=== PATIENT | male | born 1980 | race Two or more races ===

== ENCOUNTER 2021-12-18 12:51 | Outpatient (REF) | payer OTHER, SELFPAY ==
--- NOTE | ~2021-12-18 | US_ITS ---
EXAMINATION: US SCROTUM CLINICAL INFORMATION: Left testicular pain. COMPARISON: None TECHNIQUE: A sonogram of the scrotum was performed assessing baldwin-scale appearance and color Doppler flow. Spectral Doppler analysis of the arterial and venous flow were performed in the testes bilaterally. FINDINGS: RIGHT: Right testicle measures 4.3 x 2.0 x 2.9 cm, volume 13.1 mL. No focal testicular parenchymal lesions are visualized. Spectral Doppler analysis of the arterial and venous flow is normal in the right testis. Right epididymal head is normal in size. No right hydrocele or varicocele is seen. Right epididymal Doppler flow is normal. LEFT: Left testicle measures 4.3 x 2.1 x 2.7 cm, volume 12.8 mL. No focal testicular parenchymal lesions are visualized. Spectral Doppler analysis of the arterial and venous flow is normal in the left testis. Left epididymal head is normal in size. There is a small simple cyst in the tail of the epididymis measuring 4 mm. No left hydrocele or varicocele is seen. Left epididymal Doppler flow is normal. US/US scrotum IMPRESSION: Small 4 mm cyst in the tail of the left epididymis. Otherwise unremarkable exam.
== END 2021-12-18 12:52 | disposition home or self-care (01) ==
LOC: HO.HMGCX 12:51
PROVIDERS: Visit Provider Internal Medicine
DX: N50.812 Left testicular pain (principal)
CPT/HCPCS: 76870

== ENCOUNTER 2021-12-20 15:46 | Emergency (ER) | payer OTHER, SELFPAY ==
--- NOTE | ~2021-12-20 | US_ITS ---
EXAMINATION: RIGHT CALF ULTRASOUND CLINICAL INFORMATION: Pain status post running. COMPARISON: None TECHNIQUE: Targeted ultrasound. FINDINGS: The study demonstrates haziness appearance of the gastrocnemius muscle near the myotendinous junction with edematous changes. There is trace fluid posterior to the Achilles tendon as well as the level the ankle mortise. US/US extremity nonvascular IMPRESSION: There is evidence for soft tissue injury with sonographic changes near the myotendinous junction of the gastrocnemius muscle and the Achilles tendon. Recommend MRI to assess the extent of injury. There is no full-thickness tear of the Achilles tendon demonstrated.
[2021-12-20 16:27] VITALS: BP 127/91; PULSE 100; RESP 16; TEMP 36.9; O2SAT 97; BMI 34.4
[2021-12-20] MEDS: NaPROXEN 500 MG TABLET PO (16:52)
--- NOTE | 2021-12-20 17:06 | ED_ITS ---
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 Denies direct injury/trauma or fall. Admits to associated tingling. Onset (ago): hour(s) Related Data Previous Rx's Medication Instructions Recorded cyclobenzaprine 5 mg tablet 5 mg PO Q8H PRN 5 Days #14 tab 12/20/21 hydrocodone 5 mg-acetaminophen 325 1 tab PO Q8H PRN 3 Days #7 tab 12/20/21 mg tablet naproxen 500 mg tablet 500 mg PO BID PRN 10 Days #20 tab 12/20/21 Allergies Allergy/AdvReac Type Severity Reaction Status Date / Time Seasonal Allergies Allergy Runny Nose Verified 12/20/21 16:27 Review of Systems Review of Systems: Constitutional: No Fever, No Chills ENT/Mouth: No Ear Pain, No Nasal Congestion, No sore throat, No Rhinorrhea, No Swallowing Difficulty Cardiovascular: No Chest Pain, No SOB Respiratory: No Cough, No Sputum Gastrointestinal: No Nausea, No Vomiting, No Diarrhea, No Constipation, No Abdominal pain Genitourinary:, No Dysuria, No Urinary Frequency, No Urgency, No Flank Pain Musculoskeletal: +calf pain, No Myalgias, +calf Swelling Skin: No Skin Lesions, No rash Neuro: No Weakness, No Numbness, No Paresthesias Yes all other systems are reviewed and are negative [facility] Past Medical History Attestation statement: The following information was validated with the patient. Surgical History H/O vasectomy Social History Social History Advance Directives: No Advance Directives Information Provided: No Physical Exam Vital Signs: Vital Signs: Last Vital Signs Temp 98.4 F 12/20/21 16:27 Pulse 100 12/20/21 16:27 Resp 16 12/20/21 16:27 BP 127/91 H 12/20/21 16:27 Pulse Ox 97 12/20/21 16:27 BMI result Body Mass Index 34.4 Const: General: cooperative, healthy appearing and no acute distress Orientation/consciousness: patient oriented x3 Limitations: no limitations HEENT: Head: Yes normal to inspection and Yes atraumatic Ears: hearing grossly normal bilaterally General nose exam: Normal external nose present Face and sinus: Yes normal facial exam Eyes: General: appearance normal, both eyes and all related structures EOM: EOMs intact bilaterally Neck: Neck: Yes normal visual inspection and Yes no meningeal signs Resp: Effort & Inspection: normal respiratory effort and no respiratory distress Cardio: Rate: regular rate Peripheral pulses: dorsalis pedis present Skin: Rashes: no rashes Wounds: no wounds Neuro: General: patient oriented x3, tone normal and no meningeal signs Gait exam (Neuro): Normal gait present Extrem: Other: + swelling to right calf with tenderness greatest at medial aspect. No appreciable erythema/ecchymosis. Dunham test negative. Neurovascular intact distally Course Course Course Narrative: US extremity nonvascular IMPRESSION: There is evidence for soft tissue injury with sonographic changes near the myotendinous junction of the gastrocnemius muscle and the Achilles tendon. Recommend MRI to assess the extent of injury. There is no full-thickness tear of the Achilles tendon demonstrated. > patient placed in a posterior short-leg in plantar flexion & supplied with crutches to be nonweightbearing and follow up with Orthopedics Case discussed with Dr. 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 On exam vital signs stable, NAD/well-appearing, physical exam as above. Concern for gastronemius tear/strain vs Achilles tendon rupture/partial tear Plan: Ultrasound Medical Records Attestation: I reviewed the patient's medical records. Lab Data Attestation: I reviewed the patient's lab results. Discharge Plan Discharge Clinical Impression: Gastrocnemius tear Qualifiers: Encounter type: initial encounter Laterality: right Qualified Code(s): S86.111A - Strain of other muscle(s) and tendon(s) of posterior muscle group at lower leg level, right leg, initial encounter Patient Disposition: Home, Self-Care Instructions: R.I.C.E. Treatment (ED), Crutch Instructions (ED) Additional Instructions: Your ultrasound shows significant soft tissue injury near your gastrocnemius muscle and Achilles tendon, suspicious for tear Keep splint on, dry, and clean DO NOT PUT ANY WEIGHT ON YOUR RIGHT LEG. USE CRUTCHES. Ice and elevate Flexeril is a muscle relaxer, take at night as it makes you drowsy, do not drive, drink alcohol, or operate machinery while taking it Naproxen as an anti-inflammatory / pain medication, take with food [place] as an opiate pain medication, take only when pain is severe for the next 3 days. Your [place] has Tylenol mixed in do not exceed 4 g of Tylenol in 1 day. In addition take Tylenol at home If symptoms persist or worsen, pain becomes unbearable, you developed urinary retention or incontinence, or weakness return to the ED Prescriptions: New hydrocodone-acetaminophen 5-325 mg tablet 1 tab PO Q8H PRN (Reason: pain, severe) 3 Days Qty: 7 0RF naproxen 500 mg tablet 500 mg PO BID PRN (Reason: pain) 10 Days Qty: 20 0RF cyclobenzaprine 5 mg tablet 5 mg PO Q8H PRN (Reason: pain (scale score 7-10)) 5 Days Qty: 14 0RF Referrals: Yao Castellanos MD [Physician] - 3 days
== END 2021-12-20 19:19 | disposition home or self-care (01) ==
PROVIDERS: Emergency Provider Emergency Medicine Emergency Medical Services; PCP Internal Medicine
DX: S86.111A Strain of other muscle(s) and tendon(s) of posterior muscle group at lower leg level, right leg, initial encounter (principal); M79.661 Pain in right lower leg; Y29.XXXA Contact with blunt object, undetermined intent, initial encounter; Y93.9 Activity, unspecified; Y92.9 Unspecified place or not applicable; Y99.9 Unspecified external cause status; Z79.899 Other long term (current) drug therapy
CPT/HCPCS: 76882; 99283; 99284

== ENCOUNTER → 2021-12-24 11:15 | Outpatient (BNVA) | payer OTHER, SELFPAY | PROVIDERS: PCP Internal Medicine; Visit Provider Physician Assistant | DX: S86.011A Strain of right Achilles tendon, initial encounter (principal) | CPT/HCPCS: 99202 ==

== ENCOUNTER 2022-01-02 09:07 | Outpatient (REF) | payer OTHER, SELFPAY ==
[2022-01-02 11:10] LABS: MANUAL DIFF FLAG NO
[2022-01-02 11:26] LABS: Basophils Absolute Auto 0.1 X10*3/uL (0.0-0.2); Eosinophils Absolute Auto 0.2 X10*3/uL (0.0-0.4); Eosinophils Percent Auto 4.4 % (0-4); Hematocrit 45.2 % (42.0-52.0); Hemoglobin 15.1 g/dl (14.0-18.0); Imm Gran Abs Auto 0.01 X10*3/uL (0.00-0.03); Imm Gran Pct Auto 0.2 % (0.0-0.4); Lymphocytes Absolute Auto 1.2 X10*3/uL (1.2-4.9); Lymphocytes Percent Auto 25.2 % (20-40); Mean Corpuscular HGB Conc 33.4 g/dl (31.0-36.0); Mean Corpuscular Hemoglobin 29.8 pg (27.0-33.0); Mean Corpuscular Volume 89.3 fL (80.0-98.0); Mean Platelet Volume 11.4 fL (9.4-12.4); Monocytes Absolute Auto 0.4 X10*3/uL (0.1-1.2); Neutrophils Absolute Auto 2.9 x10*3/uL (2.0-8.3); Neutrophils Percent Auto 60.2 % (45-73); Platelet Count 232 X10*3/uL (160-400); Red Blood Count 5.06 X10*6/uL (4.60-5.80); Red Cell Distribution Width 12.1 % (11.0-16.0); White Blood Count 4.8 X10*3/uL (4.8-10.8)
[2022-01-02 12:00] LABS: Alanine Aminotransferase 29 U/L (0-40); Anion Gap 11 (12-20); Aspartate Amino Transferase 22 U/L (5-37); Bilirubin Total 0.4 mg/dL (0.0-1.0); Blood Urea Nitrogen 18 mg/dL (9-16); Calcium 9.4 mg/dL (8.4-10.2); Carbon Dioxide 26 mmol/L (22-29); Chloride 110 mmol/L (96-108); Estimated Glomerular Filt Rate > 60; Glucose Random 96 mg/dL (60-115); Potassium 4.8 mmol/L (3.3-5.1); Sodium 142 mmol/L (135-145); Thyroid Stimulating Hormone 2.22 uIU/mL (0.32-4.0); Total Protein 7.3 g/dL (6.5-8.0); Vitamin D 25-OH Total 24.3 ng/mL (>30)
[2022-01-02 12:01] LABS: Alkaline Phosphatase 75 U/L (39-117); Cholesterol 160 mg/dL; HDL Cholesterol 36 mg/dL; LDL Cholesterol Calculated 94 mg/dl; Triglycerides 151 mg/dL
[2022-01-08 01:13] LABS: Testosterone, Total 162 ng/dL (250-1100)
== END 2022-01-02 09:08 | disposition home or self-care (01) ==
LOC: HO.HMGCLDS 09:07
PROVIDERS: PCP Internal Medicine; Visit Provider Internal Medicine
DX: Z00.01 Encounter for general adult medical examination with abnormal findings (principal)
CPT/HCPCS: 36415; 80053; 80061; 82306; 84403; 84443; 85025

== ENCOUNTER → 2022-01-28 09:37 | Outpatient (BNVA) | payer OTHER, SELFPAY | PROVIDERS: PCP Internal Medicine; Visit Provider Physician Assistant | DX: S86.111A Strain of other muscle(s) and tendon(s) of posterior muscle group at lower leg level, right leg, initial encounter (principal) | CPT/HCPCS: 99212 ==

== ENCOUNTER → 2022-01-29 13:46 | Outpatient (REF) | payer OTHER, SELFPAY | LOC: HO.SL 13:46 | PROVIDERS: PCP Internal Medicine; Visit Provider Internal Medicine | DX: R53.83 Other fatigue (principal) | CPT/HCPCS: 95806 ==

== ENCOUNTER 2022-03-19 09:24 | Outpatient (REF) | payer OTHER, SELFPAY ==
[2022-03-26 11:56] LABS: Testosterone, Total 182 ng/dL (250-1100)
== END 2022-03-19 09:25 | disposition home or self-care (01) ==
LOC: HO.HMGCLDS 09:24
PROVIDERS: PCP Internal Medicine; Visit Provider Internal Medicine
DX: R79.89 Other specified abnormal findings of blood chemistry (principal)
CPT/HCPCS: 36415; 84403

== ENCOUNTER 2022-12-23 11:22 | Outpatient (REF) | payer OTHER, SELFPAY ==
[2022-12-23 12:50] LABS: MANUAL DIFF FLAG NO
[2022-12-23 12:56] LABS: Basophils Percent Auto 0.8 % (0-2); Eosinophils Absolute Auto 0.1 X10*3/uL (0.0-0.4); Hematocrit 47.1 % (42.0-52.0); Hemoglobin 15.8 g/dl (14.0-18.0); Imm Gran Abs Auto 0.02 X10*3/uL (0.00-0.03); Imm Gran Pct Auto 0.4 % (0.0-0.4); Lymphocytes Absolute Auto 1.6 X10*3/uL (1.2-4.9); Lymphocytes Percent Auto 30.4 % (20-40); Mean Corpuscular HGB Conc 33.5 g/dl (31.0-36.0); Mean Corpuscular Hemoglobin 29.2 pg (27.0-33.0); Mean Corpuscular Volume 87.1 fL (80.0-98.0); Mean Platelet Volume 10.9 fL (9.4-12.4); Monocytes Absolute Auto 0.3 X10*3/uL (0.1-1.2); Monocytes Percent Auto 5.7 % (2-11); Neutrophils Absolute Auto 3.1 x10*3/uL (2.0-8.3); Neutrophils Percent Auto 60.7 % (45-73); Platelet Count 264 X10*3/uL (160-400); Red Blood Count 5.41 X10*6/uL (4.60-5.80); Red Cell Distribution Width 11.8 % (11.0-16.0); White Blood Count 5.1 X10*3/uL (4.8-10.8)
[2022-12-23 13:39] LABS: Alanine Aminotransferase 29 U/L (0-40); Albumin Level 4.4 g/dL (3.5-5.0); Alkaline Phosphatase 68 U/L (39-117); Anion Gap 11 (12-20); Aspartate Amino Transferase 21 U/L (5-37); Bilirubin Total 0.6 mg/dL (0.0-1.0); Blood Urea Nitrogen 14 mg/dL (9-16); Calcium 9.3 mg/dL (8.4-10.2); Carbon Dioxide 28 mmol/L (22-29); Chloride 106 mmol/L (96-108); Cholesterol 196 mg/dL; Estimated Glomerular Filt Rate > 60; Glucose Random 87 mg/dL (60-115); HDL Cholesterol 41 mg/dL; LDL Cholesterol Calculated 133 mg/dl; Potassium 4.7 mmol/L (3.3-5.1); Sodium 140 mmol/L (135-145); Total Protein 7.2 g/dL (6.5-8.0); Triglycerides 112 mg/dL
[2022-12-23 13:55] LABS: Vitamin D 25-OH Total 22.4 ng/mL (>30)
[2022-12-30 12:34] LABS: Testosterone, Total 228 ng/dL (250-1100)
== END 2022-12-23 11:23 | disposition home or self-care (01) ==
LOC: HO.MANLDS 11:22
PROVIDERS: Visit Provider Internal Medicine
DX: Z00.00 Encounter for general adult medical examination without abnormal findings (principal); E55.9 Vitamin D deficiency, unspecified; R79.89 Other specified abnormal findings of blood chemistry
CPT/HCPCS: 36415; 80053; 80061; 82306; 84403; 85025

== ENCOUNTER 2023-11-02 07:50 | Outpatient (REF) | payer OTHER, SELFPAY ==
--- NOTE | ~2023-11-02 | FL_ITS ---
EXAMINATION: XR FLUOROSCOPY UPPER GI WITH AIR CLINICAL INFORMATION: Postprandial reflux COMPARISON: None TECHNIQUE: Fluoroscopic air contrast upper GI examination was performed utilizing standard techniques with thin and thick barium and effervescent granules. Numerous spot images were obtained. FINDINGS: Normal swallow mechanism present with no evidence of laryngeal penetration or subglottic aspiration. No cricopharyngeal achalasia. Dual and single contrast images of the esophagus demonstrate normal caliber, contour, and mucosal pattern. No evidence of stricture, mass, or ulcerations identified. Esophageal dysmotility results in episodic to and fro motion of the barium column with nonpropulsive tertiary contractions noted in the mid and distal esophagus. A small type I hiatal hernia is present. Gastroesophageal reflux is seen up to the midesophagus. Dual contrast and single contrast images of the stomach demonstrated normal contour and mucosal pattern without evidence of mass, ulceration, or other abnormality. Contrast freely passed into the gastric antrum and duodenal bulb without delay. Single and air-contrast images of the duodenal bulb demonstrate no abnormality. The duodenal sweep has a normal appearance, course, and mucosal fold appearance. No malrotation. The imaged proximal jejunum has a normal fold pattern and caliber. FLUOROSCOPY TIME: 5 minutes 13 seconds Number of Spot Images: 10 Number of Cine: 12 DOSE AREA PRODUCT: 3563 uGy-m2 (microgray-meter squared) FL/FL upper GI w air IMPRESSION: 1. To and fro motion of the barium column with nonpropulsive tertiary contractions in the mid and distal esophagus consistent with esophageal dysmotility. 2. Small type I hiatal hernia. 3. Moderate gastroesophageal reflux. This procedure was performed by Morro Alejandre PA-C, and supervised by Dr. Roper
== END 2023-11-02 07:51 | disposition home or self-care (01) ==
LOC: HO.XRAY 07:50
PROVIDERS: PCP Internal Medicine; Visit Provider Internal Medicine
DX: R13.19 Other dysphagia (principal)
CPT/HCPCS: 74246

== ENCOUNTER → 2023-11-02 07:52 | Outpatient (BNV) | payer OTHER, SELFPAY | PROVIDERS: PCP Internal Medicine; Visit Provider Physician Assistant Surgical | DX: K21.9 Gastro-esophageal reflux disease without esophagitis (principal) | CPT/HCPCS: 74246 ==

== ENCOUNTER 2024-05-05 15:37 | Outpatient (REF) | payer OTHER, SELFPAY ==
--- NOTE | ~2024-05-05 | XR_ITS ---
EXAMINATION: XR SHOULDER, RIGHT CLINICAL INFORMATION: Shoulder pain. COMPARISON: None available. TECHNIQUE: AP external rotation, Grashey, scapular Y, and axillary views of the right shoulder. FINDINGS: The bones and soft tissues are normal. No fracture. Glenohumeral and acromioclavicular alignment is anatomic with normal joint space. No abnormal soft tissue calcifications. XR/XR shoulder RT min 2V IMPRESSION: Normal right shoulder. Electronically signed by: Ramírez Angeles MD 05/12/2024 06:58 AM EDT RP
== END 2024-05-05 15:38 | disposition home or self-care (01) ==
LOC: HO.XRAY 15:37
PROVIDERS: PCP Internal Medicine; Visit Provider Internal Medicine
DX: M25.511 Pain in right shoulder (principal)
CPT/HCPCS: 73030

== ENCOUNTER 2024-06-30 08:21 | Day surgery (SDC) | payer OTHER, SELFPAY ==
[2024-06-28 14:04] VITALS: BMI 35.3
[2024-06-30 08:56] VITALS: BMI 36.0
[2024-06-30 09:21] VITALS: BP 123/87; PULSE 82; RESP 12; TEMP 36.6; O2SAT 98
[2024-06-30] MEDS: Lactated Ringers 1,000 ML 50 ML IVCONT ×2 (09:24→10:13)
--- NOTE | 2024-06-30 10:00 | P.CONAN_ITS ---
HPI - Anesthesia Eval Consult details Narrative: 44 yo M presenting for EGD PMFSH Active Problems Active Problems: All Active Problems Strain of calf muscle (Acute) Past Medical History Medical History (Updated 06/28/24 @ 14:05 by Johanne Cesar RN) GERD (gastroesophageal reflux disease) Family History Family history of problems with anesthesia: No Surgical History Surgical History H/O vasectomy History of Problems with Anesthesia: No Social History Social History (Updated 06/28/24 @ 14:06 by Johanne Cesar RN) Household Members: Spouse Are you a primary career development coordinator/teacher to a significant other at home: No Do you presently have visiting nurse or other home services: No Patient Tobacco Use Status: Never used Tobacco Use of substances other than those prescribed or required for medical reasons: No Have you been hit, kicked, punched, or otherwise hurt by someone within the past year? 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 Meds Allergies Allergy/AdvReac Type Severity Reaction Status Date / Time Seasonal Allergies Allergy Runny Nose Verified 06/30/24 08:55 Active Medications: Current Medications Lactated Ringer's (Lr) 1,000 mls @ 50 mls/hr IVCONT .Q20H FRANCINE Last Admin: 06/30/24 10:13 Dose: 50 mls/hr Naloxone HCl (Naloxone Hcl 0.4 Mg/Ml Vial) 0.04 mg IVPUSH Q5M PRN PRN Reason: Excessive sedation or RR < 8 Home Medications ?Medication ?Instructions ?Recorded ?Confirmed ?Last Taken ?Type No Known Home Meds 06/28/24 06/28/24 Unknown History Exam Exam Date and Time: 06/30/24 1000 Height,Weight and Vital Signs: Height 5 ft 7 in Weight 104.326 kg Last Vital Signs Temp 97.8 F 06/30/24 09:21 Pulse 82 06/30/24 09:21 Resp 12 06/30/24 09:21 BP 123/87 06/30/24 09:21 Pulse Ox 98 06/30/24 09:21 O2 Del Method Room Air 06/30/24 09:21 Airway Mallampati Class: I TM Dist: >3cm Neck ROM: Full Loose/Missing/Broken Teeth: No (patient denies loose or broken teeth) Heart: S1S2 Lungs: CTAB Assessment and Plan Assessment Anesthesia Assessment: Anesthesia Plan Discussed and Chart Reviewed Final Anesthetic Review Family History of Problems with Anesthesia: No History of Problems with Anesthesia: No NPO: Yes ASA Class: I Final Preanesthetic Review: No Changes in Pt Med Stat, Meds/Allgs Chart Reviewed, Consent Obtained/Reviewed and Anes Risks/Benef Reviewed Patient Risk: Low Procedure Risk: Low Anesthetic Plan Anesthetic Plan: MAC: and Agree w/ Assess. and Plan Disposition: Standard PACU
[2024-06-30 10:26] VITALS: BP 115/71; PULSE 80; RESP 12; TEMP 36.6; O2SAT 95
--- NOTE | 2024-06-30 10:32 | P.BOP_ITS ---
Brief Operative Note Date of Service: 06/30/24 Pre-op diagnosis: GERD Post-op diagnosis: other (Hiatal hernia) Procedure: EGD with biopsies Surgeon: Ziggy Lopez MD Anesthesia: MAC Was an Insole Tape Stitcher Uco used for this Procedure?: No Estimated blood loss (mL): 2.0 Pathology: other (A. EG Junction at 38cm) Condition: stable Disposition: PACU
[2024-06-30 10:41] VITALS: BP 128/85; PULSE 78; RESP 16; TEMP 36.6; O2SAT 98
--- NOTE | 2024-06-30 10:51 | OP_ITS ---
DATE OF SERVICE: 06/30/2024 SURGEON: Ziggy Lopez MD INDICATIONS: The patient presents for evaluation of gastroesophageal reflux. Full consent was obtained from him for this, including risks of bleeding and perforation. PREOPERATIVE DIAGNOSIS: POSTOPERATIVE DIAGNOSIS: PROCEDURE PERFORMED: Esophagogastroduodenoscopy with biopsies. ESTIMATED BLOOD LOSS: COMPLICATIONS: ANESTHESIA: Monitored anesthesia care. ASSISTANTS: SPECIMENS: PREOPERATIVE DIAGNOSES: Gastroesophageal reflux and heartburn. POSTOPERATIVE DIAGNOSES: Gastroesophageal reflux and heartburn, small hiatal hernia. DESCRIPTION OF PROCEDURE: The patient was placed in the left lateral decubitus position. The Olympus video gastroscope was passed in the posterior oropharynx and upper esophagus under direct vision. The scope was passed slowly to the distal esophagus. The gastroesophageal junction appeared at 38 cm. There was some slight irregularity, consistent with reflux but no evidence of any esophagitis nor any definitive evidence of Summers mucosa. The scope entered the stomach. There was a small hiatal hernia. The scope was advanced to the pylorus and the duodenum was cannulated to the descending portion. The duodenum including the bulb appeared normal without mass or ulceration. The scope was withdrawn back into the stomach. The gastric antrum and body appeared normal with good peristalsis. The scope was retroflexed, visualizing the proximal stomach carefully which appeared normal, without any sign of mass or ulceration. The scope was straightened and withdrawn back to the esophagus. Biopsies were obtained at the EG junction at 38 cm. Proximal to this, the esophageal mucosa appeared normal. The scope was withdrawn from the patient. He tolerated the procedure well and was returned to recovery area in stable condition. IMPRESSION: Small hiatal hernia, gastroesophageal reflux. PLAN: The results of biopsies will be checked. At this point, he reports that he is doing well with only sporadic episodes of heartburn and reflux. He is not having any other significant upper GI complaints. As such, given today's findings and his history, I would recommend that he continue to treat himself with p.r.n. medications such as [id number] H2 blockers or antacids. I did advise him that if the reflux becomes more frequent and problematic, he can let me know, and we can always start him on a PPI instead, but at this point, I do not think he requires that. This has been discussed with his . He will see me on a p.r.n. basis. MD SAMY Rico/SEBASTIAN / [phone]
== END 2024-06-30 13:20 | disposition home or self-care (01) ==
PROVIDERS: PCP Internal Medicine; Visit Provider Internal Medicine
PROC: 0DJ08ZZ Inspection of Upper Intestinal Tract, Via Natural or Artificial Opening Endoscopic (ICD-10-PCS; CPT 43235; principal; 2024-06-30 09:30)
DX: K44.9 Diaphragmatic hernia without obstruction or gangrene (principal); K21.9 Gastro-esophageal reflux disease without esophagitis
CPT/HCPCS: 43239; 88305; 88313; J2003; J2704

== ENCOUNTER 2025-05-23 15:06 | Outpatient (REF) | payer OTHER, SELFPAY ==
--- OUTSIDE RECORDS SUMMARY | 2024-06-30 05:40 | XMS_ITS ---
Author Organization [facility] Address [address] [place] [address] Care Team Providers Care Software Engineer Kernel Name Role Phone Chao Sutherland Primary Care Provider Ziggy Groves [phone] REASON FOR VISIT gerd,heartburn Problems Problem Type SNOMED Code ICD Code Onset Dates Problem Status W/U Status Risk Notes Problem Gastro-esophagea l reflux disease without esophagitis (456799416) Gastro-esophage al reflux disease without esophagitis (K21.9) Active confirmed Encounters Encounter Location Date Provider Diagnosis [facility] [place] [address] [place] [phone] 06/30/2024 Ziggy Lopez Gastro-esophageal reflux disease without [...] * ANTHONY ROBERSONOB: 0 (45 yo M)Acc No.[id number]:06/30/2024 EGD/MAC Patient: JOSE ALFREDO DIAZ Provider: Yeimy Lopez MD :1980 A ge:44 Y S ex:Male Date:06/30/2024 Address:[address] [place] [address] Pcp:Chao Sutherland Subjective: * Chief Complaints: * 1 . Gerd,heartburn. * Medical History: Objective: * Vitals: Assessment: * Assessment: 1. G hakeem-esophageal reflux disease without esophagitis - K21.9 (Primary) 2 .?Hiatal hernia - K44.9 3 . H eartburn - R12 Plan: * Treatment: * Procedure Codes: 4 3239 UPPER GI ENDOSCOPY, BIOPSY * * The named appointment provid er may or may not be the originator of this progress note, and it is not deemed complete until electronically signed by the appointment provider. Sign off status: Pending * Provider: Yeimy Lopez MD Date: 08/30/2023 Generated for Zacarias malave/Lavelle/Rachaelitting on: 0 05/23/2025 05:35 PM EDT
[2025-05-23 16:04] LABS: MANUAL DIFF FLAG NO
[2025-05-23 16:21] LABS: Hematocrit 43.9 % (42.0-52.0); Hemoglobin 15.0 g/dl (14.0-18.0); Imm Gran Abs Auto 0.01 X10*3/uL (0.00-0.03); Imm Gran Pct Auto 0.1 % (0.0-0.4); Lymphocytes Absolute Auto 1.9 X10*3/uL (1.2-4.9); Mean Corpuscular HGB Conc 34.2 g/dl (31.0-36.0); Mean Corpuscular Hemoglobin 29.6 pg (27.0-33.0); Mean Corpuscular Volume 86.6 fL (80.0-98.0); NRBC Abs Auto 0.000 X10*3/uL (0.0-0.012); NRBC Pct Auto 0.0 /100WBC (0.0-0.2); Platelet Count 278 X10*3/uL (160-400); Red Blood Count 5.07 X10*6/uL (4.60-5.80); White Blood Count 6.7 X10*3/uL (4.8-10.8)
[2025-05-23 16:23] LABS: Hemoglobin A1C 138.0573 umol/L; Total Hemoglobin (HGBA1C) 3998.2669 umol/L
[2025-05-23 17:03] LABS: Alanine Aminotransferase 40 U/L (0-40); Albumin Level 4.4 g/dL (3.5-5.0); Alkaline Phosphatase 78 U/L (39-117); Anion Gap 11 (12-20); Aspartate Amino Transferase 36 U/L (5-37); Blood Urea Nitrogen 19 mg/dL (9-16); Calcium 9.0 mg/dL (8.4-10.2); Carbon Dioxide 29 mmol/L (22-29); Chloride 105 mmol/L (96-108); Estimated Glomerular Filt Rate > 60; Potassium 4.2 mmol/L (3.3-5.1); Sodium 141 mmol/L (135-145); Total Protein 7.2 g/dL (6.5-8.0)
--- OUTSIDE RECORDS SUMMARY | 2025-05-23 17:36 | XMS_ITS | Encounter Summary ---
Author Organization [facility] Address 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 Name Role Phone Pcp, Unknown Primary Care Provider Chao Vicente DO Primary Care Provider [phone] Reason for Referral * MRI/CAT Scan - Closed Specialty Diagnoses / Procedures Referred By Florina mera Referred To Contact Radiology Diagnoses Tear of right rotator cuff, unspecified tear extent, unspecified whether traumatic Procedures MRI Shoulder (Right) Chao Sutherland DO Phone: tel: fax: [email or web address] Referral ID Status Reason Start Date Expiration Date Visits Re quested Visits Authorized [id number] Closed 10/23/2019 10/22/2020 1 1 Encounter Details Date Type Department Care Team (Late st Contact Info) Description 10/23/2019 Transcribe Orders Virtual Department [address] [place] [address] Chao Sutherland DO [address] [place] [address] [place] [address] [email or web address] Tear of right rotator cuff, unspecified tear extent, unspecified whether traumatic (Primary Dx) Social History Tobacco Use Types Packs/Day Years Used Date Smoking Tobacco: Never Assessed Sex and Gender Information Value Date Recorded Sex Assigned at Not on file Legal Sex Male 2:21 PM EST Gender Identity Not on file Sexual Orientation Not on file documented as of this encounter Plan of Treatment Not on file documented as of this encounter Results * MRI SHOULDER WITHOUT CONTRAST (RIGHT) (10/26/2019 8:17 AM EST) Anatomical Region Laterality Modality Shoulder Right Magnetic Resonan ce 10/26/2019 12:1 2 PM EST Impressions 10/26/2019 12:20 PM EST Impression: 1. Mild supraspinatus tendinopathy with no evidence of rotator cuff tear. 2. Mild acromioclavicular and glenohumeral degenerative change. POS: [id number] Narrative 10/26/2019 12:20 PM EST Clinical history: Tear of right rotator cuff. The patient reports injuring the right shoulder early in the 2005 with eventual resolution of initial symptoms. Began to feel pain and numbness in the right shoulder extending down to the right elbow a few months ago. Technique: MRI of the right shoulder was performed without intravenous contrast. Comparison: None. Findings: Rotator cuff: There is mild supraspinatus tendinopathy. The infraspinatus, teres minor and subscapularis tendons are intact. There is normal muscle bulk. Glenoid labrum and biceps tendon: There is intermediate signal in the superior labrum, suggesting degeneration. No displaced labral tear seen. The biceps tendon is in the groove. AC joint: There is mild bony proliferation and subchondral marrow edema at the acromioclavicular joint. Articular cartilage and bone: Mild chondral surface irregularities are seen in the posterior superior glenoid. Subchondral cysts are noted in the posterior superior glenoid. No focal chondral defects are seen over the humeral head. No evidence of glenohumeral joint effusion. Procedure Note Mariela Perez MD - 10/26/2019 Clinical history: Tear of right rotator cuff. The patient reportsinjuring the right shoulder early in the 2005 with eventual resolution ofinitial symptoms. Began to feel pain and numbness in the right shoulderextending down to the right elbow a few months ago. Technique: MRI of the right shoulder was performed without intravenouscontrast. Comparison: None. Findings: Rotator cuff: There is mild supraspinatus tendinopathy. Theinfraspinatus, teres minor and subscapularis tendons are intact. There isnormal muscle bulk. Glenoid labrum and biceps tendon: There is intermediate signal in thesuperior labrum, suggesting degeneration. No displaced labral tear seen.The biceps tendon is in the groove. AC joint: There is mild bony proliferation and subchondral marrow edema atthe acromioclavicular joint. Articular cartilage and bone: Mild chondral surface irregularities areseen in the posterior superior glenoid. Subchondral cysts are noted inthe posterior superior glenoid. No focal chondral defects are seen overthe humeral head. No evidence of glenohumeral joint effusion. IMPRESSION: Impression: 1. Mild supraspinatus tendinopathy with no evidence of rotator cufftear. 2. Mild acromioclavicular and glenohumeral degenerative change. POS: [id number] Chao Sutherland DO IM MR EXTREMITY Final Result documented in this encounter Visit Diagnoses Diagnosis Tear of right rotator cuff, unspecified tear extent, unspecified whether traumatic- Primary Tear of right rotator cuff, unspecified tear extent, unspecified whether traumatic documented in this encounter Care Teams Cement And Concrete Plant Worker Relationship Specialty Start Date End Date Pcp, Unknown PCP - General 10/23/19 10/23/19 Chao Sutherland DO [email or web address] PCP - General Internal Medicine 10/24/19 documented as of this encounter Additional Source Comments The information contained in this document represents components of the legal health record. It is not the complete legal health record.[facility]
--- OUTSIDE RECORDS SUMMARY | 2025-05-23 17:36 | XMS_ITS | Patient Health Record ---
Author Organization [facility] Address [address] [place] [address] Care Team Providers Care Manager Stylist Name Role Phone Chao Sutherland Primary Care Provider Ziggy Groves Unavailable [phone] Allergies Allergen (clinical drug ingredient) Drug/Non Drug Allergy documented on EMR Reaction Allergy Type Onset Date Status seasonal (uncoded) Unknown Allergy A ctive Results Component Value Reference Range Notes Pathology (Not yet reviewed by provider) Interpretation: Performing Lab:[facility], [address] [place] [id number] Notes/Report: Reason For Referral Referred Organization [facility] Referred Provider Ziggy Lopez Referred Address [address],[place], [place],[address], Referred Provider Specialty Gastroentero logy General Notes Jayleen Kumar 024 09:38:59 AM EDT > requested authorization for egd from [facility] for new referral for the outof network egd Referral Priority Routine Immunizations Vaccine Route Administration Date Status Comme nts Influenza Unknown 06/22/2023 Administered Social History Tobacco Use: Social History Observation Description Date Details (start date - stop date) Never Smoker NA - NA Tobacco Use/Smoking Question Answer Notes Patient is a nonsmoker Alcohol Screen Question Answer Notes Did you have a drink contain ing alcohol in the past year? Yes How often did you have a dri nk containing alcohol in the past year? Monthly or less (1 point) How many drinks did you have on a typical day when you were drinking in the past year? 1 or 2 drinks (0 point) How often did you have 6 or more drinks on one occasion in the past year? Never (0 point) Points 1 Interpretation Negative Section Notes: Nonsmoker; no sig alcohol Problems Problem Type SNOMED Code ICD Code Onset Dates Problem Status W/U Status Risk Notes Problem Gastro-esophageal reflux disease without esophagitis (265617436) Gastro-esophag eal reflux disease without esophagitis (K21.9) Active confirmed Problem Heartburn (37844847) Heartburn (R12) Active confirmed Problem Gastroesophageal reflux disease (144535680) Chronic GERD (K21.9) Active confirmed Encounters Encounter Location Date Provider Diagnosis [facility] [address] [place] [phone] 06/30/2024 Ziggy Lopez Gastro-esophageal reflux disease without esophagitis K21.9 ; Hiatal hernia K44.9 and Heartburn R12 Assessments Encounter Date Diagnosis (ICD Code) Assessment Notes Treatment Notes Treatment Clinical Notes Section Notes 06/30/2024 Gastro-esophagea l reflux disease without esophagitis (ICD-10 - K21.9) 06/30/2024 Hiatal hernia (ICD-10 - K44.9) 06/30/2024 Heartburn (ICD-10 - R12) Plan Of Treatment Pending Test Test Name Order Date Pathology 06/30/2024 Future Test Test Name Order Date UPPER GI ENDOSCOPY 03/10/2024 Insurance Providers Payer Name Payer Address Payer Phone Subscriber Number Group Number Insured Name Patient Relationship to Insured Coverage Start Date Coverage End Date [facility] Attn Claims [address] [place] [address] [phone] [id number] JOSE ALFREDO ROBERSON Self - patient is the insured Medical (General) History Medical History History ICD Code Denies PA,DM,CVA,Lung disease,renal dise ase GERD Surgical History Surgery Date(Month/Year)
--- OUTSIDE RECORDS SUMMARY | 2025-05-23 17:36 | XMS_ITS | Clinical Summary ---
Author Organization [facility] Address [address] [place] [phone] Phone Care Team Providers Care Streetcar Motorman Name Role Phone Unavailable Primary Care Provider Unavailabl e Allergies No known active allergies Medications No known medications Surgical History Surgery Date Site/Laterality Comments APPENDECTOMY VASECTOMY Social History Tobacco Use Types Packs/Day Years Used Date Smoking Tobacco: Never Smokeless Tobacco: Never Tobacco Cessation:Counseling Given: Not Answered Alcohol Use Standard Drinks/Week Comments Yes 0 (1 standard drink = 0.6 oz pur e alcohol) Socially Sex and Gender Information Value Date Recorded Sex Assigned at Male 05/17/2025 3:09 PM EDT Legal Sex Male 3:33 PM EDT Gender Identity Not on file Sexual Orientation Not on file Travel History Travel Start Travel End [place] 04/22/2025 05/23/2025 Obstetrics History Last Filed Vital Signs Vital Sign Reading Time Taken Comments Blood Pressure - - Pulse - - Temperature - - Respiratory Rate - - Oxygen Saturation - - Inhaled Oxygen Concentration - - Weight 99.8 kg (220 lb) 05/23/2025 2:00 PM EDT Height 170.2 cm (5' 7 ) 05/23/2025 2:00 PM EDT Body Mass Index 34.46 05/23/2025 2:00 PM EDT Plan of Treatment Upcoming Encounters Date Type Department Care Team (Late st Contact Info) Description 05/28/2025 9:30 AM EDT Hospital Encounter [facility] OR [address] [place] [phone] Charlie Ricci MD [address] [place] [address] 05/28/2025 9:30 AM EDT - 05/28/2025 1:00 PM EDT Surgery [facility] OR [address] [place] [phone] Charlie Ricci MD [address] [place] [address] RIGHT SHOULDER DIAGNOSTIC ARTHROSCOPY [36079 (CPT )] Scheduled Procedures Name Priority Associated Diagnoses Date/Ti me ARTHROSCOPY SHOULDER Superior glenoid labrum lesion of right shoulder, initial encounter 05/28/2025 9:30 AM EDT ACROMIOPLASTY REPAIR ROTATOR CUFF Superior glenoid labrum lesion of right shoulder, initial encounter 05/28/2025 9:30 AM EDT ARTHROSCOPY SHOULDER REPAIR ROTATOR CUFF Superior glenoid labrum lesion of right shoulder, initial encounter 05/28/2025 9:30 AM EDT REPAIR SHOULDER Superior glenoid labrum lesion of right shoulder, initial encounter 05/28/2025 9:30 AM EDT Health Maintenance Due Date Last Done Comments DTaP,Tdap,and Td Vaccines (1 - Tdap) 02/26/1999 Hepatitis B Vaccines (1 of 3 - 19+ 3-dose series) 02/26/1999 Depression Screening 08/30/2024 COVID-19 Vaccine (1 - 2023-2 5 season) 2025 Influenza Vaccine (#1) 2025 Cholesterol Screening (Lipid Panel) 05/03/2025 Colorectal Cancer Screening: Colonoscopy 05/03/2025 HIV Screening 05/03/2025 Hepatitis C Screening 05/03/2025 Social Influencers of Health Screening 05/03/2025 RSV Immunization Adult Patie nts (1 - 1-dose 75+ series) 02/26/2055 HIB Vaccines Aged Out No longer eligi ble based on patient's age to complete this topic HPV Vaccines Aged Out No longer eligi ble based on patient's age to complete this topic Hepatitis A Vaccines Aged Out No long er eligible based on patient's age to complete this topic IPV Vaccines Aged Out No longer eligi ble based on patient's age to complete this topic MMR Vaccines Aged Out No longer eligi ble based on patient's age to complete this topic Meningococcal ACWY Vaccine Aged Out N o longer eligible based on patient's age to complete this topic Meningococcal B Vaccine Aged Out No l onger eligible based on patient's age to complete this topic Pneumococcal Vaccine: Pediat rics (0 to 5 Years) and At-Risk Patients (6 to 49 Years) Aged Out No longer eligible b ased on patient's age to complete this topic RSV Immunization Patients Un radha 20 months Aged Out No longer eligible b ased on patient's age to complete this topic Varicella Vaccines Aged Out No longer eligible based on patient's age to complete this topic Insurance [facility]
--- OUTSIDE RECORDS SUMMARY | 2025-05-23 17:36 | XMS_ITS | Encounter Summary ---
Author Organization [facility] Address [address] [place] [address] Phone Care Team Providers Care Rib Cutter Name Role Phone Pcp, Unknown Primary Care Provider Chao Vicente DO Primary Care Provider [phone] Encounter Details Date Type Department Care Team (Late st Contact Info) Description 10/23/2019 Procedure Pass [address] [place] [address] Social History Tobacco Use Types Packs/Day Years Used Date Smoking Tobacco: Never Assessed Sex and Gender Information Value Date Recorded Sex Assigned at Not on file Legal Sex Male 2:21 PM EST Gender Identity Not on file Sexual Orientation Not on file documented as of this encounter Last Filed Vital Signs Vital Sign Reading Time Taken Comments Blood Pressure - - Pulse - - Temperature - - Respiratory Rate - - Oxygen Saturation - - Inhaled Oxygen Concentration - - Weight 99.8 kg (220 lb) 10/23/2019 6:19 PM EST Height 170.2 cm (5' 7 ) 10/23/2019 6:19 PM EST Body Mass Index 34.46 10/23/2019 6:19 PM EST documented in this encounter Plan of Treatment Not on file documented as of this encounter Visit Diagnoses Not on filedocumented in this encounter Care Teams Rib Cutter Relationship Specialty Start Date End Date Pcp, Unknown PCP - General 10/23/19 10/23/19 Chao Sutherland DO PCP - General Internal Medicine 10/24/19 documented as of this encounter Additional Source Comments The information contained in this document represents components of the legal health record. It is not the complete legal health record.[facility]
--- OUTSIDE RECORDS SUMMARY | 2025-05-23 17:36 | XMS_ITS ---
Author Name [facility] Organization Unknown History of Medication Use Medication Directions Dispensed Refills Start Date End Date Stat us lidocaine (PF) 10 mg/mL (1 %) injection solution Take 4 mL by injection route. 11/28/2024 active Marcaine (PF) 0.5 % (5 mg/mL) injection solution Take 4 mL by injection route. 11/28/2024 active meloxicam 15 mg tablet Take 1 tablet every day by oral route. 11/28/2024 active triamcinolone acetonide 40 mg/mL suspension for injection Take 80 mg by injection route. 11/28/2024 active meloxicam 15 mg tablet active Marcaine (PF) 0.5 % (5 mg/mL) injection solution active triamcinolone acetonide 40 mg/mL suspension for injection active lidocaine (PF) 10 mg/mL (1 %) injection solution active amoxicillin 875 mg-potassium clavulanate 125 mg tablet TAKE 1 TABLET BY MOUTH EVERY 12 HOURS WITH MEALS FOR 10 DAYS active diclofenac sodium 75 mg tablet,delayed release TAKE 1 TABLET BY MOUTH TWICE DAILY WITH MEALS FOR 14 DAYS active tramadol 50 mg tablet TAKE 2 TABLETS BY MOUTH AT BEDTIME FOR 10 DAYS active Problems Problem Status Onset Date Problem Type Date of Resoluti on Source Injury of superior glenoid labrum of shoulder joint active 2025-02-13 ProblemAct [facility] Disorder of shoulder active 2024-11-28 ProblemAct [facility] Encounters Encounter Type Encounter Reason Primary Diagnosis Location Date Ambulatory [facility] 02/14/2025 [facility] 02/12/2025 [facility] 01/30/2025 [facility] 11/29/2024 [facility] 11[facility]28/2024 [facility] 11/28/2024 [facility] 11/28/2024 [facility] 11[facility]21/2024 [facility] 11/21/2024 [facility] 11/21/2024 [facility] 11/13/2024 [facility] 11/13/2024 [facility] 11/13/2024
--- OUTSIDE RECORDS SUMMARY | 2025-05-23 17:36 | XMS_ITS | Clinical Summary ---
Author Organization [facility] Address [address] [place] [address] Phone Care Team Providers Care Hair Worker Name Role Phone Abysupriya Chao Tova BRAGG Primary Care Provider [phone] Social History Tobacco Use Types Packs/Day Years Used Date Smoking Tobacco: Never Assessed Education Answer Date Recorded Are you interested in more education? Not on alice e 12/25/2022 Are you concerned about learning? Not on file 12/25/2022 No 12/25/2022 No 12/25/2022 Digital Access Answer Date Recorded No 01/26/2023 No 01/26/2023 Reliable internet access at home? Not on file 01/26/2023 Device with a working camera? Not on file Sex and Gender Information Value Date Recorded Sex Assigned at Not on file Legal Sex Male 2:21 PM EST Gender Identity Not on file Sexual Orientation Not on file Last Filed Vital Signs Vital Sign Reading Time Taken Comments Blood Pressure - - Pulse - - Temperature - - Respiratory Rate - - Oxygen Saturation - - Inhaled Oxygen Concentration - - Weight 99.8 kg (220 lb) 10/23/2019 6:19 PM EST Height 170.2 cm (5' 7 ) 10/23/2019 6:19 PM EST Body Mass Index 34.46 10/23/2019 6:19 PM EST Plan of Treatment Not on file Medical Devices Not on file Insurance [facility] [address] [place] [address] [place] [address] [place] [address] [place] [address] [place] [address] [place] [address] [place] [address] [place] [address] [employer] Care Teams Hair Worker Relationship Specialty Start Date End Date Chao Sutherland DO [email or web address] PCP - General Internal Medicine 10/24/19 Additional Source Comments The information contained in this document represents components of the legal health record. It is not the complete legal health record.[facility]
== END 2025-05-23 15:07 | disposition home or self-care (01) ==
LOC: HO.HMGCLDS 15:06
PROVIDERS: PCP Internal Medicine; Visit Provider Internal Medicine
DX: Z01.818 Encounter for other preprocedural examination (principal); Z13.1 Encounter for screening for diabetes mellitus
CPT/HCPCS: 36415; 80053; 83036; 85025

== ENCOUNTER 2025-07-24 15:08 | Outpatient (REF) | payer OTHER, SELFPAY ==
--- OUTSIDE RECORDS SUMMARY | 2024-06-30 04:40 | XMS_ITS ---
Author Organization [facility] Address [address] [place] [id number] Care Team Providers Care Electrolysist Name Role Phone Chao Sutherland Primary Care Provider Ziggy Groves [phone] REASON FOR VISIT gerd,heartburn Problems Problem Type SNOMED Code ICD Code Onset Dates Problem Status W/U Status Risk Notes Problem Gastro-esophagea l reflux disease without esophagitis (608993467) Gastro-esophage al reflux disease without esophagitis (K21.9) Active confirmed Encounters Encounter Location Date Provider Diagnosis [facility] [place] [address] [place] [phone] 06/30/2024 Ziggy Lopez Gastro-esophageal reflux disease without [...] * ANTHONY ROBERSONOB: 0 (45 yo M)Acc No.[id number]:06/30/2024 EGD/MAC Patient: JOSE ALFREDO DIAZ Provider: Yeimy Lopez MD :1980 A ge:44 Y S ex:Male Date:06/30/2024 Address:[address] [place] [address] Pcp:Chao Sutherland Subjective: * Chief Complaints: * G erd,heartburn Assessment: * Assessment: 1. G hakeem-esophageal reflux disease without esophagitis - K21.9 (Primary) 2 .?Hiatal hernia - K44.9 3 . H eartburn - R12 Plan: * Procedure Codes: 4 3239 UPPER GI ENDOSCOPY, BIOPSY Billing Information: * Procedure Codes: 17152 UPPER GI ENDOSCOPY, BIOPSY. * The named appointment provid er may or may not be the originator of this progress note, and it is not deemed complete until electronically signed by the appointment provider. Sign off status: Pending * Provider: Yeimy Lopez MD Date: 08/30/2023 Generated for Zacarias malave/Lavelle/Rachaelitting on: 09/23/2024 06:49 PM EST
--- OUTSIDE RECORDS SUMMARY | 2025-07-24 18:49 | XMS_ITS | Clinical Summary ---
Author Organization [facility] Address [address] [place] [address] Phone Care Team Providers Care Cellophane Wrapping Examiner Name Role Phone Abysupriya Chao Tova BRAGG Primary Care Provider [phone] Social History Tobacco Use Types Packs/Day Years [...] file Medical Devices Not on file Insurance [facility] [place] [address] [place] [address] [place] [address] [place] [address] [place] [address] [place] [address] [place] [address] [place] [address] [facility] Address[facility] [id number] [place] [phone] Care Teams Cellophane Wrapping Examiner Relationship Specialty Start Date End Date Chao Sutherland DO [email or web address] PCP - General Internal Medicine 10/24/19 Additional Source Comments The information contained in this document represents components of the legal health record. It is not the complete legal health record.[facility]
--- OUTSIDE RECORDS SUMMARY | 2025-07-24 18:49 | XMS_ITS | Data Portability ---
Author Organization DEXTER Danyel Whiting [facility], [facility] Address [address] [place] [address] Care Team Providers Care Diving Judge Name Role Phone BARBY VAUGHN Primary Care Provider Assessment Encounter Date Assessment Date Assessment LastModified by Organization Details LastModified Time 06/15/2024 06/15/2024 Chief Complaint: Right shoulder pain, partial articular sided tear supraspinatus, SLAP tear HPI: The patient, Martin, a 44-year-old male, presents with right shoulder pain. He reports that the pain began after playing softball during the summer and worsened when he resumed playing football. He describes an inability to throw a ball and difficulty sleeping on the affected side. The pain is primarily located on the backside of the shoulder. He has been using a prescription medication provided by a previous doctor but is unsure of its effectiveness. The patient is in the and has physical training requirements, including push-ups, which he finds challenging due to the shoulder pain. No prior shoulder surgery. Rest makes his pain better while repetitive activity to make his pain worse. I independently reviewed the MRI of the right shoulder dated 05/22/2024. There is a partial articular sided tear of the supraspinatus with superimposed tendinopathy. Infraspinous, teres minor and subscapularis intact. There is undermining of the superior labrum extending posterior superior consistent with a SLAP tear. Biceps tendon intact. Cartilage of the glenohumeral joint intact. Anterior and posterior labrum otherwise intact. No significant acromioclavicular joint arthrosis. He has no significant past medical history and takes anti-inflammatories as needed. He has no allergies to medications. 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 Denies tobacco use. No personal or family history of blood clots. Past medical, surgical, family and social history; Medications, Allergies and 12-point review of systems have been reviewed, updated and charted. Physical Examination: Height and weight as noted in chart. Constitutional: Patient pleasant, well appearing and in NAD. Mental status: Patient is alert and oriented to person, place and time. No short-term memory deficits. Psychiatric: Mood and affect are appropriate. Head: Normocephalic and atraumatic. Exterior inspection of the ears and nose was unremarkable. Hearing grossly intact. Eyes: Sclera are not blue. 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 Full extraocular motion. Neck: Supple with age-appropriate ROM. No tracheal deviation. No obvious JVD. Respiratory: Non-labored breathing. Symmetric excursion. No audible wheezing or crackles. Peripheral Vascular: No peripheral edema. Distal pulses intact. Neurological: Peripheral motor and sensory exam normal and equal bilaterally. Skin: No rashes, lesions, wounds to the upper extremities. Normal turgor and coloration. Musculoskeletal: On examination of the right shoulder, there is no effusion, erythema or ecchymosis. Active shoulder elevation to 170 on the right compared 175 on the left. External rotation to 50 bilaterally. Internal rotation to the thoracolumbar junction. Positive impingement signs on the right. Positive Steele's test. Mild biceps tenderness. No significant acromioclavicular joint tenderness. Positive impingement signs. Procedure: Injection of Steroid and Anesthetic, Subacromial Space All reasonable risks and benefits of injection were discussed. Risks include bleeding, infection, non-relief of symptoms, recurrence of symptoms, allergic type reaction, scarring, fat atrophy, and hyperglycemia. After obtaining consent, the right posterior shoulder was prepped in sterile fashion using an alcohol swab. The skin was anesthetized with ethyl chloride spray, wiped again with alcohol, and an injection of 1cc of Kenalog 40 and 4cc s of Lidocaine 1% was performed using a 22-gauge needle into the subacromial space. The medication flowed freely and the patient tolerated this procedure well. The patient was instructed to avoid strenuous activity following the injection for approximately 24 to 48 hours, and then a gradual return to normal activities is allowed. Impression and Plan: 44-year-old pbxwi-emis-epusrczq male with a two-month history of right shoulder pain that began while playing softball in March 2024 complaining of difficulty throwing and overall history, examination and MRI consistent with a right shoulder partial articular sided tear of the supraspinatus, type II SLAP tear and some acromial impingement/bursiti s. I discussed options and recommended a conservative course. This included a subacromial injection of steroid to the symptomatic shoulder today that the patient tolerated very well. I stressed the importance of activity modification with avoidance of exacerbating activities including heavy lifting overhead or lifting heavy away from the body. I discussed good lifting mechanics. I also recommended a low-dose oral anti-inflammatory such as ibuprofen [id number]-[id number] and/or Tylenol as needed. I referred the patient to physical therapy with impingement and periscapular strengthening protocol. I will plan to see him back in 2 months for reevaluation. If he continues to be symptomatic despite these conservative measures, we will discuss surgical options. All questions and concerns were addressed. Today's visit involved examining the patient, reviewing the history, reviewing the radiographic studies, counseling the patient regarding treatment options, and the administrative tasks including placing orders, preparing patient information and home handouts and preparing the visit note. This note was generated with [facility] speech recognition scooper dictation software. Please excuse any errors that may have been overlooked during review of this note. Sometimes, these errors may affect the content or meaning of a given sentence. Please call for corrections. [email or web address] Not available 06/15/2024 13:04:20 09/14/2024 09/14/2024 Chief Complaint: Right shoulder pain, partial articular sided tear supraspinatus, SLAP tear HPI: The patient is a 44-year-old male who presents with right shoulder pain. He reports that the pain began after playing softball during the summer and worsened when he resumed playing football. He describes an inability to throw a ball and difficulty sleeping on the affected side. The pain is primarily located on the backside of the shoulder. He has been using a prescription medication provided by a previous doctor but is unsure of its effectiveness. The patient is in the and has physical training requirements, including push-ups, which he finds challenging due to the shoulder pain. No prior shoulder surgery. Rest makes his pain better while repetitive activity to make his pain worse. He has tried rest, activity modification, oral anti-inflammatories , physical therapy and cortisone injection treatment with continued symptoms. I independently reviewed the MRI of the right shoulder dated 05/22/2024. There is a partial articular sided tear of the supraspinatus with superimposed tendinopathy. Infraspinous, teres minor and subscapularis intact. There is undermining of the superior labrum extending posterior superior consistent with a SLAP tear. Biceps tendon intact. Cartilage of the glenohumeral joint intact. Anterior and posterior labrum otherwise intact. No significant acromioclavicular joint arthrosis. He has no significant past medical history and takes anti-inflammatories as needed. He has no allergies to medications. 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 Denies tobacco use. No personal or family history of blood clots. Past medical, surgical, family and social history; Medications, Allergies and 12-point review of systems have been reviewed, updated and charted. Physical Examination: Height and weight as noted in chart. Constitutional: Patient pleasant, well appearing and in NAD. Mental status: Patient is alert and oriented to person, place and time. No short-term memory deficits. Psychiatric: Mood and affect are appropriate. Head: Normocephalic and atraumatic. Exterior inspection of the ears and nose was unremarkable. Hearing grossly intact. Eyes: Sclera are not blue. 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 Full extraocular motion. Neck: Supple with age-appropriate ROM. No tracheal deviation. No obvious JVD. Respiratory: Non-labored breathing. Symmetric excursion. No audible wheezing or crackles. Skin: No rashes, lesions, wounds to the upper extremities. Normal turgor and coloration. Musculoskeletal: On examination of the right shoulder, there is no effusion, erythema or ecchymosis. Active shoulder elevation to 170 on the right compared 175 on the left. External rotation to 50 bilaterally. Internal rotation to the thoracolumbar junction. Positive impingement signs on the right. Positive Steele's test. Mild biceps tenderness. No significant acromioclavicular joint tenderness. Positive impingement signs. Impression and Plan: 44-year-old ukaii-oykq-ckfrzyjk male with a two-month history of right shoulder pain that began while playing softball in March 2024 complaining of difficulty throwing and overall history, examination and MRI consistent with a right shoulder partial articular sided tear of the supraspinatus, type II SLAP tear and subacromial impingement/bursiti s. I discussed options and recommended a conservative course. I stressed the importance of activity modification with avoidance of exacerbating activities including heavy lifting overhead or lifting heavy away from the body. I discussed good lifting mechanics. I also recommended a low-dose oral anti-inflammatory such as ibuprofen [id number]-iiz-[id number] and/or Tylenol as needed. Should symptoms persist, surgical intervention may be necessary. All questions and concerns were addressed. Today's visit involved examining the patient, reviewing the history, reviewing the radiographic studies, counseling the patient regarding treatment options, and the administrative tasks including placing orders, preparing patient information and home handouts and preparing the visit note. This note was generated with [facility] speech recognition scooper dictation software. Please excuse any errors that may have been overlooked during review of this note. Sometimes, these errors may affect the content or meaning of a given sentence. Please call for corrections. [email or web address] Not available 09/14/2024 16:32:54 Plan of Treatment Reminders Order Date Submit Date Provider Last Modified By Organization Details Last Modified Time Details Appointments None recorded. Lab None recorded. Referral physical therapist referral - PHYSICAL THERAPY REFERRAL ICD-10: M75.41(righ t) 1. Rotator cuff strengtheni ng program. 2. Scapular stabilizati on program including strengtheni ng, mobilizatio n, and propriocept ion. 3. Soft tissue modalities as indicated. 4. Home exercise program. 5. Therapeutic exercises: all exercises prn per therapist. 6. Manual therapy: all manual therapy prn per therapist. Allow 2-3 visits a week for 6-8 weeks. Completed by: 2023 024 [email or web address] Not available 12:26:30 Procedures None recorded. Surgeries None recorded. Imaging None recorded. Medication Orders None recorded. Patient TargetsNo targets recorded. Patient InstructionsNo instructions recorded. Reason for Referral Physical Therapist Referral for Anterior to posterior tear of superior glenoid labrum of right shoulder PHYSICAL THERAPY REFERRAL ICD-10: M75.41(right) 1. Rotator cuff strengthening program.2. Scapular stabilization program including strengthening, mobilization, and proprioception.3. Soft tissue modalities as indicated.4. Home exercise program.5. Therapeutic exercises: all exercises prn per therapist.6. Manual therapy: all manual therapy prn per therapist.Allow 2-3 visits a week for 6-8 weeks.Completed by: Referring Physician: Tj Villarreal, Orthopedic Surgery, [id number] Encounter Date: 06/15/2024 Results Created Date Observation Date Name Description Value Unit Range Abnormal Flag Note LastModifiedBy Organization Detail LastModifiedTime 06/16/20 24 05/22/2024 MRI, shoul radha, w/o contr ast No observ ation record ed. BARCODE Not Available 2023 15:18:25 Result Notes None recorded. Procedures Surgical History Date Name Laterality Status Provider Name and Address Organization Details Recorded Time Sports Shoulder completed Tj Villarreal MD [address] [facility], [place], [address], [facility] 06/15/2024 13:04:58 Imaging Results None recorded. Procedure Notes None recorded. Medical Equipment None Reported. Allergies No known drug allergies Medications Name Sig Start Date Stop Date Status Note LastModified by Organization Details LastModified Time tramadol 50 mg tablet TAKE 2 TABLETS BY MOUTH AT BEDTIME FOR 10 DAYS active Not Available Not Available No t Available diclofenac sodium 75 mg tablet,delaye d release TAKE 1 TABLET BY MOUTH TWICE DAILY WITH MEALS FOR 14 DAYS active Not Available Not Available No t Available amoxicillin 875 mg-potassium clavulanate 125 mg tablet TAKE 1 TABLET BY MOUTH EVERY 12 HOURS WITH MEALS FOR 10 DAYS active Not Available Not Available No t Available Vitals Date Recorded Body height Body mass index (BMI) Body weight Provider Name and Address Organization Details Last Updated DateTime 09/14/2024 170.18 cm 35.2 kg/m2 255122.28 g RADHA GONSALEZ [facility] 09/14/2024 15:44:12 Date Recorded Body height Body mass index (BMI) Body weight Provider Name and Address Organization Details Last Updated DateTime 06/15/2024 170.18 cm 35.2 kg/m2 171529.28 g RADHA GONSALEZ [facility] 06/15/2024 14:28:10 Social History None recorded. Functional Status None recorded. Mental Status None recorded. Family History Nothing Reported. Medical History No medical history recorded. Past Encounters Encounter ID Performer Location Encounter Start Date Encounter Closed Date Diagnosis/Indication Diagnosis SNOMED-CT Code Diagnosis ICD10 Code Diagnosis IMO Codes Diagnosis Note [id number] Tj Villarreal MD [facility] 2nd floor [address] [place] [address] 06/15/2024 10:26:17 07/10/2024 12:25:33 Anterior to posterior tear of superior glenoid labrum of right shoulder 8049016593 3328929 S43.431A [id number] Disorder of shoulder 118 754532 M25.811 [id number] [facility] [address] [address] [place] [address] 09/14/2024 15:36:12 09/25/2024 12:27:25 Disorder of shoulder 857373419 M25.811 31443976 Injury of superior glenoid labrum of shoulder joint 863901035 S43.431D 453892 Traumatic partial rupture of rotator cuff of right shoulder 3328030846 25243394 S46.011D [id number] Health Concerns Section Related Observation LastModified by Organization Detai ls LastModified Time None Recorded Concern Status LastModified by Organization Details LastModified Time None Recorded Advance Directives Directive None Recorded Payers Insurance Date Sequence Insurance Name Policy Number Policy Funes Covered Member ID Funes Member ID Guarantor Name 09/27/2024 1 [facility] Kenny Olmedo [id number] Kenny Olmedo 09/27/2024 1 [facility] [employer] () Kenny Olmedo [id number] Kenny Olmedo
--- OUTSIDE RECORDS SUMMARY | 2025-07-24 18:49 | XMS_ITS | Continuity of Care Document ---
Author Organization [facility], [facility] Address [address] [place] [address] [place] [address] Assessment No assessment recorded. Plan of Treatment Reminders Order Date Submit Date Provider Last Modified By Organization Details Last Modified Time Details Appointments None record ed. Lab None record ed. Referral None record ed. Procedures None record ed. Surgeries None record ed. Imaging None record ed. Medication Orders None record ed. Patient TargetsNo targets recorded. Patient InstructionsNo instructions recorded. Reason for Referral None Reported. Results Created Date Observation Date Name Description Value Unit Range Abnormal Flag Note LastModifiedBy Organization Detail LastModifiedTime Result Notes None recorded. Problems Name Problem SNOMED Code Status Onset Date Resolution Date Notes Provider Name and Address Organization Details Recorded Time Pain of left testicle 549400268341 22197 Active 2021 Chao Sutherland DO [address] [place] [address], [phone], [facility] 2 12:09:34 Fatigue 39461530 Active 2021 Chao Sutherland DO [address] [place] [address], [phone], [facility] 2 12:11:04 Low back pain 956082604 Active 2021 Chao Sutherland DO [address] [place] [address], [phone], [facility] 2 10:09:04 Herpes labialis 7163262 Active 2021 TATIANA JIMENEZ [address] [place], [address], [facility] 2 16:00:32 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 Chao Sutherland, DO [address] [place] [address], [address], [facility] 2 22:31:13 Lumbago with sciatica 844465218 Active 2021 Chao Sutherland, DO [address] [place] [address], [address], [facility] 2 15:09:59 Lumbago with sciatica 080881780 Active 2021 Chao Sutherland, DO [address] [place] [address], [phone], [facility] 2 15:10:15 Vitamin D deficienc y 20054980 Active 2022 Chao Sutherland DO [address] [place] [address], [address], [facility] 3 11:12:06 Esophagea l dysphagia 03819473 Active 2023 Chao Sutherland DO [address] [place] [address], [address], [facility] 4 12:26:36 Esophagea l dysmotili ty 349635054 Active 2023 TATIANA JIMENEZ [address] [place] [address], [address], [facility] 4 08:45:51 Injury of tendon of the rotator cuff of shoulder 516356312 Active 2023 Chao Sutherland DO [address] [place] [address], [address], [facility] 4 22:48:12 Injury of tendon of the rotator cuff of shoulder 973240136 Active 2023 Chao Sutherland DO [address] [place] [address], [address], [facility] 5 09:42:27 Partial thickness rotator cuff tear 870469182 Active 2023 Chao Sutherland DO [address] [place], [address], [facility] 4 22:34:23 Rupture of rotator cuff of right shoulder 368121063154 25551 Active 2023 Chao Sutherland DO [address] [place], [address], [facility] 4 15:57:54 Problem Notes None recorded. Procedures Surgical History Date Name Laterality Status Provider Name and Address Organization Details Recorded Time 020 Corticosteroid Injection completed Chao uStherland DO [address] [place], [address], [facility] 11/08/2019 11:35:48 Appendectomy completed Kamini [facility] 10/23/2019 11:51:58 Vasectomy completed Kamini Aguirre [facility] 10/23/2019 11:52:08 Imaging Results None recorded. Procedure Notes None recorded. Medical Equipment None Reported. Allergies No known drug allergies Medications Name Sig Start Date Stop Date Status Note LastModified by Organization Details LastModified Time azithromyci n 250 mg tablet TAKE 2 TABLETS (500 MG) BY ORAL ROUTE ONCE DAILY FOR 1 DAY THEN 1 TABLET (250 MG) BY ORAL ROUTE ONCE DAILY FOR 4 DAYS 05/12 completed Not Available Not Available Not Available valacyclovi r 1 gram tablet TAKE 1 TABLET BY MOUTH EVERY 12 HOURS FOR 7 DAYS 05/23 completed Not Available Not Available Not Available clarithromy yoana 500 mg tablet TAKE 1 TABLET BY MOUTH EVERY 12 HOURS FOR 14 DAYS 12/02 completed Not Available Not Available Not Available hydrocodone 5 mg-acetamin ophen 325 mg tablet TAKE 1 TABLET BY MOUTH EVERY 8 HOURS FOR 3 DAYS NEEDED FOR SEVERE PAIN 03/25 completed Not Available Not Available Not Available meloxicam 15 mg tablet TAKE 1 TABLET BY MOUTH EVERY DAY 05/23 completed Not Available Not Available Not Available omeprazole 40 mg capsule,del ayed release TAKE 1 CAPSULE BY MOUTH EVERY DAY FOR 14 DAYS 12/02 completed Not Available Not Available Not Available tramadol 50 mg tablet TAKE 2 TABLETS BY MOUTH AT BEDTIME FOR 10 DAYS 05/23 completed Not Available Not Available Not Available amoxicillin 500 mg tablet TAKE 1 TABLET BY MOUTH EVERY 8 HOURS FOR 14 DAYS 12/02 completed Not Available Not Available Not Available meloxicam 7.5 mg tablet TAKE 1 TABLET BY MOUTH TWICE DAILY 12/02 completed Not Available Not Available Not Available diclofenac sodium 75 mg tablet,kate yed release TAKE 1 TABLET BY MOUTH TWICE DAILY WITH MEALS FOR 14 DAYS 05/23 completed Not Available Not Available Not Available mupirocin 2 % topical ointment APPLY SMALL AMOUNT TOPICALLY TO THE AFFECTED AREA THREE TIMES DAILY FOR 5 DAYS 12/02 completed Not Available Not Available Not Available naproxen 500 mg tablet TAKE 1 TABLET BY MOUTH TWICE DAILY FOR 10 DAYS NEEDED FOR PAIN 03/25 completed Not Available Not Available Not Available amoxicillin 875 mg-potassiu m clavulanate 125 mg tablet TAKE 1 TABLET BY MOUTH EVERY 12 HOURS WITH MEALS FOR 10 DAYS 05/23 completed Not Available Not Available Not Available testosteron e 1 % (50 mg/5 gram) transdermal gel packet Apply by transderm al route for 30 days. 05/23 completed Not Available Not Available Not Available cyclobenzap rine 5 mg tablet TAKE 1 TABLET BY MOUTH EVERY 8 HOURS NEEDED FOR PAIN 03/25 completed Not Available Not Available Not Available Vitals Date Recorded Body weight Oxygen saturation Heart rate Systolic And Diastolic Provider Name and Address Organization Details Last Updated DateTime 05/23/2025 083717.48 g 97 % 87 /min 118/72 mm[Hg] JEROME WEEKS [facility] 05/23/2025 09:26:50 Social History Question Answer Notes LastModified by Class[employer] Details LastModified Time Tobacco Smoking Status Never Smoker Kamini carbajal [facility] 10/23/2019 11:47:58 What Is Your Level Of Caffeine Consumption? Moderate 2 Cups Coffee Per Day Information not available 10/23/2019 What Was The Date Of Your Most Recent Tobacco Screening? 05/23/2025 [email or web address] Information not available 05/23/2025 Sex: Unknown Functional Status Question Answer Note LastModified by [employer] Details LastModified Time What is your level of alcohol consumption? Occasional 2-3 beers per week Information not available 10/23/2019 What is your exercise level? Occasional Information not available 10/23/2019 Mental Status None recorded. Family History Relationship Description Onset Age of this Age Resolved Age Notes LastModified by Organization Details LastModified Time Maternal Grandfather Malignant neoplastic disease [email or web address] Not available 2019 11:52:47 Medical History No medical history recorded. Immunizations Vaccine Type Date Status Note Provider Nam e and Address Organization Details Recorded Time COVID-19, mRNA, LNP-S, PF, 30 mcg/0.3 mL dose 1 completed Jessica carbajal [facility] 05/12/2021 09:39:34 COVID-19, mRNA, LNP-S, PF, 30 mcg/0.3 mL dose 1 completed Jessica carbajal [facility] 05/12/2021 09:39:40 Influenza, split virus, quadrivalent, preservative 1 completed Chao Sutherland DO [address] [place] [address], [address], [facility] 12/02/2021 11:55:50 Influenza, split virus, quadrivalent, preservative 9 completed Kamini cabrajal [facility] 10/23/2019 11:47:48 Past Encounters Encounter ID Performer Location Encounter Start Date Encounter Closed Date Diagnosis/Indication Diagnosis SNOMED-CT Code Diagnosis ICD10 Code Diagnosis IMO Codes Diagnosis Note [id number] Chao Sutherland DO [facility] [address] [facility],[place] [address] 05/23/2025 09:20:40 05/23/2025 09:46:37 Pre-surgery evaluation 332542818 Z01.818 Per the 2017 ACC cardiac risk stratifica tion (revised) this patient poses an extremely low risk for the proposed procedure and is cleared at this time. He is on no medication s . Injury of tendon of the rotator cuff of shoulder 059651436 S46.001D noted will have surgical repair this wednesday Health Concerns Section Related Observation LastModified by Organization Detai ls LastModified Time None Recorded Concern Status LastModified by Organization Details LastModified Time None Recorded Payers Encounter Date Sequence Insurance Name Policy Number Policy Funes Covered Member ID Funes Member ID Guarantor Name 05/23/2025 1 [facility] () Kennycarlos Couchiago [id number] Kenny Olmedo Notes Date Note Type Note Provider Name a nd Address Organization Details Recorded Time 5 text/html Pre-OpReported by PatientHPIFor risk factors, patient reportsno cognitive impairment,no functional impairment,no malnutrition,no frailty,able to climb a flight of stairs (exercise capacity>4 mets),no obstructive sleep apnea,non-smoker,no alcohol misuse,no illicit drug use,no chronic cardiopulmonary condition, andnot obese. For anesthesia hx, patient reportsno hx of anesthesia complications,no allergy to anesthetic agents, andno family history of anesthesia complications. For functional ability, patient reportsable to walk up stairs,able to perform heavy work around the house,no difficulty walking up hills, andable to walk 4 mph.ROS as noted in the HPI Pt seen for pre op evall no issues other than the right shoulde rdenies cp no sob no other constitutional signs Chao Sutherland DO [address] [facility], [place], [address], [facility] 05/23/2025 09:42:40
--- OUTSIDE RECORDS SUMMARY | 2025-07-24 18:49 | XMS_ITS | Continuity of Care Document ---
Author Organization [place] [facility] Magda Brewer [facility] [place] Address [address] [facility] [address] [place] [address] Care Team Providers Care Wireworker Supervisor Name Role Phone BARBY VAUGHN Primary Care Provider BARBY VAUGHN Referring Provider BARBY VAUGHN Primary Care Provider [phone] Assessment Encounter Date Assessment Date Assessment LastModified by Organization Details LastModified Time 06/05/2025 06/05/2025 IMPRESSION: status post RIGHT Open Biceps Tenodesis (Date of surgery 05/28/2025, at [facility] PLAN: Martin is doing well. At this point he may begin physical therapy next week. Will see him back in 4 to 5 weeks for repeat clinical evaluation. Postoperative Care Summary For Open Biceps Tenodsis The patient will follow the following post-operative rehabilitation plan: 1. No weightbearing to the RIGHT upper extremity for 6 weeks, sling with abduction pillow for 2 weeks. Sling should remain on and secured at all times for the first 2 weeks post-op except for hygiene, therapy, and home exercises. 2. Patient will take aspirin 325 mg twice daily for DVT prophylaxis for 1 month. 3. Ok for pendulum's and elbow/wrist/hand/ finger range of motion exercises immediately post-op. Okay for scapular sets and scapular mobility exercises 4. Supervised and structured physical therapy will begin at 2 weeks post-op. Physical therapy protocol and prescription provided. 5. Will initiate gentle AAROM and progress to AROM starting at 2 weeks then progress from there. Light isometric shoulder exercises (excluding biceps) 6. Early strengthening will begin at week 6 and gradually progress. 7. Interval sport program will begin at week 10 and beyond. 8. Ok to return to light duty work once off of all pain medications if can perform job without the use of the operative extremity. 9. Follow up schedule: Patient will be seen by me in clinic at day 10-14 post-op , 6 weeks, and 3 months post-op . Further appointments and imaging to be determined based on progress with therapies and sooner if issues arise. Not available 06/05/2025 12:01:11 Plan of Treatment Reminders Order Date Submit Date Provider Last Modified By Organization Details Last Modified Time Details Appointments FOLLOW UP 2025 01:30P Uche Ricci MD Not available Not available Not available Lab None recorded. Referral physical therapist referral - Therapy begins postop week 2. 2- 3 times a week for 12 weeks Post-Oper ative Physical Therapy Protocol: Open Biceps Tenodesis (Isolated ) Procedure : Open biceps tenodesis Precautio ns: No rotator cuff or labral repair Goal: Protect tenodesis site, restore motion, then strengthe n safely Phase I Protectio n & Passive Motion (Weeks 0 2 ) Goals: Protect surgical site Decrease pain and inflammat ion Maintain elbow, wrist, and hand motion Sling: For comfort only, typically 1 2 weeks Discontin ue once pain allows and patient can control arm Activity: Immediate AROM/PROM elbow, wrist, and hand Gentle pendulums and passive shoulder elevation /external rotation as tolerated Avoid resisted elbow flexion or supinatio n No lifting or carrying with operative arm Phase II Early Active Motion (Weeks 2 6 ) Goals: Restore full shoulder and elbow ROM Begin light functiona l use of arm without resistanc e Activity: Progress to full shoulder AAROM AROM all planes Continue elbow/wri st/hand motion Light isometric shoulder exercises (excludin g biceps) Scapular stabiliza tion exercises Restricti ons: No resisted biceps curls or supinatio n until 6 weeks post-op No lifting > 1 2 lb Phase III Strengthe diamond (Weeks 6 1 2) Goals: Initiate and progress strengthe diamond safely Restore endurance and control Activity: Begin gentle resisted elbow flexion and supinatio n Progressi ve resistanc e training for shoulder, elbow, and scapula Functiona l closed-ch ain and proprioce ptive work Advance to sport- or work-spec ific drills as tolerated by 10 1 2 weeks Criteria for Return to Full Activity Pain-free full ROM Strength 90% of contralat eral side Surgeon clearance for unrestric dung activity 2024 025 [email or web address] Not available 06/05/2025 11:58:29 Procedures None recorded. Surgeries None recorded. Imaging None recorded. Medication Orders None recorded. Patient TargetsNo targets recorded. Patient InstructionsNo instructions recorded. Reason for Referral Physical Therapist Referral for Postoperative visit Therapy begins postop week 2.2- 3 times a week for 12 weeksPost-Operative Physical Therapy Protocol: Open Biceps Tenodesis (Isolated)Procedure: Open biceps tenodesisPrecautions: No rotator cuff or labral repairGoal: Protect tenodesis site, restore motion, then strengthen safelyPhase I Protection & Passive Motion (Weeks 0 2 )Goals:Protect surgical siteDecrease pain and inflammationMaintain elbow, wrist, and hand motionSling: For comfort only, typically 1 2 weeksDiscontinue once pain allows and patient can control armActivity:Immediate AROM/PROM elbow, wrist, and handGentle pendulums and passive shoulder elevation/external rotation as toleratedAvoid resisted elbow flexion or supinationNo lifting or carrying with operative armPhase II Early Active Motion (Weeks 2 6 )Goals:Restore full shoulder and elbow ROMBegin light functional use of arm without resistanceActivity:Progress to full shoulder AAROM AROM all planesContinue elbow/wrist/hand motionLight isometric shoulder exercises (excluding biceps)Scapular stabilization exercisesRestrictions:No resisted biceps curls or supination until 6 weeks post-opNo lifting > 1 2 lbPhase III Strengthening (Weeks 6 1 2)Goals:Initiate and progress strengthening safelyRestore endurance and controlActivity:Begin gentle resisted elbow flexion and supinationProgressive resistance training for shoulder, elbow, and scapulaFunctional closed-chain and proprioceptive workAdvance to sport- or work-specific drills as tolerated by 10 1 2 weeksCriteria for Return to Full ActivityPain-free full ROMStrength 90% of contralateral sideSurgeon clearance for unrestricted activity Referring Physician: Charlie Ricci, Orthopedic Surgery, Encounter Date: 06/05/2025 Problems Name Problem SNOMED Code Status Onset Date Resolution Date Notes Provider Name and Address Organization Details Recorded Time Disorder of shoulder 940285017 Active 025 Charlie Ricci MD [address], [place], [address] , [place] [facility] 5 10:06:55 Disorder of shoulder 198016204 Active 025 Charlie Ricci MD [address], [place], [address] , [place] [facility], [facility] 5 10:07:02 Injury of superior glenoid labrum of shoulder joint 625669597 Active 025 Charlie Ricci MD [address], [place], [address] , [place] [facility], [facility] 5 10:07:30 Injury of superior glenoid labrum of shoulder joint 935821249 Active 025 Charlie Ricci MD [address], [place], [address] , [place] [facility], [facility] 5 10:38:06 Problem Notes None recorded. Procedures Surgical History Date Name Laterality Status Provider Name and Address Organization Details Recorded Time 05/28/20 25 SHOULDER ARTHROSCOPY WITH SLAP LESION REPAIR (SURG) completed Kely López [facility] 05/29/2025 09:27:46 11/29/19 25 AJR Subacromial Inj completed Charlie Ricci MD [address], [place], [address], [facility], [facility] 11/28/2024 10:08:17 Imaging Results None recorded. Procedure Notes None recorded. Medical Equipment None Reported. Allergies No known drug allergies Medications Name Sig Start Date Stop Date Status Note LastModified by Organization Details LastModified Time Colace 100 mg capsule 1 tablet two times per day (while taking tramadol) *Only take if needed for constipat ion active Not Available Not Available No t Available senna 8.6 mg tablet TAKE 2 TABLET BY MOUTH AT BEDTIME DAILY .NO BOWEL MOVEMENT BY DAY 3 INCREASE 2 TABLETS TWICE DAILY MAX OF 8 TABLET A DAY NEEDED FOR CONSTIPAT ION active Not Available Not Available No t Available meloxicam 15 mg tablet TAKE 1 TABLET BY MOUTH EVERY DAY active Not Available Not Available No t Available omeprazole 40 mg capsule,del ayed release TAKE 1 CAPSULE BY MOUTH EVERY MORNING FOR 7 DAYS. START THE MORNING AFTER SURGERY. UNTIL ALL TAKEN ENTIRE PRESCRIPT ION active Not Available Not Available No t Available tramadol 50 mg tablet 1 pills every 6 hours as needed. *Start the night of surgery 2024 active Not Available Not Available Not Avai lable acetaminoph en ER 650 mg tablet,exte nded release 1 tablet (650 mg) by mouth every 6 hours for 3 days, then as needed.*S tart the night of surgery 2024 active Not Available Not Available Not Avai lable ketorolac 10 mg tablet Take by oral route for 5 days. 2024 active Not Available Not Available Not Avai lable metoclopram isai 5 mg tablet TAKE 1 TABLET BY MOUTH EVERY 8 HOURS NEEDED FOR NAUSEA active Not Available Not Available No t Available triamcinolo ne acetonide 40 mg/mL suspension for injection Take 80 mg by injection route. 02/13 completed Not Available Not Available Not Available gabapentin 300 mg capsule TABLET 1 CAPSULE BY MOUTH THREE TIMES DAILY FOR 3 DAYS. BE SURE TO START THE NIGHT OF THE PROCEDURE FINISH ENTIRE PRESCRIPT ION 2024 active Not Available Not Available Not Avai lable diclofenac sodium 75 mg tablet,kate yed release TAKE 1 TABLET BY MOUTH TWICE DAILY WITH MEALS FOR 14 DAYS 11/28 completed Not Available Not Available Not Available amoxicillin 875 mg-potassiu m clavulanate 125 mg tablet TAKE 1 TABLET BY MOUTH EVERY 12 HOURS WITH MEALS FOR 10 DAYS 02/13 completed Not Available Not Available Not Available Marcaine (PF) 0.5 % (5 mg/mL) injection solution Take 4 mL by injection route. 02/13 completed Not Available Not Available Not Available senna 8.6 mg capsule 2 pills at bedtime, if no bowel movement by day 3, increase by 2 pills two times per day, up to a maximum of 8 pills per day* Only take if needed for constipat ion 2024 active Not Available Not Available Not Avai lable lidocaine (PF) 10 mg/mL (1 %) injection solution Take 4 mL by injection route. 02/13 completed Not Available Not Available Not Available Vitals None Recorded Social History None recorded. Functional Status Question Answer Note LastModified by Organizat ion Details LastModified Time Do you use any illicit or recreational drugs? No [email or web address] Information not available 11/28/2024 Do you or have you ever used any other forms of tobacco or nicotine? No [email or web address] Information not available 11/28/2024 What is your level of alcohol consumption? None [email or web address] Information not available 11/28/2024 Mental Status None recorded. Family History Nothing Reported. Medical History No medical history recorded. Past Encounters Encounter ID Performer Location Encounter Start Date Encounter Closed Date Diagnosis/Indication Diagnosis SNOMED-CT Code Diagnosis ICD10 Code Diagnosis IMO Codes Diagnosis Note [id number] MD GHAZAL Fleming [address] [address] 06/05/2025 11:06:35 06/05/2025 11:58:29 Postoperative visit 927188347 Z48.89 [id number] Right shoulder open biceps tenodesis distal clavicle excision SA D date of surgery 05/28/2025 Health Concerns Section Related Observation LastModified by Organization Detai ls LastModified Time None Recorded Concern Status LastModified by Organization Details LastModified Time None Recorded Payers Encounter Date Sequence Insurance Name Policy Number Policy Funes Covered Member ID Funes Member ID Guarantor Name 06/05/2025 1 [facility] () Kenny Olmedo [id number] Kenny Olmedo Notes Date Note Type Note Provider Name and Address Organization Details Recorded Time 06/05/2025 text/html ROS as noted in the HPI Patient presents for their first postoperative visit. They are status post the following procedure 1) Right shoulder open biceps tenodesis, subacromial decompression distal clavicle excision. (05/28/2025 at [facility]) Charlie Ricci MD [address] [address], [place], [address], [place] [facility], [facility] 06/05/2025 12:01:20
--- OUTSIDE RECORDS SUMMARY | 2025-07-24 18:49 | XMS_ITS | Encounter Summary ---
Author Organization [facility] Address [address] [place] [address] Phone Care Team Providers Care Fructose Loader Name Role Phone Pcp, Unknown Primary Care Provider Chao Vicente DO Primary Care Provider [phone] Encounter Details Date Type Department Care Team (Late st Contact Info) Description 10/23/2019 Procedure Pass [address] [place] [address] Social History Tobacco Use Types Packs/Day Years [...] on filedocumented in this encounter Care Teams Fructose Loader Relationship Specialty Start Date End Date Pcp, Unknown PCP - General 10/23/19 10/23/19 Chao Sutherland DO PCP - General Internal Medicine 10/24/19 documented as of this encounter Additional Source Comments The information contained in this document represents components of the legal health record. It is not the complete legal health record[facility]
--- OUTSIDE RECORDS SUMMARY | 2025-07-24 18:49 | XMS_ITS | Clinical Summary ---
Author Organization [facility] Address [address] [place] [phone] Phone Care Team Providers Care Special Education Tutor Name Role Phone Unavailable Primary Care Provider Unavailabl e Allergies No known active allergies Medications cetirizine (ZyrTEC) 10 mg tabletIndication s:allergic rhinitis,seasona l allergic rhinitis Take 1 tablet (10 mg total) by mouth 1 (one) time each day. Active Encounters Date Type Department Care Team Description 05/28/2025 11:12 AM EDT Anesthesia Event [facility] OR [address] [place] [phone] Joao Stacy DO Gordon, Alanna, DO 05/28/2025 9:30 AM EDT - 05/28/2025 1:00 PM EDT Surgery [facility] OR [address] [place] [phone] Charlie Ricci MD RIGHT SHOULDER DIAGNOSTIC ARTHROSCOPY [98953 (CPT )] 05/28/2025 7:35 AM EDT - 05/28/2025 4:05 PM EDT Hospital Encounter [facility] OR [address] [place] [phone] Charlie Ricci MD Discharge Disposition: Home or Self Care from Last 3 Months Surgical History Surgery Date Site/Laterality Comments APPENDECTOMY [...] on file Sexual Orientation Not on file Obstetrics History Last Filed Vital Signs Vital Sign Reading Time Taken Comments Blood Pressure 117/74 05/28/2025 3:02 PM EDT Pulse 90 05/28/2025 3:02 PM EDT Temperature 36.4 C (97.5 F) 05/28/2025 2:45 PM EDT Respiratory Rate 16 05/28/2025 3:02 PM EDT Oxygen Saturation 92% 05/28/2025 3:02 PM EDT Inhaled Oxygen Concentration - - Weight 99.8 kg (220 lb) 05/23/2025 2:00 PM EDT Height 170.2 cm (5' 7 ) 05/23/2025 2:00 PM EDT Body Mass Index 34.46 05/23/2025 2:00 PM EDT Plan of Treatment Health Maintenance Due Date Last Done Comments Colorectal Cancer Screening: Colonoscopy 1980 HPV Vaccines (1 - 3-dose SCDM series) 02/26/2007 IPV Vaccines (2 of 3 - Adult catch-up series) 04/26/2008 03/29/2008 Depression Screening 08/30/2024 COVID-19 Vaccine (3 - season) 2025 04/08/2021, 03/18/2021 Influenza Vaccine (#1) 2025 , 07/05/2022, 06/05/2021, Additional history exists Cholesterol Screening (Lipid Panel) 05/03/2025 HIV Screening 05/03/2025 Hepatitis C Screening 05/03/2025 Social Influencers of Health Screening 05/03/2025 DTaP,Tdap,and Td Vaccines (3 - Td or Tdap) 10/30/2028 10/30/2018, 03/29/2008 RSV Immunization Adult Patients (1 - 1-dose 75+ series) 02/26/2055 Meningococcal ACWY Vaccine Aged Out 03/29/2008 N o longer eligible based on patient's age to complete this topic Hepatitis A Vaccines Aged Out 10/06/2008, 05/08/2008, 04/04/2008 No longer eligible based on patient's age to complete this topic Hepatitis B Vaccines Completed 10/06/2008, 05/08/2008, 04/04/2008 HIB Vaccines Aged Out No longer eligi ble based on patient's age to complete this topic MMR Vaccines Aged Out No longer eligi ble based on patient's age to complete this topic Meningococcal B Vaccine Aged Out No l onger eligible based on patient's age to complete this topic Pneumococcal Vaccine: Pediatrics (0 to 5 Years) and At-Risk Patients (6 to 49 Years) Aged Out No longer eligible based on patient's age to complete this topic RSV Immunization Patients Under 20 months Aged Out No longer eligible based on patient's age to complete this topic Varicella Vaccines Aged Out No longer eligible based on patient's age to complete this topic Medical Devices Implanted Type Area Laminating Press Operator Device Identifier Shelf Expiration Date Model / Serial / Lot [employer] Implant Bicep Fibertak Set - Sna - [id number] Implanted:Qty : 1 on 05/28/2025 by Charlie Ricci MD at [facility] Internal and External Fixation Right: Shoulder [employer] 12/27/2025 [id number] / NA / [id number] Procedures Procedure Name Priority Date/Time Associated Diagnosis Comments OXYGEN THERAPY, ADULT Routine 05/28/2025 1:29 PM EDT TH AN ENDOTRACHEAL(NO CHARGE) Routine 05/28/2025 11:54 AM EDT MN TENODESIS LONG TENDON OF BICEPS 05/28/2025 11:00 AM EDT Superior glenoid labrum lesion of right shoulder, initial encounter Case Notes BEACH CHAIR, SATISH MELOION, [employer] ANCHORSArthrex rep confirmed 05/25 for case on 05/28- MN ARTHROSCOPY SHOULDER SURGICAL BICEPS TENODESIS 05/28/2025 11:00 AM EDT Superior glenoid labrum lesion of right shoulder, initial encounter Case Notes BEACH CHAIR, MEGHNAER SCORPION, ARTHREX ANCHORSArthrex rep confirmed 05/25 for case on 05/28- LL MN SURGICAL ARTHROSCOPY SHOULDER EXTENSIVE DEBRIDEMENT 3+ STRUCTURES 05/28/2025 11:00 AM EDT Superior glenoid labrum lesion of right shoulder, initial encounter Case Notes BEACH CHAIR, LORIE SCORPION, [employer]X ANCHORSArthrex rep confirmed 05/25 for case on 05/28- LL MN ARTHROSCOPY SHOULDER SURGICAL CAPSULORRHAPHY 05/28/2025 11:00 AM EDT Superior glenoid labrum lesion of right shoulder, initial encounter Case Notes BEACH CHAIR, LORIE, GRISELDA, ARTHREX ANCHORSArthrex rep confirmed 05/25 for case on 05/28- LL TH AN NERVE BLOCK INTERSCALENE (NO CHARGE) Routine 05/28/2025 10:06 AM EDT TH AN NERVE BLOCK INTERSCALENE (CHARGE) Routine 05/28/2025 10:06 AM EDT from Last 3 Months Results * TH AN ENDOTRACHEAL(NO CHARGE) (05/28/2025 11:54 AM EDT) Joao Bustos DO - 05/28/2025 11:54 AM EDT Joao Stacy DO 05/28/2025 2:49 PM General Information and Staff Patient location during procedure: OR Anesthesiologist: Joao Stacy DO Resident/LITHOGRAPHIC PROOFER: Kathleen Aldridge DO Performed: resident/LITHOGRAPHIC PROOFER/CAA Performed by: Kathleen Aldridge DO Authorized by: Joao Stacy DO Intubation Reason: elective Final Airway Details Successful airway: ETT Cuffed: yes Successful intubation technique: direct laryngoscopy Adjuncts used in placement: cricoid pressure and intubating stylet Endotracheal tube insertion site: oral Blade: Kehinde Blade size: #3 ETT size (mm): 8.0 Cormack-Lehane Classification: grade I - full view of glottis Placement verified by: chest auscultation and capnometry Measured from: lips ETT to lips (cm): 22 Ventilation between attempts: none Final airway type: endotracheal airway Indications and Patient Condition Indications for airway management: anesthesia and airway protection Sedation level: Yes Preoxygenated: yesSoft Tissue Damage: No Dentition Unchanged: Yes Patient position: sniffing Mask difficulty assessment: 2 - vent by mask + OA or adjuvant +/- NMBA us Joao Stacy DO ANESTHESIA ORDERABLES Fi nal Result * TH AN NERVE BLOCK INTERSCALENE (CHARGE), TH AN NERVE BLOCK INTERSCALENE (NO CHARGE) (05/28/2025 10:06 AM EDT) Caleb Colin MD - 05/28/2025 10:06 AM EDT Caleb Ramírez MD 05/28/2025 10:15 AM Peripheral Block Patient location during procedure: pre-op Start time: 05/28/2025 10:06 AM End time: 05/28/2025 10:11 AM Reason for block: post-op pain management Staffing Performed: anesthesiologist Anesthesiologist: Caleb Ramírez MD Preanesthetic Checklist Completed: patient identified, IV checked, site marked, risks and benefits discussed, surgical consent, monitors and equipment checked, pre-op evaluation and timeout performed Peripheral Block Patient position: supine Prep: ChloraPrep Patient monitoring: continuous pulse ox, heart rate and tire balancer (NIBP) Block type: interscalene (Infraclavicular) Laterality: right Injection technique: single-shot Guidance: ultrasound guided and Ultrasound image saved to chart Local infiltration: lidocaine Infiltration strength: 1 % Dose: 5 mL Needle Needle type: nerve stimulator Needle gauge: 21 G Needle length: 10 cm Needle localization: ultrasound guidance (Ultrasound with tip visualized throughout) Medications Administered bupivacaine PF (MARCAINE) injection 0.5% - peripheral nerve block 20 mL - 05/28/2025 10:06:00 AM fentaNYL (SUBLIMAZE) injection 50 mcg/mL - intravenous 50 mcg - 05/28/2025 10:06:00 AM midazolam (VERSED) injection 1 mg/mL - intravenous 2 mg - 05/28/2025 10:06:00 AM Assessment Injection assessment: negative aspiration for heme, no paresthesia on injection, incremental injection with negative aspiration q 5ml and local visualized surrounding nerve on ultrasound Paresthesia pain: none Heart rate change: no Slow fractionated injection: yes Additional Notes Timeout performed with bedside RN. Anesthesia and surgical consent on chart. Standard aseptic technique: hat, mask, sterile gloves, eye protection. Monitors: NIBP, SpO2, EKG Sedation with meaningful contact. Chloraprep to peripheral nerve block site. Ultrasound guidance throughout. Injectate: Bupivacaine 0.5% Volume: 20 mL Michelle-neural/fascial plane visualization of local anesthetic spread. Ultrasound image saved to chart. Block performed per surgeon request (ordered on chart). Caleb Ramírez MD ANESTHESIA ORDERABLES Edited Result - Final from Last 3 Months Insurance [facility]
--- OUTSIDE RECORDS SUMMARY | 2025-07-24 18:49 | XMS_ITS | Continuity of Care Document ---
Author Organization [place] [facility] Magda Brewer AONE [facility] Address [address] [facility] [address] [place] [address] Care Team Providers Care Research Librarian Name Role Phone BARBY VAUGHN Primary Care Provider BARBY VAUGHN Referring Provider BARBY VAUGHN Primary Care Provider Assessment Encounter Date Assessment Date Assessment LastModified by Organization Details LastModified Time 07/03/2025 07/03/2025 IMPRESSION: status post RIGHT Open Biceps Tenodesis (Date of surgery 05/28/2025, at [facility] PLAN: Patient is doing well. Patient may continue with physical therapy, a PT prescription was provided. We will see them back for repeat clinical evaluation in 8 weeks. I did provide him with a handout related to tricep tendinitis as well Postoperative Care Summary For Open Biceps Tenodsis [...] and sooner if issues arise. Not available 07/03/2025 11:32:12 Plan of Treatment Reminders Order Date Submit [...] Surgeon clearance for unrestric dung activity 2024 Pradeep De Oliveira Not available 07/03/2025 11:37:33 Procedures None recorded. Surgeries None recorded. 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 Procedures Surgical History Date Name Laterality Status Provider Name and Address Organization Details Recorded Time 05/28/20 25 SHOULDER ARTHROSCOPY WITH SLAP LESION REPAIR (SURG) [facility] 05/29/2025 09:27:46 11/29/19 25 AJR Subacromial Inj completed Charlie Ricci MD [address], [facility] [place], [phone], [facility], [facility] 11/28/2024 10:08:17 Imaging Results None recorded. [...] use any illicit or recreational drugs? No [email or web address] Information not available 11/28/2024 Do you or have you ever used any other forms of tobacco or nicotine? No [email or web address] Information not available 11/28/2024 What is your level of alcohol consumption? None [email or web address] Information not available 11/28/2024 Mental Status None recorded. Family History Nothing Reported. Medical History No medical history recorded. Past Encounters Encounter ID Performer Location Encounter Start Date Encounter Closed Date Diagnosis/Indication Diagnosis SNOMED-CT Code Diagnosis ICD10 Code Diagnosis IMO Codes Diagnosis Note [id number] MD GHAZAL Fleming [facility] [address] [phone] 06/05/2025 11:06:35 06/05/2025 11:58:29 Postoperative visit 806739574 Z48.89 [id number] Right shoulder open biceps tenodesis distal clavicle excision SA D date of surgery 05/28/2025 [id number] MD GHAZAL Fleming [facility] [address] [phone] 07/03/2025 11:08:24 07/03/2025 11:33:15 Postoperative visit 657998642 Z48.89 [id number] Right shoulder open biceps tenodesis distal clavicle excision SA D date of surgery 05/28/2025 Health Concerns Section Related Observation LastModified by Organization Detai ls LastModified Time None Recorded Concern Status LastModified by Organization Details LastModified Time None Recorded Payers Encounter Date Sequence Insurance Name Policy Number Policy Funes Covered Member ID Funes Member ID Guarantor Name 07/03/2025 1 [facility] [place] Kenny Olmedo [id number] Kenny Olmedo Notes Date Note Type Note Provider Name and Address Organization Details Recorded Time 07/03/2025 text/html ROS as noted in the HPI The patient returns to the office he is 5 weeks removed from his right open biceps releases distal clavicle excision PRIOR ARPatient presents for their first postoperative visit. They are status post the following procedure1) Right shoulder open biceps tenodesis, subacromial decompression distal clavicle excision. (05/28/2025 at [facility]) Charlie Ricci MD [address] [place] [address], [phone], [place] [facility] [place], [facility] 07/03/2025 11:32:21
--- OUTSIDE RECORDS SUMMARY | 2025-07-24 18:49 | XMS_ITS | Data Portability ---
Author Organization [facility], Telehealth Patient Home Address [address] [place] [address] Assessment No assessment recorded. Plan of Treatment Reminders Order Date Submit Date Provider Last Modified By Organization Details Last Modified Time Details Appointments None recorded. Lab testostero ne, total, serum 2022 023 [facility], [address] [place] [address], [address], 3 11:45:45 vitamin D, 25-hydroxy , total, serum 2022 023 [facility], [address] [place] [address], [address], 3 11:20:31 CMP, serum or plasma 2022 023 [facility], [address] [place] [address], [address], 3 12:05:40 lipid panel, blood 2022 023 [facility], [address] [place] [address], [address], 3 11:20:31 CBC w/ diff 2022 023 [facility], [address] [place] [address], [address], 3 11:20:31 CMP, serum or plasma [id number] [facility], [address] [place] [address], [address], 11:16:30 lipid panel, blood 2021 [facility], [address] [place] [address], [address], 11:16:30 CBC w/ diff 2021 [facility], [address] [place] [address], [address], 11:16:30 vitamin D, 25-hydroxy , total, serum 2021 [facility], [address] [place] [address], [address], 12:15:08 TSH, serum or plasma 2021 [facility], [address] [place] [address], [address], 11:16:30 testostero ne, total, serum 2021 [facility], [address] [place] [address], [address], 12:09:05 Referral None recorded. Procedures None recorded. Surgeries None recorded. Imaging US, testicle 2021 [email or web address] 10 [facility] (Imaging), [address] [place] [address], [address], 08:56:22 home sleep study - Per website- Hst w/type iii prtble mon unattended min 4 ch No referral required 2021 [email or web address] [facility] Central Scheduling, [address] [place] [address], [address], 09:59:43 Medication Orders Valtrex 1 gram tablet [address] [id number], [address] [place], [id number], 5 09:25:05 diclofenac sodium 75 mg tablet,del ayed release [address] [id number], [address] [facility] [place], [id number], 5 09:24:19 Patient TargetsNo targets recorded. Patient InstructionsNo instructions recorded. Reason for Referral None Reported. Results Created Date Observation Date Name Description Value Unit Range Abnormal Flag Note LastModifiedBy Organization Detail LastModifiedTime 12/09/19 22 12/08/2021 XR, lumbo sacra l spine No observ ation record ed. RAN Not Available 2021 09:27:49 12/20/19 22 12/18/2021 US, testi tadeo No observ ation record ed. [facility] [address] [place], [address], 12/23/2021 08:25:30 02/12/20 22 01/29/2022 home sleep study No observ ation record ed. [facility] [address] [place] [address], [address], 02/16/2022 08:23:36 11/03/19 24 11/02/2023 RF, upper gastr ointe devon l tract , w/ contr ast PO No observ ation record ed. [email or web address] [facility] (Medical Records) [address] [place] [address] [place], [address], 11/05/2023 08:44:43 05/12/20 24 05/05/2024 XR, shoul radha, 2 or more view No observ ation record ed. [email or web address] [facility] (Medical Records) [address] [facility], [place], [address], 05/15/2024 22:47:08 05/23/20 24 05/22/2024 MRI, cathie garcia, w/o contr ast No observ ation record ed. [email or web address] [facility] [address], [place], [address], 05/30/2024 22:32:39 Result Notes None recorded. Problems Name Problem SNOMED Code Status Onset Date Resolution Date Notes Provider Name and Address Organization Details Recorded Time Pain of left testicle 036243210368 74150 Active 2021 Chao Sutherland DO [address] [place] [address], [address], [facility] 2 12:09:34 Fatigue 37256637 Active 2021 Chao Sutherland DO [address] [place] [address], [address], [facility] 2 12:11:04 Low back pain 405556173 Active 2021 Chao Sutherland DO [address] [place] [address], [address], [facility] 2 10:09:04 Herpes labialis 0866854 Active 2021 TATIANA JIMENEZ [address] [place] [address], [address], [facility] 2 16:00:32 Hypotesto steronism 126287239229 4 Active 2021 Chao Sutherland DO [address] [place] [address], [address], [facility] 2 22:31:13 Lumbago with sciatica 137615405 Active 2021 Chao Sutherland DO [address] [place] [address], [address], [facility] 2 15:09:59 Lumbago with sciatica 464710492 Active 2021 Chao Sutherland, DO [address] [place] [address], [address], [facility] 2 15:10:15 Vitamin D deficienc y 92675849 Active 2022 Chao Sutherland, DO [address] [place] [address], [address], [facility] 3 11:12:06 Esophagea l dysphagia 90640795 Active 2023 Chao Danielle Sutherland, DO [address] [place] [address], [address], [facility] 4 12:26:36 Esophagea l dysmotili ty 913723877 Active 2023 TATIANA JIMENEZ [address] [place] [address], [address], [facility] 4 08:45:51 Injury of tendon of the rotator cuff of shoulder 763375549 Active 2023 Chao Sutherland, DO [address] [place] [address], [address], [facility] 4 22:48:12 Injury of tendon of the rotator cuff of shoulder 035227990 Active 2023 Chao Sutherland, DO [address] [place] [address], [address], [facility] 5 09:42:27 Partial thickness rotator cuff tear 896021042 Active 2023 Chao Sutherland, DO [address] [place] [address], [address], [facility] 4 22:34:23 Rupture of rotator cuff of right shoulder 765130911561 16091 Active 2023 Chao Sutherland DO [address] [place] [address], [address], [facility] 4 15:57:54 Problem Notes None recorded. Procedures Surgical History Date Name Laterality Status Provider Name and Address Organization Details Recorded Time 020 Corticosteroid Injection completed Chao BernardoCeleste Badillosupriya, DO [address] [facility], [place], [address], [facility] 11/08/2019 11:35:48 Appendectomy completed Kamini Aguirre [facility] 10/23/2019 11:51:58 Vasectomy completed Kamini [facility] 10/23/2019 11:52:08 Imaging Results [...] Available Not Available Vitals Date Recorded Body height Body mass index (BMI) Body weight Heart rate Oxygen saturation Systolic And Diastolic Provider Name and Address Organization Details Last Updated DateTime 2 170.18 cm 35.6 kg/m2 102365. 9 g 92 /min 97 % 118/70 mm[Hg] Chao Sutherland DO [address] [place], [address] 2 11:56:39 Date Recorded Body height Body mass index (BMI) Body weight Heart rate Oxygen saturation Systolic And Diastolic Provider Name and Address Organization Details Last Updated DateTime 3 170.18 cm 36.6 kg/m2 869294. 61 g 73 /min 98 % 118/60 mm[Hg] Chani Haddad [facility] 3 10:49:03 Date Recorded Body height Body mass index (BMI) Body weight Heart rate Oxygen saturation Systolic And Diastolic Provider Name and Address Organization Details Last Updated DateTime 2 170.18 cm 35.2 kg/m2 539330. 21 g 85 /min 98 % 120/70 mm[Hg] TATIANA JIMENEZ [address] [place], [address] 2 15:56:46 Date Recorded Body height Body mass index (BMI) Body weight Oxygen saturation Heart rate Systolic And Diastolic Provider Name and Address Organization Details Last Updated DateTime 1 170.18 cm 35 kg/m2 247972. 89 g 98 % 78 /min 120/80 mm[Hg] Jessica Medrano [facility] 1 11:08:19 Date Recorded Body weight Oxygen saturation Heart rate Systolic And Diastolic Provider Name and Address Organization Details Last Updated DateTime 05/23/2025 088202.48 g 97 % 87 /min 118/72 mm[Hg] JEROME MICKY [facility] 05/23/2025 09:26:50 Social History Question Answer Notes LastModified by Remitly Details LastModified Time Tobacco Smoking Status [facility] 11:47:58 What Is Your Level Of Caffeine Consumption? Moderate 2 Cups Coffee Per Day Information not available 10/23/2019 What Was The Date Of Your Most Recent Tobacco Screening? 05/23/2025 [email or web address] Information not available 05/23/2025 Sex: Unknown Functional Status Question Answer Note LastModified by Remitly Details LastModified Time What is your level [...] mcg/0.3 mL dose 1 completed Jessica carbajal [facility] 05/12/2021 09:39:34 COVID-19, mRNA, LNP-S, PF, 30 mcg/0.3 mL dose 1 completed Jessica carbajal [facility] 05/12/2021 09:39:40 Influenza, split virus, quadrivalent, preservative 1 completed Chao Sutherland, DO [address] [place], [address], [facility] 12/02/2021 11:55:50 Influenza, split virus, quadrivalent, preservative 9 [facility] 10/23/2019 11:47:48 Past Encounters Encounter ID Performer Location Encounter Start Date Encounter Closed Date Diagnosis/Indication Diagnosis SNOMED-CT Code Diagnosis ICD10 Code Diagnosis IMO Codes Diagnosis Note [id number] Chao Sutherland [facility] [address] [place] [address], [place] [address] 10/23/2019 11:26:37 10/23/2019 14:20:39 Rupture of rotator cuff of right shoulder 0177576895 8700511 M75.101 will see after and refer to ortho as necess Adult heal th examination 357759137 Z00.00 [id number] Chao Sutherland [facility] [address], [place] [address] 11/08/2019 10:26:27 11/08/2019 11:40:57 Bursitis of right shoulder 9130103804 73180 M75.51 cortisone inj well tolerated [id number] Chao Sutherland [address], [place] [address] 07/24/2020 10:56:21 07/24/2020 11:39:39 Right lateral elbow tendinopathy 7819698573 97256 M77.11 will do trial of diclofenac and have him use elbow strap and see if improvemen t [id number] Chao Sutherland [facility] [address],[place] [address] 05/12/2021 10:58:31 05/13/2021 16:46:17 Strain of tendon of adductor muscle of thigh 850245588 S76.212A will trreat with rest ice and will use diclofenac [id number] Chao Sutherland [facility] [address],[place] [address] 12/02/2021 11:50:32 12/02/2021 13:42:07 Active or passive immunization 304441830 Z23 utd Adult heal th examination 534370935 Z00.01 Pain of left testicle 16 30553227 4275388 N50.812 Fatigue 04968644 R53.83 [id number] Chao Danielle Sutherland [facility] [address] [facility] [address],[place] [address] 03/25/2022 15:50:57 03/25/2022 16:16:40 Herpes labialis 2452400 B00.1 will start on valtrex [id number] Chao Danielle Sutherland [facility] [address] [facility] [address],[place] [address] 12/23/2022 10:41:46 12/23/2022 11:41:24 Active or passive immunization 288248731 Z23 utd Adult heal th examination 801819142 Z00.00 doing well no major issuesdisc ussed meds and we will chk levels as well Vitamin D deficiency 347 14957 E55.9 will need to check just finished winter weather Hypotestosteronism 55950 78700 104 R79.89 not feeling all that much improved with T replacemen t ; ? need for higher dose [id number] Chao Danielle Sutherland [facility] [address] [facility] [address] [address] 05/23/2025 09:20:40 05/23/2025 09:46:37 Pre-surgery evaluation 294971885 Z01.818 Per the 2017 ACC cardiac risk stratifica tion (revised) this patient poses an extremely low risk for the proposed procedure and is cleared at this time. He is on no medication s . Injury of tendon of the rotator cuff of shoulder 910000560 S46.001D noted will have surgical repair this wednesday Health Concerns Section Related Observation LastModified by Organization Detai ls LastModified Time None Recorded Concern Status LastModified by Organization Details LastModified Time None Recorded Advance Directives Directive None Recorded Payers Insurance Date Sequence Insurance Name Policy Number Policy Funes Covered Member ID Funes Member ID Guarantor Name 05/22/2025 1 [facility] () Kenny Olmedo [id number] Kenny Olmedo Notes Date Note Type Note Provider Name a nd Address Organization Details Recorded Time 1 text/html ROS as noted in the HPI injured his groin on the left over the weekendinjured this sat and wednesday could barely walk it hurt so badpain is inside the medial aspect of the left thigh c/w a adductor strainpain has bothered him occ in the past but not this severe Chao Sutherland, [address] [place], [address], [facility] 05/12/2021 11:34:42 2 text/html Annual WellnessReported by PatientSocial/Behavio ral HistoryFor diet and nutrition, patient reportshealthy diet. For fracture risk, patient reportsno history of fractures,no recent explained fracture,no sudden unexplained fractures, andno previous musculoskeletal injuries. For physical activity, patient reportsexercises on a regular basis,recent increase in physical activity, andgood physical condition. For additional lifestyle factors, patient reportsno tobacco use,no alcohol intake, andstopped drinking alcohol.Mental Status:For depression risk, patient reportsnever feels sad, empty, or tearful,no loss of interest in activities,no significant changes in weight,no sleep disturbances or insomnia,no agitation,no loss of energy,no feelings of worthlessness or guilt,no thoughts of suicide,no history of depression, andno history of mood disorders.Functional AbilityFor hearing, patient reportsno loss of hearing. For vision, patient reportsno vision problems. Chao Sutherland DO [address] [place], [address], [facility] 12/02/2021 12:13:43 2 text/html ROS as noted in the HPI f/u sores around the lips the patient was recently at the [facility] developed sore around his lips classic presentation and appearance of sores on the lips for cold sores will fu with valtrex treatment will fu if no improvement TATIANA JIMENEZ [address] [place], [address], [facility] 03/25/2022 16:09:23 3 text/html Annual WellnessReported by PatientSocial/Behavio ral HistoryFor diet and nutrition, patient reportshealthy diet. For fracture risk, patient reportsno history of fractures,no recent explained fracture,no sudden unexplained fractures, andno previous musculoskeletal injuries. For physical activity, patient reportsexercises on a regular basis,recent increase in physical activity, andgood physical condition. For additional lifestyle factors, patient reportsno tobacco use,no alcohol intake, andstopped drinking alcohol.Mental Status:For depression risk, patient reportsnever feels sad, empty, or tearful,no loss of interest in activities,no significant changes in weight,no sleep disturbances or insomnia,no agitation,no loss of energy,no feelings of worthlessness or guilt,no thoughts of suicide,no history of depression, andno history of mood disorders.Functional AbilityFor hearing, patient reportsno loss of hearing. For vision, patient reportsno vision problems.ROS as noted in the HPI Chao Sutherland DO [address] [place] [address], [address], [facility] 12/23/2022 11:18:44 text/html Pre-OpReported by PatientHPIFor risk factors, patient [...] no other constitutional signs Chao Sutherland DO [address] [place] [address], [address], [facility] 05/23/2025 09:42:40
--- OUTSIDE RECORDS SUMMARY | 2025-07-24 18:49 | XMS_ITS | Patient Health Record ---
Author Organization [facility] [facility] Address [address] [place] [address] Care Team Providers Care Head Of Advertising Name Role Phone Ena Chao Primary Care Provider Ziggy Groves [phone] Allergies Allergen (clinical drug ingredient) Drug/Non Drug Allergy documented on EMR Reaction Allergy Type Onset Date Status seasonal (uncoded) Unknown Allergy A ctive Reason For Referral No Information Immunizations Vaccine Route Administration Date Status Comme nts Influenza Unknown 06/22/2023 Administered Social History Tobacco Use: Social History Observation Description Date Details (start date - stop date) Never Smoker NA - NA Social History Drugs/Alcohol: Social Info Question Answer Notes Alcohol Screen Did you have a drink containing alcohol in the past year? Yes How often did you have a drink containing alcohol in the past year? Monthly or less (1 point) How many drinks did you have on a typical day when you were drinking in the past year? 1 or 2 drinks (0 point) How often did you have 6 or more drinks on one occasion in the past year? Never (0 point) Points 1 Interpretation Negative Tobacco Use: Social Info Question Answer Notes Tobacco Use/Smoking Patient is a nonsmoker Additional Details Category Social Info Options Details Miscellaneous: Marital status: Occupation: works full-time Section Notes: Nonsmoker; no sig alcohol Problems Problem Type SNOMED Code ICD Code Onset Dates Problem Status W/U Status Risk Notes Problem Gastro-esophageal reflux disease without esophagitis (248189361) Gastro-esophag eal reflux disease without esophagitis (K21.9) Active confirmed Problem Heartburn (37711825) Heartburn (R12) Active confirmed Problem Gastroesophageal reflux disease (disorder) (223238223) Chronic GERD (K21.9) Active confirmed Plan Of Treatment Pending Test Test Name Order Date Pathology 06/30/2024 Future Test Test Name Order Date UPPER GI ENDOSCOPY 03/10/2024 Insurance Providers Payer Name Payer Address Payer Phone Subscriber Number Group Number Insured Name Patient Relationship to Insured Coverage Start Date Coverage End Date [facility] Attn Claims [address] [place] [address] [id number] JOSE ALFREDO ROBERSON Self - patient is the insured Medical (General) History Medical History History ICD Code Denies NE,DM,CVA,Lung disease,renal dise ase GERD Surgical History Surgery Date(Month/Year)
--- OUTSIDE RECORDS SUMMARY | 2025-07-24 18:49 | XMS_ITS | Data Portability ---
Author Organization [place] [facility] Magda Brewer AONE [place] Address [address] [place] [address] Care Team Providers Care Lay Out Drafter Name Role Phone BARBY VAUGHN Primary Care Provider [phone] Assessment Encounter Date Assessment Date Assessment LastModified by Organization Details LastModified Time 11/28/2024 11/28/2024 IMPRESSION: with impingement of the RIGHT shoulder with SLAP tear lesions, parial articular sided supraspinatus tear, low grade PLAN: I discussed the history, clinical examination, and imaging findings with the Patient in detail today. I discussed the treatment options with the patient includin. Living with the symptoms. 2. Continued non-operative management. 3. Surgical intervention. After going over all of their options in detail, my recommendation is to start with a dedicated course of non operative treatment. I explained that the mainstay of initial treatment are things like time, activity modification, relative rest, regular icing, physical therapy with a home exercise program (with a focus on four quadrant stretching, rotator cuff strengthening, periscapular muscle strengthening, and postural retraining), over the counter or prescription strength oral anti-inflammatori es if they can be safely tolerated (may need to discuss with primary care provider), acetaminophen as needed, and topical ointments. A discussion regarding the risks and benefits of a subacromial corticosteroid injection was had with the patient. Risks include but not limited to pain, swelling, bleeding, infection, allergic reaction, elevated blood sugars, incomplete pain relief, tendon injury, bone loss, nerve damage, permanent skin depigmentation, fat atrophy and steroid flare. After reviewing the risks and benefits, patient verbalized understanding of the informed consent and elected to proceed with a corticosteroid injection. Patient tolerated the injection well. After a nice discussion with the patient and through shared decision making we ultimately elected to proceed with a focus on maximizing non-operative symptom management, to include: 1. Activity modification, relative rest, time. Maximize the things they can do, minimize the things that aggravate symptoms. 2. Regular icing as needed with ice packs placed about the shoulder for 20 minutes on and 20 minutes off. I cautioned the Patient to not place ice directly on the skin as this can cause a frostbite. 3. Gentle four quadrant stretching, rotator cuff strengthening, periscapular muscle strengthening, and postural retraining. the Patient would like to do this with the help and direction of a Physical Therapist, and I am supportive of this approach. I placed a referral to Physical Therapy today and encouraged them to call and make their initial evaluation and appointment soon. 4. Over the counter Tylenol as needed for pain. 5. Prescription strength NSAID therapy. A prescription was sent today for Meloxicam 15 mg daily for 30 days with 2 refills. If further anti-inflammatory medication is desired, I encouraged the Patient to discuss this with their primary care provider. the Patient was educated today on proper use of pain medications, including alternating anti-inflammatori es with antipyretics for synergistic pain relief as needed, in addition to medication limits and taking medications with food to avoid GI upset. the Patient confirmed that they will discontinue taking the medication immediately if they experience any side effect and will inform the office as well. 6. Return to clinic in 2 months At the conclusion of the office visit, the patient verbally acknowledged that I answered all of their questions satisfactorily. Not available 11/28/2024 10:08:08 01/30/2025 01/30/2025 IMPRESSION: with impingement of the RIGHT shoulder with SLAP tear lesions, partial articular sided supraspinatus tear, low grade - now with worsening symptoms PLAN: The above findings were discussed in detail with the patient today. He is on appropriate nonoperative management in the form of corticosteroid injection 3+ months of physical therapy, continues to demonstrate dysfunction. This concern for labral injury on advancement of partial rotator cuff tear to full-thickness. Therefore, a prescription for a RIGHT shoulder MRI scan without contrast was provided. The patient will follow-up upon completion of the MRI. Discussion regarding further treatment options pending review of advanced imaging at subsequent visit. Patient verbalized understanding of this plan and was in agreement. All questions were answered to the patient's satisfaction. PRIOR AR I discussed the history, clinical examination, and imaging findings with the Patient in detail today. I discussed the treatment options with the patient includin. Living with the symptoms. 2. Continued non-operative management. 3. Surgical intervention. After going over all of their options in detail, my recommendation is to start with a dedicated course of non operative treatment. I explained that the mainstay of initial treatment are things like time, activity modification, relative rest, regular icing, physical therapy with a home exercise program (with a focus on four quadrant stretching, rotator cuff strengthening, periscapular muscle strengthening, and postural retraining), over the counter or prescription strength oral anti-inflammatori es if they can be safely tolerated (may need to discuss with primary care provider), acetaminophen as needed, and topical ointments. A discussion regarding the risks and benefits of a subacromial corticosteroid injection was had with the patient. Risks include but not limited to pain, swelling, bleeding, infection, allergic reaction, elevated blood sugars, incomplete pain relief, tendon injury, bone loss, nerve damage, permanent skin depigmentation, fat atrophy and steroid flare. After reviewing the risks and benefits, patient verbalized understanding of the informed consent and elected to proceed with a corticosteroid injection. Patient tolerated the injection well. After a nice discussion with the patient and through shared decision making we ultimately elected to proceed with a focus on maximizing non-operative symptom management, to include: 1. Activity modification, relative rest, time. Maximize the things they can do, minimize the things that aggravate symptoms. 2. Regular icing as needed with ice packs placed about the shoulder for 20 minutes on and 20 minutes off. I cautioned the Patient to not place ice directly on the skin as this can cause a frostbite. 3. Gentle four quadrant stretching, rotator cuff strengthening, periscapular muscle strengthening, and postural retraining. the Patient would like to do this with the help and direction of a Physical Therapist, and I am supportive of this approach. I placed a referral to Physical Therapy today and encouraged them to call and make their initial evaluation and appointment soon. 4. Over the counter Tylenol as needed for pain. 5. Prescription strength NSAID therapy. A prescription was sent today for Meloxicam 15 mg daily for 30 days with 2 refills. If further anti-inflammatory medication is desired, I encouraged the Patient to discuss this with their primary care provider. the Patient was educated today on proper use of pain medications, including alternating anti-inflammatori es with antipyretics for synergistic pain relief as needed, in addition to medication limits and taking medications with food to avoid GI upset. the Patient confirmed that they will discontinue taking the medication immediately if they experience any side effect and will inform the office as well. 6. Return to clinic in 2 months At the conclusion of the office visit, the patient verbally acknowledged that I answered all of their questions satisfactorily. Not available 01/30/2025 09:21:33 02/13/2025 02/13/2025 IMPRESSION: 44-year-old man with right shoulder posterior labral lesions, SLAP tear, articular sided rotator cuff tear and AC joint tenderness PLAN: I discussed the treatment options with the patient includin. Living with the symptoms. 2. Continued non-operative management. 3. Surgical intervention After going over these options, the patient would like to proceed with RIGHT shoulder arthroscopy, labral repair, possible biceps tenodesis, possible distal clavicle excision, possible rotator cuff repair and related procedures. We reviewed the risks and benefits of surgery including but not limited to the following: Risk of anesthesia and/or surgery, including but not limited to: , infection, nerve/tendon/vess el injury, deep venous thrombosis (DVT), pulmonary embolism (PE), shoulder stiffness, labral repair non-healing or re-tear, recurrent instability, hardware-related problems, potential of the procedure to not alleviate the condition, pain, stiffness, scarring, arthritis, reaction, unexpected findings, Puma deformity, clavicular instability and the potential need for further surgery in the future. After going over these risks, benefits, and alternatives the patient would like to proceed with surgery. All of their questions were answered satisfactorily and the patient gave me verbal surgical consent to proceed and signed consent form. All appropriate paperwork was completed and the patient will contact our surgical scheduling department to coordinate the surgery. The patient will met with our Orthotics team for their post-operative needs. We will provide the post-operative pain management prescription and I discussed with limiting opioid use if possible. I discussed with the patient that the expected recovery time may be 3 to 9 months at minimum. I discussed with the patient that I preferred they limit post-operative opioid use and use the multimodal pain medicine strategy if possible. I had a clear conversation with the patient about post-op pain management and use of opioids specifically. We will be providing a multi-modal combination of medications designed to limit the use of opioids. The opioid will be used for short term post-op pain management only and should be used cautiously. I discussed the risks associated with the highly addictive nature of opioids (physical or psychological dependence), even when taken as prescribed, as well as over dosage. I also reviewed the dangers of opioids when taken alone or in combination with alcohol, benzodiazepines, sleep medications (prescription or over the counter), or other central nervous system depressants. Risks including but not limited to fatal respiratory depression and impaired judgement were discussed. I gave specific instructions not to drive while taking narcotic pain medication. At the conclusion of the visit, the patient verbally acknowledged that all questions were answered satisfactorily. Patient was prescribed a ARC shoulder sling for the above diagnosis. The patient has weakness and/or instability of their Right shoulder which requires stabilization from this semi-rigid/rigid orthosis to improve their function. PRIOR AR I discussed the history, clinical examination, and imaging findings with the Patient in detail today. I discussed the treatment options with the patient includin. Living with the symptoms. 2. Continued non-operative management. 3. Surgical intervention. After going over all of their options in detail, my recommendation is to start with a dedicated course of non operative treatment. I explained that the mainstay of initial treatment are things like time, activity modification, relative rest, regular icing, physical therapy with a home exercise program (with a focus on four quadrant stretching, rotator cuff strengthening, periscapular muscle strengthening, and postural retraining), over the counter or prescription strength oral anti-inflammatori es if they can be safely tolerated (may need to discuss with primary care provider), acetaminophen as needed, and topical ointments. A discussion regarding the risks and benefits of a subacromial corticosteroid injection was had with the patient. Risks include but not limited to pain, swelling, bleeding, infection, allergic reaction, elevated blood sugars, incomplete pain relief, tendon injury, bone loss, nerve damage, permanent skin depigmentation, fat atrophy and steroid flare. After reviewing the risks and benefits, patient verbalized understanding of the informed consent and elected to proceed with a corticosteroid injection. Patient tolerated the injection well. After a nice discussion with the patient and through shared decision making we ultimately elected to proceed with a focus on maximizing non-operative symptom management, to include: 1. Activity modification, relative rest, time. Maximize the things they can do, minimize the things that aggravate symptoms. 2. Regular icing as needed with ice packs placed about the shoulder for 20 minutes on and 20 minutes off. I cautioned the Patient to not place ice directly on the skin as this can cause a frostbite. 3. Gentle four quadrant stretching, rotator cuff strengthening, periscapular muscle strengthening, and postural retraining. the Patient would like to do this with the help and direction of a Physical Therapist, and I am supportive of this approach. I placed a referral to Physical Therapy today and encouraged them to call and make their initial evaluation and appointment soon. 4. Over the counter Tylenol as needed for pain. 5. Prescription strength NSAID therapy. A prescription was sent today for Meloxicam 15 mg daily for 30 days with 2 refills. If further anti-inflammatory medication is desired, I encouraged the Patient to discuss this with their primary care provider. the Patient was educated today on proper use of pain medications, including alternating anti-inflammatori es with antipyretics for synergistic pain relief as needed, in addition to medication limits and taking medications with food to avoid GI upset. the Patient confirmed that they will discontinue taking the medication immediately if they experience any side effect and will inform the office as well. 6. Return to clinic in 2 months At the conclusion of the office visit, the patient verbally acknowledged that I answered all of their questions satisfactorily. Not available 02/13/2025 10:46:06 06/05/2025 06/05/2025 IMPRESSION: status post RIGHT Open Biceps Tenodesis (Date of surgery 05/28/2025, at [facility] PLAN: Martin is doing well. At this [...] with therapies and sooner if issues arise. [email or web address] Not available 06/05/2025 12:01:11 07/03/2025 07/03/2025 IMPRESSION: status post RIGHT Open Biceps Tenodesis (Date of surgery 05/28/2025, at [facility] PLAN: Patient is doing well. Patient may [...] clearance for unrestric dung activity 2024 025 jose martin De Oliveira Not available 07/03/2025 11:37:33 physical therapist referral - Therapy begins postop [...] clearance for unrestric dung activity 2024 025 ronna Not available 06/05/2025 11:58:29 physical therapist referral - 2-3x per week for 8 weeks, Four quadrant Stretchin g, Rotator Cuff Strengthe diamond 2024 025 [email or web address] Not available 11/28/2024 10:09:24 Procedures None recorded. Surgeries shoulder arthrosco py with slap lesion repair (SURG) 2024 025 RAN Not available 05/29/2025 09:27:19 Imaging MRI, shoulder, w/o contrast - Right shoulder, failed appropria te nonoperat george managemen t 3+ months of physical therapy, corticost eroid injection , positive [place], positive [place] positive Malka test evaluate for rotator cuff tear full-thic kness, labral injury superior labrum posterior labrum 2024 025 RAN Not available 02/12/2025 12:23:26 Medication Orders meloxicam 15 mg tablet 2024 025 [id number], [address], [place], [id number], 11/28/2024 10:07:29 lidocaine (PF) 10 mg/mL (1 %) injection solution 2024 025 Not available 02/13/2025 09:00:57 Marcaine (PF) 0.5 % (5 mg/mL) injection solution 2024 025 Not available 02/13/2025 09:01:01 triamcino lone acetonide 40 mg/mL suspensio n for injection 2024 025 [email or web address] Not available 02/13/2025 09:01:03 Patient TargetsNo targets recorded. Patient Instructions Encounter Date Encounter Id Patient Instructions Last Modified By Organization Details Last Modified Time 11/28/2024 [id number] [facility] Rotator Cuf f Conditioning Not available 11/28/2024 10:07:02 Reason for Referral Physical Therapist Referral for Disorder of shoulder 2-3x per week for 8 weeks, Four quadrant Stretching, Rotator Cuff Strengthening Referring Physician: Charlie Ricci, Orthopedic Surgery, Encounter Date: 11/28/2024 Physical Therapist Referral for Postoperative visit Therapy [...] Charlie Ricci, Orthopedic Surgery, Encounter Date: 06/05/2025 Physical Therapist Referral for Postoperative visit Therapy [...] Charlie Ricci, Orthopedic Surgery, Encounter Date: 07/03/2025 Results Created Date Observation Date Name Description Value Unit Range Abnormal Flag Note LastModifiedBy Organization Detail LastModifiedTime 11/24/1905/22/2024 MRI, shoul radha, w/o contr ast No observ ation record ed. [email or web address] [facility] [address], [address], 11/23/2024 09:17:08 11/24/1905/05/2024 XR, shoul radha, 2 or more view No observ ation record ed. [email or web address] [facility] [address] [facility], [place], [address], 11/23/2024 09:17:54 02/06/2002/05/2025 MRI, shoul radha, w/o contr ast No observ ation record ed. [email or web address] Not Available 2024 12:23:26 Result Notes None recorded. 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 Procedures Surgical History Date Name Laterality Status Provider Name and Address Organization Details Recorded Time 05/28/20 25 SHOULDER ARTHROSCOPY WITH SLAP LESION REPAIR (SURG) completed Kely López [facility], P 05/29/2025 09:27:46 11/29/19 25 AJR Subacromial Inj completed Charlie Ricci MD [address], [facility] [place], [address], [facility], P 11/28/2024 10:08:17 Imaging Results None recorded. [...] and Address Organization Details Last Updated DateTime 11/28/2024 170.18 cm 34.5 kg/m2 36[address] [facility], 11/28/2024 12:03:27 Social History None recorded. Functional Status Question Answer Note LastModified by Organizat ion Details LastModified Time Do you use any illicit or recreational drugs? No [email or web address] Information not available 11/28/2024 Do you or have you ever used any other forms of tobacco or nicotine? No [email or web address] Information not available 11/28/2024 What is your level of alcohol consumption? None [email or web address] Information not available 11/28/2024 Mental Status None recorded. Family History Nothing Reported. Medical History No medical history recorded. 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 574340827 S43.431A [id number] MD GHAZAL Fleming [address] [address] 01/30/2025 09:02:57 01/30/2025 09:20:48 Injury of superior glenoid labrum of shoulder joint 043407526 S43.431A [id number] MD GHAZAL Fleming [address] [place] [address] 02/13/2025 08:34:16 02/13/2025 09:35:11 Disorder of shoulder 714494243 M25.819 979617 Injury of superior glenoid labrum of shoulder joint 693632820 S43.431A [id number] MD GHAZAL Fleming [facility] [address] [facility] [address] [facility] [place] [address] 06/05/2025 11:06:35 06/05/2025 11:58:29 Postoperative visit 183707401 Z48.89 [id number] Right shoulder open biceps tenodesis distal clavicle excision SA D date of surgery 05/28/2025 [id number] MD GHAZAL Fleming [facility] [address] [facility] [address] [facility] [place] [address] 07/03/2025 11:08:24 07/03/2025 11:33:15 Postoperative visit 802805126 Z48.89 [id number] Right shoulder open biceps tenodesis distal clavicle excision SA D date of surgery 05/28/2025 Health Concerns Section Related Observation LastModified by Organization Detai ls LastModified Time None Recorded Concern Status LastModified by Organization Details LastModified Time None Recorded Advance Directives Directive None Recorded Payers Insurance Date Sequence Insurance Name Policy Number Policy Funes Covered Member ID Funes Member ID Guarantor Name 06/12/2025 1 [facility] () Kenny Olmedo [id number] Kenny Olmedo Notes Date Note Type Note Provider Name and Address Organization Details Recorded Time 11/28/2024 text/html ROS as noted in the HPI 44-year-old [id number] man presenting with several month history of right shoulder pain no known injury. He has pains in April 2024. He noted when he was and fall league for baseball and throwing and had increased pain. He previously saw physician at [facility] who provided injection the provided 0 relief he has been going to physical therapy and resilience for the past 3 months. He rates his pain at best 0 out of 10 at worst 9.5-10 with a SANE score of 60% endorses night symptoms. He denies any past medical history PSHx does not smoke or drink alcohol. 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 Charlie Ricci MD [address] [address], [place], [address], [place] [facility] P 11/28/2024 10:11:42 01/30/2025 text/html ROS as noted in the HPI Fiona returns to the office today. He has been doing physical therapy. He felt that the injection helped but his pain is slowly returning. He did relieve his nighttime symptoms. He continues to have dysfunction with respect to his right shoulder. Today he rates his pain a 0 out of 10 at best and at worst 8.5-10 SANE score is 50%. His shoulder pain and dysfunction persist despite appropriate nonoperative management PRIOR [id number] [id number]-[id number]-slacjhyy man presenting with several month history of right shoulder pain no known injury. He has pains in April 2024. He noted when he was and fall league for baseball and throwing and had increased pain. He previously saw physician at [facility] who provided injection the provided 0 relief he has been going to physical therapy and resilience for the past 3 months. He rates his pain at best 0 out of 10 at worst 9.5-10 with a SANE score of 60% endorses night symptoms. He denies any past medical history PSHx does not smoke or drink alcohol. 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 Charlie Ricci MD [address] [place] [address], [address], [place] [facility] 01/30/2025 09:22:37 02/13/2025 text/html ROS as noted in the HPI Martin returns to the office today. He is here to review the results of his MRI. Says his right shoulder feels worse than it did on the previous visit. No past medical history past surgical history significant for vasectomy and appendectomy denies any smoking or alcohol. PRIOR Panda returns to the office today. He has been doing physical therapy. He felt that the injection helped but his pain is slowly returning. He did relieve his nighttime symptoms. He continues to have dysfunction with respect to his right shoulder. Today he rates his pain a 0 out of 10 at best and at worst 8.5-10 SANE score is 50%. His shoulder pain and dysfunction persist despite appropriate nonoperative management PRIOR [id number] man presenting with several month history of right shoulder pain no known injury. He has pains in April 2024. He noted when he was and fall league for baseball and throwing and had increased pain. He previously saw physician at [facility] who provided injection the provided 0 relief he has been going to physical therapy and [facility] for the past 3 months. He rates his pain at best 0 out of 10 at worst 9.5-10 with a SANE score of 60% endorses night symptoms. He denies any past medical history PSHx does not smoke or drink alcohol. 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 Charlie Ricci MD [address] [facility],[address], [id number], [facility] 02/13/2025 10:46:11 06/05/2025 text/html ROS as noted in the HPI Patient presents for their first postoperative visit. They are status post the following procedure 1) Right shoulder open biceps tenodesis, subacromial decompression distal clavicle excision. (05/28/[address] [facility]) Charlie Ricci MD [address], [id number], [employer] [facility] 06/05/2025 12:01:20 07/03/2025 text/html ROS as noted in the HPI The patient returns to the office he is 5 weeks removed from his right open biceps releases distal clavicle excision PRIOR ARPatient presents for their first postoperative visit. They are status post the following procedure1) Right shoulder open biceps tenodesis, subacromial decompression distal clavicle excision. (05/28/[address] [facility]) Charlie Ricci MD [address] [facility],[place] [address], [place], [id number], [employer] [facility] 07/03/2025 11:32:21
--- OUTSIDE RECORDS SUMMARY | 2025-07-24 18:49 | XMS_ITS | Encounter Summary ---
Author Organization [facility] Address [address] [place] [address] Phone Care Team Providers Care Adult High [employer] Instructor Name Role Phone Pcp, Unknown Primary Care Provider Chao Vicente DO Primary Care Provider [phone] Reason for Referral * MRI/CAT Scan - Closed Specialty Diagnoses / Procedures Referred By Florina mera Referred To Contact Radiology Diagnoses Tear of right rotator cuff, unspecified tear extent, unspecified whether traumatic Procedures MRI Shoulder (Right) Chao Sutherland DO Phone: tel: fax: [email or web address] Referral ID Status Reason Start Date Expiration Date Visits Re quested Visits Authorized [id number] Closed 10/23/2019 10/22/2020 1 1 Encounter Details Date Type Department Care Team (Late st Contact Info) Description 10/23/2019 Transcribe Orders Virtual Department [address] [place] [address] Chao Sutherland DO [address] [facility] [place] [address] [place] [address] [email or web address] Tear of right rotator cuff, unspecified tear [...] traumatic documented in this encounter Care Teams Adult High School Instructor Relationship Specialty Start Date End Date Pcp, Unknown PCP - General 10/23/19 10/23/19 Chao Sutherland DO [email or web address] PCP - General Internal Medicine 10/24/19 documented as of this encounter Additional Source Comments The information contained in this document represents components of the legal health record. It is not the complete legal health record.[facility]
--- OUTSIDE RECORDS SUMMARY | 2025-07-24 18:49 | XMS_ITS | Data Portability ---
Author Organization [facility], Main Office Address [address] [place] [address] Care Team Providers Care Vocational Placement Specialist Name Role Phone KAUSHAL LAZAR Primary Care Provider PARAG SCHOFIELD Tankman [phone] [facility] ([facility]) Referring Provider Assessment No assessment recorded. Plan of Treatment Reminders Order Date Submit Date Provider Last Modified By Organization Details Last Modified Time Details Appointments None record ed. Lab lipid panel, serum 2016 017 [employer] [facility], [address], [place] , [place], [address], 7 09:22:05 glucos e, QN [mass/ volume ], serum or plasma 2016 017 [employer] [facility], [address], [address], [place], [address], 7 09:22:05 Referral allerg y referr al 2016 017 kenneth Not available 7 13:39:47 allerg ist & immuno logist referr al - Allerg ic rhinit is no longer reliev ed by nasal steroi ds and antihi stamin es 2014 015 ashley Not available 6 11:19:43 Procedures None record ed. Surgeries None record ed. Imaging XR, knee - Bilate ral knee pain over the last 6-9 months . He denies any trauma . Pain is interm ittent and lasts for days or weeks. Meds don't help. R/o OA 2017 018 nbarrows Not available 8 16:32:32 Medication Orders Augmen tin 875 mg-125 mg tablet 2016 017 [facility]armacy #[id number], [address] [facility] [place], [address], 8 13:49:56 amoxic illin 875 mg-pot assium clavul anate 125 mg tablet 2015 016 [facility]arm[facility] #[id number], [address] [facility] , [place], [address], 8 13:49:56 omepra zole 20 mg capsul e,kate yed releas e [address] [facility]armacy #[id number], [address] [place], [address], 7 15:09:13 Patient TargetsNo targets recorded. Patient Instructions Encounter Date Encounter Id Patient Instructions Last Modified By Organization Details Last Modified Time 03/25/2015 [id number] allergies: care instructions [email or web address] Not available 03/26/2015 06:42:37 managing your allergies: care instructions [email or web address] Not available 03/26/2015 06:42:37 06/03/2016 [id number] Acute Sinusitis: Care Instructions ckrym Not available 06/22/2016 15:42:07 gastroesophageal reflux disease (GERD): care instructions ckrym Not available 06/22/2016 15:42:06 07/12/2017 [id number] allergies: care instructions [email or web address] Not available 07/12/2017 12:16:31 saline nasal washes: care instructions [email or web address] Not available 07/12/2017 12:16:31 Acute Sinusitis: Care Instructions [email or web address] Not available 07/12/2017 12:16:31 nosebleeds: care instructions [email or web address] Not available 07/12/2017 12:16:31 rec probiotic luna pp or slovak yogurt while on abx pmadden Not available 07/12/2017 12:14:58 Follow up if no improvement or if symptoms worsen. I have reviewed the note and agree with the assessment and plan of care. 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 [place] [facility] [address] [address], [place], [address], 12/17/2017 19:27:36 12/18/19 18 12/17/2017 XR, knee No observ ation record ed. [place] [facility] [address] [place] [address] [place] [address], [address], 12/17/2017 19:27:36 Result Notes None recorded. Problems Name Problem SNOMED Code Status Onset Date Resolution Date Notes Provider Name and Address Organization Details Recorded Time Hemorrho ids 10460142 Active Lonnie Paz MD [address], [place], [address] , [facility] 5 12:52:14 Indigest ion 011009411 Active Lonnie Paz MD [address], [place], [address] , [facility] 5 12:52:14 Swelling of hand 534140150 Active Lonnie Paz MD [address] [facility] [address], [place], [address] , [facility] 5 12:52:14 Educatio n Completed 201103/13/2014 RECORDED 05/03/20 12 1:48PM BY MADDIE PEREZ I ANNOTATI ON/ADD[place] DUM Not Available [facility] 4 14:55:31 Verruca plantari s 39822060 Completed 201103/13/2014 IMPRESSI ON: DISCUSSE D OTC TXS, DUCT TAPE TX, MAY CALL PODIATRY IF THEY FAIL TO IMPROVE. ; RECORDED 05/03/20 12 1:48PM BY MADDIE PEREZ I ANNOTATI ON/[place] DUM Not Available [facility] 4 14:55:31 Acute sinusiti s 92072880 Completed 201103/13/2014 IMPRESSI ON: I RECOMMEN DED HE DO SUDAFED, SINUS RINSE, AND FLONASE FOR 2-3 DAYS. IF NOT BETTER, THEN START ANTIBIOT IC. IF DOES NOT IMPROVE IN 1 WEEK, CALL THE OFFICE.; RECORDED 05/03/20 12 1:48PM BY RADHA AYOUB ON/[place] DUM Not Available [facility] 4 14:55:31 Educatio n Completed 201104/05/2014 RECORDED 05/03/20 12 1:48PM BY VASU AYOUBATI ON/[place] DUM Not Available [facility] 4 13:05:06 Verruca plantari s 23020740 Completed 201104/05/2014 IMPRESSI ON: DISCUSSE D OTC TXS, DUCT TAPE TX, MAY CALL PODIATRY IF THEY FAIL TO IMPROVE. ; RECORDED 05/03/20 12 1:48PM BY VASU AYOUBATI ON/ADD[place] DUM Not Available [facility] 4 13:05:07 Acute sinusiti s 57520131 Completed 201104/05/2014 IMPRESSI ON: I RECOMMEN DED HE DO SUDAFED, SINUS RINSE, AND FLONASE FOR 2-3 DAYS. IF NOT BETTER, THEN START ANTIBIOT IC. IF DOES NOT IMPROVE IN 1 WEEK, CALL THE OFFICE.; RECORDED 05/03/20 12 1:48PM BY VASU AYOUBATI ON/ADD[place] DUM Not Available [facility] 4 13:05:07 Educatio n Completed 201104/06/2014 RECORDED 05/03/20 12 1:48PM BY VASU AYOUBATI ON/[place] DUM Not Available [facility] 4 03:52:21 Verruca plantari s 32761640 Completed 201104/06/2014 IMPRESSI ON: DISCUSSE D OTC TXS, DUCT TAPE TX, MAY CALL PODIATRY IF THEY FAIL TO IMPROVE. ; RECORDED 05/03/20 12 1:48PM BY RADHA AYOUB ON/ADDEN DUM Not Available [facility] 4 03:52:21 Acute sinusiti s 89544284 Completed 201104/06/2014 IMPRESSI ON: I RECOMMEN DED HE DO SUDAFED, SINUS RINSE, AND FLONASE FOR 2-3 DAYS. IF NOT BETTER, THEN START ANTIBIOT IC. IF DOES NOT IMPROVE IN 1 WEEK, CALL THE OFFICE.; RECORDED 05/03/20 12 1:48PM BY RADHA AYOUB ON/[place] DUM Not Available [facility] 4 03:52:21 Influenz a vaccine needed [id number] 06 Completed 201103/13/2014 RECORDED 05/05/20 12 1:16PM BY MADDIE PEREZ I, OFFICE VISIT Not Available [facility] 4 14:55:31 Influenz a vaccine needed 25814418821 06 Completed 201104/05/2014 RECORDED 05/05/20 12 1:16PM BY MADDIE PEREZ I, OFFICE VISIT Not Available [facility] 4 13:05:06 Influenz a vaccine needed 75500565621 06 Completed 201104/06/2014 RECORDED 05/05/20 12 1:16PM BY MADDIE PEREZ I OFFICE VISIT Not Available [facility] 4 03:52:21 Carpal tunnel syndrome 68831902 Completed 201203/13/2014 RECORDED 05/29/20 13 10:14AM BY MADDIE PEREZ I ANNOTATI ON/ADDEN DUM Not Available [facility] 4 14:55:30 Carpal tunnel syndrome 34485620 Completed 201204/05/2014 RECORDED 05/29/20 13 10:14AM BY MADDIE PREEZ I ANNOTATI ON/ADD[place] DUM Not Available [facility] 4 13:05:06 Carpal tunnel syndrome 39654111 Completed 201204/06/2014 RECORDED 05/29/20 13 10:14AM BY MADDIE PEREZ I ANNOTATI ON/ADDEN DUM Not Available [facility] 4 03:52:21 Medial epicondy litis 37853674 Completed 201303/13/2014 RECORDED 09/26/19 14 8:01AM BY MADDIE PEREZ I ANNOTATI ON/ADD[place] DUM Not Available [facility] 4 14:55:31 Knee pain Completed 201303/13/2014 RECORDED 09/26/19 14 8:01AM BY MADDIE PEREZ I ANNOTATI ON/ADDEN DUM Not Available [facility] 4 14:55:31 Hypertro phic conditio n of skin 49102981 Completed 201303/13/2014 RECORDED 09/26/19 14 8:01AM BY MADDIE PEREZ I ANNOTATI ON/ADDEN DUM Not Available [facility] 4 14:55:31 Medial epicondy litis 57355226 Completed 201304/05/2014 RECORDED 09/26/19 14 8:01AM BY MADDIE PEREZ I ANNOTATI ON/ADDEN DUM Not Available [facility] 4 13:05:07 Knee pain Completed 201304/05/2014 RECORDED 09/26/19 14 8:01AM BY MADDIE PEREZ I ANNOTATI ON/ADDEN DUM Not Available [facility] 4 13:05:07 Hypertro phic conditio n of skin 45012260 Completed 201304/05/2014 RECORDED 09/26/19 14 8:01AM BY MADDIE PEREZ I, ANNOTATI ON/ADDEN DUM Not Available [facility] 4 13:05:07 Medial epicondy litis 12504870 Completed 201304/06/2014 RECORDED 09/26/19 14 8:01AM BY MADDIE PEREZ I ANNOTATI ON/ADDEN DUM Not Available [facility] 4 03:52:21 Knee pain Completed 201304/06/2014 RECORDED 09/26/19 14 8:01AM BY MADDIE PEREZ I, ANNOTATI ON/ADDEN DUM Not Available [facility] 4 03:52:21 Hypertro phic conditio n of skin 32866434 Completed 201304/06/2014 RECORDED 09/26/19 14 8:01AM BY MADDIE PEREZ I, ANNOTATI ON/ADDEN DUM Not Available [facility] 4 03:52:21 Allergic rhinitis 96356326 Active 2013 Followed by Allergahsan t Kaushal Lazar MD [address] [facility] [address], [place], [address] , [facility] 8 08:22:34 Patient status finding 143406184 Completed 201310/22/2016 RECORDED 03/09/20 14 3:14PM BY IDALIA GAMEZ MA, OFFICE VISIT Kaushal Lazar MD [address] [facility] [address], [place], [address] , [facility] 7 15:13:41 Adult health examinat ion Completed 201310/22/2016 RECORDED 03/09/20 14 3:14PM BY IDALIA GAMEZ MA, OFFICE VISIT Kaushal Lazar MD [address] [facility] [address], [place], [address] , [facility] 7 15:13:52 Impotenc e of organic origin Active 2013 Carly ozuna [place] null, [facility] 7 11:27:33 Malaise and fatigue 973830613 Active 2013 IMPRESSI ON: VIT B12 BORDERLI NE LOW [place] [facility] 7 11:27:37 Testicul ar hypofunc tion 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 GIVEN HIS YOUNG AGE WILL REFER TO ENDOCRIN E. WILL DO TESTING BELOW ,8AM TEST I OFFERED HIM MRI PITUITAR Y NOW, BUT HE WANTS TO SEE ENDOCRIN E FIRST AND JAVON THEM DECIDE IF HE NEEDS THIS [place] [facility] 7 11:27:30 Hypogona dism 16971553 Active 2017 [place] [facility] 8 13:49:37 Pain in right knee Active 2017 Referred to [facility]; patellar subluxat ion Kaushal Lazar MD [address], [place], [address] , [facility] 8 08:56:13 Chronic allergic conjunct ivitis 44886541 Active 2017 Kaushal Lazar MD [address], [place], [address] , [facility] 8 08:22:50 Problem Notes None recorded. Procedures Surgical History Date Name Laterality Status Provider Name and Address Organization Details Recorded Time 5 Unlisted px ant segment eye completed Carly rodriguez MA [facility] 12/15/2017 13:55:47 Imaging Results None recorded. Procedure Notes None recorded. Medical Equipment None Reported. Allergies No known drug allergies Medications Name Sig Start Date Stop Date Status Note LastModified by Organization Details LastModified Time BD Luer-Varun Syringe 3 mL 23 x 1 10/22 completed Not Available Not Available Not Available amoxicill in 500 mg capsule active Not Available Not Available Not Available Proctosol HC 2.5 % rectal cream with applicato r Insert 1 applicat ion twice a day by rectal route as needed for 10 days. active Not Available Not Available No t Available sildenafi l 50 mg tablet DAILY NEEDED ONE HR BEFORE ACTIVITY 06/03 completed RECORDED 03/12/20 14 4:35PM BY TATIANA BARRERA, PHONE ENCOUNTE R; Not Available Not Available Not Available cetirizin e 10 mg tablet Take 1 tablet every day by oral route. active Not Available Not Available No t Available amoxicill in 500 mg tablet TWO TIMES DAILY 03/15 completed RECORDED 03/15/20 14 1:39PM BY IDALIA GAMEZ MA, MEDICATI ON AUTO-DEANDRE CTIVATIO N; Not Available Not Available Not Available amoxicill in 875 mg tablet THREE TIMES DAILY 02/16 completed RECORDED 05/03/20 12 1:48PM BY TATIANA BARRERA, MEDICATI ON AUTO-DEANDRE CTIVATIO N; Not Available Not Available Not Available prednisol one acetate 1 % eye drops,zandra pension active Not Available Not Available Not Available omeprazol e 20 mg capsule,d elayed release TAKE ONE CAPSULE BY MOUTH EVERY DAY FOR 14 DAYS 10/22 completed Not Available Not Available Not Available testoster one cypionate 200 mg/mL intramusc ular oil 06/03 completed Not Available Not Available Not Available fluticaso ne propionat e 50 mcg/actua tion nasal spray,zandra pension [place] 1 spray every day by intranas al route. active Not Available Not Available No t Available amoxicill in 875 mg-potass ium clavulana te 125 mg tablet Take 1 tablet every 12 hours by oral route for 10 days. 12/15 completed Not Available Not Available Not Available Vigamox 0.5 % eye drops active Not Available Not Available Not Available Flonase EACH NOSTRIL ONCE DAILY 10/22 completed RECORDED 09/26/19 14 2:11PM BY KAUSHAL ANDREW MD, OFFICE VISIT; Not Available Not Available Not Available omeprazol e 20 mg tablet,de layed release Take 1 tablet every day by oral route for 14 days. 2014 active Pt said med worked great and would a refill Not Available Not Available Not Available AndroGel 20.25 mg/1.25 gram per pump act. (1.62 %) transderm al gel active Not Available Not Available Not Available Vitals Date Recorded Body height Body weight Body mass index (BMI) Heart rate Oxygen saturation Body temperature Systolic And Diastolic Provider Name and Address Organization Details Last Updated DateTime 7 168.91 cm 94420.9 9 g 33.5 kg/m2 78 /min 98 % 97 [degF] 136/86 mm[Hg] Maddie Taylor [facility] 7 15:08:30 Date Recorded Body height Body temperature Oxygen saturation Heart rate Body mass index (BMI) Body weight Systolic And Diastolic Provider Name and Address Organization Details Last Updated DateTime 8 168.91 cm 98.1 [degF] 97 % 76 /min 34.2 kg/m2 93877.3 6 g 122/78 mm[Hg] Carly sims [facility] 8 13:59:15 Date Recorded Body height Body weight Oxygen saturation Body mass index (BMI) Body temperature Heart rate Systolic And Diastolic Provider Name and Address Organization Details Last Updated DateTime 5 168.91 cm 69178.3 5955 g 98 % 34.2 kg/m2 97.8 [degF] 78 /min 122/78 mm[Hg] Maddie Taylor [facility] 5 16:19:10 Date Recorded Body height Body weight Body mass index (BMI) Heart rate Oxygen saturation Body temperature Systolic And Diastolic Provider Name and Address Organization Details Last Updated DateTime 6 168.91 cm 45471.5 4 g 34.5 kg/m2 99 /min 97 % 97 [degF] 136/82 mm[Hg] Maddie Taylor [facility] 6 14:22:16 Date Recorded Body height Body temperature Oxygen saturation Heart rate Body mass index (BMI) Body weight Systolic And Diastolic Provider Name and Address Organization Details Last Updated DateTime 7 168.91 cm 97.5 [degF] 98 % 70 /min 33.9 kg/m2 39009.1 7 g 124/82 mm[Hg] Carly sims MA [facility] 7 11:32:29 Social History Question Answer Notes LastModified by Organizat ion Details LastModified Time Tobacco Smoking Status Never Smoker Not Available [facility] 07/02/2020 03:36:35 Do You Have An Advance Directive? No None On File [id number] Information not available 07/02/2020 Is Blood Transfusion Acceptable In An Emergency? Yes [id number] Information not available 07/02/2020 What Is Your Level Of Caffeine Consumption? Moderate 1-2 Cups Of Coffee Daily [id number] Information not available 07/02/2020 How Much Tobacco Do You Chew? None [id number] Information not available 07/02/2020 What Type Of Diet Are You Following? REGULAR [id number] Information not available 07/02/2020 Which Illicit Or Recreational Drugs Have You Used? None [id number] Information not available 07/02/2020 Live Alone Or With Others? With Others (Naet) And 2 Kids bsvalentina Information not available 12/15/2017 Do You Take Precautions To Prevent Distracted Driving? Yes Information not available 06/03/2016 How Often Do You Need To Have Someone Help You When You Read Instructions, Pamphlets, Or Other Written Material From Your Doctor Or Pharmacy? Never Information not available 06/03/2016 Have You Served In The ? Yes [email or web address] Information not available 06/03/2016 What Was The Date Of Your Most Recent Tobacco Screening? 12/15/2017 [id number] Information not available 07/02/2020 How Many Children Do You Have? 2 Hodan And Johemi [id number] Information not available 07/02/2020 Do You Use Protection During Sex? No [id number] Information not available 07/02/2020 Seat Belts Used Routinely Yes Information not available 06/03/2016 Are You Sexually Active? Yes [id number] Information not available 07/02/2020 Smoke Alarm In Home Yes Information not available 06/03/2016 At What Age Did You Start Smoking Tobacco? 1 [id number] Information not available 07/02/2020 Are You Passively Exposed To Smoke? No [email or web address] Information not available 06/03/2016 How Much Tobacco Do You Smoke? No [id number] Information not available 07/02/2020 Do You Use Sunscreen Routinely? Yes [id number] Information not available 07/02/2020 How Many Years Have You Smoked Tobacco? 0 [id number] Information not available 07/02/2020 Sex: Unknown Functional Status Question Answer Note LastModified by Organizat ion Details LastModified Time What is your level of alcohol consumption? Occasional very rare [id number] Information not available 07/02/2020 Are you currently employed? Yes [id number] Information not available 07/02/2020 Are you able to care for yourself independently? Yes [id number] Information not available 07/02/2020 What is your occupation? [employer] [email or web address] Information not available 06/03/2016 What is your exercise level? Moderate 3 x week [id number] Information not available 07/02/2020 Mental Status None recorded. Family History Nothing Reported. Medical History No medical history recorded. Immunizations Vaccine Type Date Status Note Provider Nam e and Address Organization Details Recorded Time Influenza, split virus, quadrivalent, preservative 6 completed Maddie carbajal [facility] 10/22/2016 15:09:29 Influenza, split virus, trivalent, preservative 7 completed [place] Richardson [facility] 12/15/2017 13:56:34 Tdap 7 completed Not Available [facility] 09/16/2019 02:21:45 Influenza, split virus, trivalent, preservative 2 completed Not Available [facility] 03/13/2014 13:41:19 Td (adult), 2 Lf tetanus toxoid, preservative free, adsorbed 8 completed Not Available [facility] 03/13/2014 13:41:19 Past Encounters Encounter ID Performer Location Encounter Start Date Encounter Closed Date Diagnosis/Indication Diagnosis SNOMED-CT Code Diagnosis ICD10 Code Diagnosis IMO Codes Diagnosis Note [id number] auto[facility]Comm erce [address] [facility] [place], [place] [address] 11/10/2010 00:00:00 [id number] autoEComm erce [address] [address] [place], [place] [address] 06/09/2011 00:00:00 [id number] autoEComm erce [address] [facility] [place], [place] [address] 02/03/2012 00:00:00 [id number] autoEComm erce [address] [facility] [place], [place] [address] 05/05/2012 00:00:00 [id number] autoEComm erce [address] [facility] [place], [place] [address] 05/29/2013 00:00:00 [id number] autoEComm erce [address] [facility] [place], [place] [address] 09/26/2013 00:00:00 [id number] autoEComm erce [address] [facility] [place], [place] [address] 03/09/2014 00:00:00 [id number] Lonnie Paz MD Main Office [address] [address] [place], [place] [address] 08/29/2014 12:44:45 08/29/2014 13:28:08 Hemorrhoids 04481792 First episode. Approaches for prevention discussed. Call is persistent or worse. Indigestion 650401002 PPI trial advised. Will need further eval if symptoms are persistent /worse. Swelling of hand 792694929 Likely ganglion cyst vs lipoma. Advised to call if symptomati c or enlarging. [id number] Kaushal Lazar MD Main Office [address] [address] [place], [place] [address] 03/25/2015 16:07:08 03/25/2015 16:40:30 Allergic rhinitis 50223129 no longer responding to nasal steroids and antihistam shannan [id number] Kaushal Lazar MD Main Office [address] [address] [place] [address] 06/03/2016 14:03:09 06/03/2016 14:53:31 Gastroesophageal reflux disease 753077439 K21.9 Acute sinusitis 16130864 J01.90 I instructed him to continue with antihistam ine and to use it twice a day for the next 5 days. Also continue with flonase. [id number] Kaushal Lazar MD Main Office [address] [place] [address] 10/22/2016 14:57:01 10/22/2016 15:32:40 Adult health examination 305063210 Z00.00 Will update his immunizati on today. Discussed exercise and he does this 5-6 times a week. No problems with alcohol or drugs. Administra tion of viral vaccine 74282840 Z23 [id number] Cam Mccarthy PA-C Main Office [address] [place] [address] 07/12/2017 11:20:43 07/12/2017 12:17:36 Allergic rhinitis 72316307 J30.9 year long x many yrs - pt requested allergy eval Acute sinusitis 60448916 J01.90 Epistaxis 29777371 R04.0 mild, most likely d/t SE of flonase - rec. use ns spray more often, christopher ac flonase - and also use vas pj c qtip in nares at hs prn [id number] Kaushal Lazar MD Main Office [address] [place] [address] 12/15/2017 13:39:15 12/15/2017 14:47:31 Adult health examination 300795424 Z00.00 No problems with alcohol or drugs. Knee pain 83311338 M25.5 61 M25.562 He will call if this persists and we will do a referral to [facility] Health Concerns Section Related Observation LastModified by Organization Detai ls LastModified Time None Recorded Concern Status LastModified by Organization Details LastModified Time None Recorded Advance Directives Directive N: none on file Payers Insurance Date Sequence Insurance Name Policy Number Policy Funes Covered Member ID Funes Member ID Guarantor Name 03/29/2018 1 [place] [employer] [place]) 112 Kenny Olmedo [id number] Kenny Olmedo Notes Date Note Type Note Provider Name and Address Organization Details Recorded Time 03/25/2015 text/html His allergy symptoms are year round and are getting worse. He has been using flonase and zyrtec but these are not helping. He switched from claritin a couple of months ago because it had stopped be effective. His symptoms are nasal congestion, sinus pain and headache and sneezing. 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 Kaushal Lazar MD [address] [address], [place], [address], [facility] 03/26/2015 06:43:10 06/03/2016 text/html Sinusitis/Allerg yRepor dung by PatientHPIFor associated symptoms, patient reportsnasal discharge from both nostrils,facial pain bilaterally,sinus pain cheek,thick phlegm in throat,nasal discharge, andear fullnessbut reportsno fever,no difficulty breathing, andno headache. For context, patient reportsworse with seasonal allergen exposureandworse around pollenbut reportsno recent upper respiratory infectionandno recent sick contacts. For alleviating factors, patient reportsnothing gives relief. For location, patient reportsmaxillary. For risk factors, patient reportsno current smoking or tobacco useandno history of smoking.Has a h/o allergies and has been using flonase and zyrtec.ROS as noted in the HPI Kaushal Lazar MD [address], [address], [facility] 06/03/2016 15:04:20 10/22/2016 text/html Generic HPI TemplateReported by Patient Overall doing well. No current complaints. 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 Kaushal Lazar MD [address] [address], [place], [address], [facility] 10/23/2016 07:42:38 07/12/2017 text/html + h/o allergies year round - never seen by oceanography teacher - requests eval h/o sinusitis ~ yrly c/o 2+ wks head congest, pur nasal dc no f/c, tooth pain using flonase, zyrtec occ gets small amount of nosebleed Kaushal Lazar MD [address] [facility] [address], [place], [address], [facility] 07/13/2017 10:25:13 12/15/2017 text/html Generic HPI TemplateReported by PatientHe has been having bilateral knee pain over the last 6-9 months. He denies any injury although he played a lot of sports when he was younger. The pain alternates from one knee to the other and he feels it primarily on the outside and back of his knee. He tried OTC NSAIDs w/o much help. Inga acrbajal [facility] 12/16/2017 16:34:10
== END 2025-07-24 15:09 | disposition home or self-care (01) ==
LOC: HO.HMGCLDS 15:08
PROVIDERS: PCP Internal Medicine; Visit Provider Internal Medicine
DX: E34.9 Endocrine disorder, unspecified (principal)
CPT/HCPCS: 36415; 84403

== ENCOUNTER 2025-08-10 14:40 | Outpatient (REF) | payer OTHER, SELFPAY ==
--- OUTSIDE RECORDS SUMMARY | 2024-06-30 04:40 | XMS_ITS ---
Author Organization [facility] Address [address] [place] [id number] Care Team Providers Care Exhibits Manager Name Role Phone Chao Sutherland Primary Care Provider Ziggy Groves [phone] REASON FOR VISIT gerd,heartburn Problems Problem Type SNOMED Code ICD Code Onset Dates Problem Status W/U Status Risk Notes Problem Gastro-esophagea l reflux disease without esophagitis (335673303) Gastro-esophage al reflux disease without esophagitis (K21.9) Active confirmed Encounters Encounter Location Date Provider Diagnosis [facility] [place] Outpatient [address] [place] [phone] 06/30/2024 Ziggy Lopez Gastro-esophageal reflux disease without esophagitis K21.9 ; Hiatal hernia K44.9 and Heartburn R12 Assessments Encounter Date Diagnosis (ICD Code) Assessment Notes Treatment Notes Treatment Clinical Notes Section Notes 06/30/2024 Gastro-esophagea l reflux disease without esophagitis (ICD-10 - K21.9) 06/30/2024 Hiatal hernia (ICD-10 - K44.9) 06/30/2024 Heartburn (ICD-10 - R12) Plan Of Treatment No Information Progress Notes * ANTHONY ROBERSONOB: 0 (45 yo M)Acc No.[id number]:06/30/2024 EGD/MAC Patient: JOSE ALFREDO DIAZ Provider: Yeimy Lopez MD :1980 A ge:44 Y S ex:Male Date:06/30/2024 Address:[address] [place] [address] Pcp:Chao Sutherland Subjective: * Chief Complaints: * G erd,heartburn Assessment: * Assessment: 1. G hakeem-esophageal reflux disease without esophagitis - K21.9 (Primary) 2 .?Hiatal hernia - K44.9 3 . H eartburn - R12 Plan: * Procedure Codes: 4 3239 UPPER GI ENDOSCOPY, BIOPSY Billing Information: * Procedure Codes: 08694 UPPER GI ENDOSCOPY, BIOPSY. * The named appointment provid er may or may not be the originator of this progress note, and it is not deemed complete until electronically signed by the appointment provider. Sign off status: Pending * Provider: Yeimy Lopez MD Date: 08/30/2023 Generated for Zacarias malave/Lavelle/Rachaelitting on: 10/11/2024 07:50 PM EST
--- OUTSIDE RECORDS SUMMARY | 2025-08-10 19:50 | XMS_ITS | Continuity of Care Document ---
Author Organization [facility], [facility] Address [address] [place] [address] [place] [address] Assessment No assessment recorded. Plan of Treatment [...] Details Recorded Time Pain of left testicle 440447426342 16039 Active 2021 Chao Sutherland DO [address] [place] [address], [address], [facility] 2 12:09:34 Fatigue 54931964 Active 2021 Chao Sutherland DO [address] [place] [address], [address], [facility] 2 12:11:04 Low back pain 987870606 Active 2021 Chao Sutherland DO [address] [place] [address], [address], 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 4 Active 2021 Chao Sutherland, DO [address] [place] [address], [address], [facility] 5 23:13:58 Lumbago with sciatica 262872684 Active 2021 Chao Sutherland, DO [address] [place] [address], [address], [facility] 2 15:09:59 Lumbago with sciatica 141105806 Active 2021 Chao Sutherland DO [address] [place] [address], [address], [facility] 2 15:10:15 Vitamin D deficienc y 17421905 Active 2022 Chao Sutherland DO [address] [place] [address], [address], [facility] 3 11:12:06 Esophagea l dysphagia 15300175 Active 2023 Chao Sutherland DO [address] [place] [address], [address], [facility] 4 12:26:36 Esophagea l dysmotili ty 536195481 Active 2023 TATIANA JIMENEZ [address] [place] [address], [address], [facility] 4 08:45:51 Injury of tendon of the rotator cuff of shoulder 331672347 Active 2023 Chao Sutherland DO [address] [place] [address], [address], [facility] 4 22:48:12 Injury of tendon of the rotator cuff of shoulder 276044619 Active 2023 Chao Sutherland DO [address] [place] [address], [address], [facility] 5 09:42:27 Partial thickness rotator cuff tear 959349526 Active 2023 Chao Sutherland DO [address] [place], [address], [facility] 4 22:34:23 Rupture of rotator cuff of right shoulder 867721251878 81509 Active 2023 Chao Sutherland DO [address] [place], [address], [facility] 4 15:57:54 Problem Notes None recorded. Procedures Surgical History Date Name Laterality Status Provider Name and Address Organization Details Recorded Time 020 Corticosteroid Injection completed Chao Sutherland DO [address] [place], [address], [facility] 11/08/2019 11:35:48 Appendectomy completed Kamini [facility] 10/23/2019 11:51:58 Vasectomy completed Kamini Aguirre [facility] 10/23/2019 11:52:08 Imaging Results [...] Not Available Not Available Not Available omeprazole 20 mg capsule,del ayed release Take 1 capsule every day by oral route for 30 days. 2024 active Not Available Not Available [...] Address Organization Details Last Updated DateTime 05/23/2025 121058.48 g 97 % 87 /min 118/72 mm[Hg] JEROME WEEKS [facility] 05/23/2025 09:26:50 Social History Question Answer Notes LastModified by Organizat ion Details LastModified Time Tobacco Smoking Status Never Smoker Kamini carbajal [place] [facility] 10/23/2019 11:47:58 What Is Your [...] mcg/0.3 mL dose 1 completed Jessica carbajal [facility] 05/12/2021 09:39:34 COVID-19, mRNA, LNP-S, PF, 30 mcg/0.3 mL dose 1 completed Jessica carbajal [facility] 05/12/2021 09:39:40 Influenza, split virus, quadrivalent, preservative 1 completed Chao Sutherland DO [address] [place] [address], [address], [facility] 12/02/2021 11:55:50 Influenza, split virus, quadrivalent, preservative 9 completed Kamini carbjaal [facility] 10/23/2019 11:47:48 Past Encounters Encounter ID Performer Location Encounter Start Date Encounter Closed Date Diagnosis/Indication Diagnosis SNOMED-CT Code Diagnosis ICD10 Code Diagnosis IMO Codes Diagnosis Note [id number] Chao Sutherland DO [facility] [address] [facility] [place] [address] 05/23/2025 09:20:40 05/23/2025 09:46:37 Pre-surgery evaluation 048757357 Z01.818 Per the 2017 ACC cardiac risk stratifica tion (revised) this patient poses an extremely low risk for the proposed procedure and is cleared at this time. He is on no medication s . Injury of tendon of the rotator cuff of shoulder 751657200 S46.001D noted will have surgical repair this wednesday Health Concerns Section Related Observation LastModified by Organization Detmegan ls LastModified Time None Recorded Concern Status LastModified by Organization Details LastModified Time None Recorded Payers Encounter Date Sequence Insurance Name Policy Number Policy Funes Covered Member ID Funes Member ID Guarantor Name 05/23/2025 1 [facility] () Kenny Olmedo [id number] Kenny Olmedo Notes Date Note Type Note [...] other constitutional signs Chao Sutherland DO [address] [facility], [place], [address], [facility] 05/23/2025 09:42:40
--- OUTSIDE RECORDS SUMMARY | 2025-08-10 19:50 | XMS_ITS | Continuity of Care Document ---
Author Organization [place] [facility] Magda Brewer [place] [place] Address [address] [facility] [address] [place] [address] Care Team Providers Care Manufacturing Management Associate Name Role Phone BARBY VAUGHN Primary Care Provider BARBY VAUGHN Referring Provider BARBY VAUGHN Primary Care Provider Assessment Encounter Date Assessment Date Assessment LastModified by Organization Details LastModified Time 06/05/2025 06/05/2025 IMPRESSION: status post RIGHT Open Biceps Tenodesis (Date of surgery 05/28/2025, at [facility] PLAN: Martin is doing well. At [...] Organization Details Recorded Time Disorder of shoulder 122539264 Active 025 Charlie Ricci MD [address], [place], [address] , [place] [facility] 5 10:06:55 Disorder of shoulder 898248640 Active 025 Charlie Ricci MD [address], [place], [address] , [place] [facility] 5 10:07:02 Injury of superior glenoid labrum of shoulder joint 760914969 Active 025 Charlie Ricci MD [address], [place], [address] , [place] [facility] 5 10:07:30 Injury of superior glenoid labrum of shoulder joint 611167718 Active 025 Charlie Ricci MD [address], [place], [address] , [place] [facility] 5 10:38:06 Problem Notes None recorded. Procedures Surgical History Date Name Laterality Status Provider Name and Address Organization Details Recorded Time 05/28/20 25 SHOULDER ARTHROSCOPY WITH SLAP LESION REPAIR (SURG) completed Kely López [facility] 05/29/2025 09:27:46 11/29/19 25 AJR Subacromial Inj completed Charlie Ricci MD [address], [place], [address], [facility] 11/28/2024 10:08:17 Imaging Results None recorded. [...] use any illicit or recreational drugs? No [email or web address] Information not available 11/28/2024 Do you or have you ever used any other forms of tobacco or nicotine? No [email or web address] Information not available 11/28/2024 What is your level of alcohol consumption? None [email or web address] Information not available 11/28/2024 Mental Status None recorded. Family History Nothing Reported. Medical History No medical history recorded. Past Encounters Encounter ID Performer Location Encounter Start Date Encounter Closed Date Diagnosis/Indication Diagnosis SNOMED-CT Code Diagnosis ICD10 Code Diagnosis IMO Codes Diagnosis Note [id number] MD GHAZAL Fleming [address] [address] 06/05/2025 11:06:35 06/05/2025 11:58:29 Postoperative visit 262152835 Z48.89 [id number] Right shoulder open biceps tenodesis distal clavicle excision SA D date of surgery 05/28/2025 Health Concerns Section Related Observation LastModified by Organization Detai ls LastModified Time None Recorded Concern Status LastModified by Organization Details LastModified Time None Recorded Payers Encounter Date Sequence Insurance Name Policy Number Policy Funes Covered Member ID Funes Member ID Guarantor Name 06/05/2025 1 [facility] [place] Kenny Olmedo [id number] Kenny Olmedo Notes Date Note Type Note Provider Name and Address Organization Details Recorded Time 06/05/2025 text/html ROS as noted in the HPI Patient presents for their first postoperative visit. They are status post the following procedure 1) Right shoulder open biceps tenodesis, subacromial decompression distal clavicle excision. (05/28/2025 at [facility]) Charlie Ricci MD [address] [address], [place], [address], [place] [facility] 06/05/2025 12:01:20
--- OUTSIDE RECORDS SUMMARY | 2025-08-10 19:50 | XMS_ITS | Clinical Summary ---
Author Organization [facility] Address [address] [place] [address] Phone Care Team Providers Care First Grade Teacher Name Role Phone Unavailable Primary Care Provider Unavailabl e Allergies No known active allergies Medications cetirizine (ZyrTEC) 10 mg tabletIndication s:allergic rhinitis,seasona l allergic rhinitis Take 1 tablet (10 mg total) by mouth 1 (one) time each day. Active Encounters Date Type Department Care Team Description 05/28/2025 11:12 AM EDT Anesthesia Event [facility] [place] [address] [place] [phone] Joao Stacy DO Gordon, Alanna, DO 05/28/2025 9:30 AM EDT - 05/28/2025 1:00 PM EDT Surgery [facility] [address] [place] [phone] Charlie Ricci MD RIGHT SHOULDER DIAGNOSTIC ARTHROSCOPY [00508 (CPT )] 05/28/2025 7:35 AM EDT - 05/28/2025 4:05 PM EDT Hospital Encounter [facility] [place] [address] [place] [phone] Charlie Ricci MD Discharge Disposition: Home [...] this topic Medical Devices Implanted Type Area Header Machine Operator Device Identifier Shelf Expiration Date Model / Serial / Lot [place] Implant Bicep Fibertak Set - Sna - [id number] Implanted:Qty : 1 on 05/28/2025 by Charlie Ricci MD at [facility] Internal and External Fixation Right: Shoulder [employer] 12/27/2025 [id number] / NA / [id number] Procedures Procedure Name Priority Date/Time Associated Diagnosis Comments OXYGEN THERAPY, ADULT Routine 05/28/2025 1:29 PM EDT TH AN ENDOTRACHEAL(NO CHARGE) Routine 05/28/2025 11:54 AM EDT CA TENODESIS LONG TENDON OF BICEPS 05/28/2025 11:00 AM EDT Superior glenoid labrum lesion of right shoulder, initial encounter Case Notes BEACH CHAIR, SATISH MELOION, [employer] ANCHORSArthrex rep confirmed 05/25 for case on 05/28- LL CA ARTHROSCOPY SHOULDER SURGICAL BICEPS TENODESIS 05/28/2025 11:00 AM EDT Superior glenoid labrum lesion of right shoulder, initial encounter Case Notes BEACH CHAIR, SATISH MELOION, [employer] ANCHORSArthrex rep confirmed 05/25 for case on 05/28- LL CA SURGICAL ARTHROSCOPY SHOULDER EXTENSIVE DEBRIDEMENT 3+ STRUCTURES 05/28/2025 11:00 AM EDT Superior glenoid labrum lesion of right shoulder, initial encounter Case Notes BEACH CHAIR, LORIE SCASHLEYION, [employer] ANCHORSArthrex rep confirmed 05/25 for case on 05/28- LL CA ARTHROSCOPY SHOULDER SURGICAL CAPSULORRHAPHY 05/28/2025 11:00 AM EDT Superior glenoid labrum lesion of right shoulder, initial encounter Case Notes BEACH CHAIR, MEGHNAER, GRISELDA, ARTH[employer]X ANCHORSArthrex rep confirmed 05/25 for [...] during procedure: OR Anesthesiologist: Joao Stacy DO Resident/BOTTOM TURNER: Kathleen Aldridge DO Performed: resident/BOTTOM TURNER/CAA Performed by: Kathleen Aldridge DO Authorized by: [...] monitoring: continuous pulse ox, heart rate and pharmaceutical compounding supervisor (NIBP) Block type: interscalene (Infraclavicular) Laterality: right [...] - Final from Last 3 Months Insurance [facility]
--- OUTSIDE RECORDS SUMMARY | 2025-08-10 19:50 | XMS_ITS | Clinical Summary ---
Author Organization [facility] Address [address] [facility] [address] [facility] [address] [place] [address] Phone Care Team Providers Care Applied Psychology Chair Name Role Phone Abysupriya Chao Tova BRAGG Primary Care Provider [phone] Social History Tobacco Use Types Packs/Day Years [...] file Medical Devices Not on file Insurance [facility] [address] [place] [address] [address] [place] [address] [place] [address] [place] [address] [place] [address] [place] [address] [place] [address] [place] [address] [facility] Care Teams Applied Psychology Chair Relationship Specialty Start Date End Date Chao Sutherland DO [email or web address] PCP - General Internal Medicine 10/24/19 Additional Source Comments The information contained in this document represents components of the legal health record. It is not the complete legal health record.[facility]
--- OUTSIDE RECORDS SUMMARY | 2025-08-10 19:50 | XMS_ITS | Data Portability ---
Author Organization [place] [facility] Magda Brewer [facility] [place] Address [address] [place] [address] Care Team Providers Care Director Of Epidemiology Name Role Phone BARBY VAUGHN Primary Care [...] Biceps Tenodesis (Date of surgery 05/28/2025, at [facility] PLAN: Martin is doing well. [...] Biceps Tenodesis (Date of surgery 05/28/2025, at [facility] PLAN: Patient is doing well. Patient [...] corticost eroid injection , positive Clemente, positive Licking positive Malka test evaluate for rotator cuff tear full-thic kness, labral injury superior labrum posterior labrum 2024 025 RAN Not available 02/12/2025 12:23:26 Medication Orders meloxicam 15 mg tablet 2024 025 [id number], [address], [place], [id number], 11/28/2024 10:07:29 lidocaine (PF) 10 mg/mL (1 %) injection solution 2024 025 [email or web address] Not available 02/13/2025 09:00:57 Marcaine (PF) 0.5 % (5 mg/mL) injection solution 2024 025 [email or web address] Not available 02/13/2025 09:01:01 triamcino lone acetonide 40 mg/mL suspensio n for injection 2024 025 [email or web address] Not available 02/13/2025 09:01:03 Patient TargetsNo targets recorded. Patient Instructions Encounter Date Encounter Id Patient Instructions Last Modified By Organization Details Last Modified Time 11/28/2024 [id number] AAOS Rotator Cuf f Conditioning Not available [...] observ ation record ed. [email or web address] [facility] [place] [address], [address], 11/23/2024 09:17:08 11/24/1905/05/2024 XR, shoul radha, 2 or more view No observ ation record ed. [email or web address] [facility] [address] [facility], [place], [address], 11/23/2024 09:17:54 02/06/2002/05/2025 MRI, shoul radha, w/o contr ast No observ ation record ed. [email or web address] Not Available 2024 12:23:26 Result Notes None recorded. Problems Name Problem SNOMED Code Status Onset Date Resolution Date Notes Provider Name and Address Organization Details Recorded Time Disorder of shoulder 578979488 Active 025 Charlie Ricci MD [address], [place], [address] , [facility] [place], [facility] 5 10:06:55 Disorder of shoulder 322329404 Active 025 Charlie Ricci MD [address], [place], [address] , [facility] [place], [facility] 5 10:07:02 Injury of superior glenoid labrum of shoulder joint 689896812 Active 025 Charlie Ricci MD [address], [place], [place], [address] , [facility] [place], P 5 10:07:30 Injury of superior glenoid labrum of shoulder joint 551227653 Active 025 Charlie Ricci MD [address], [place], [place], [address] , [facility] [place], P 5 10:38:06 Problem Notes None recorded. Procedures Surgical History Date Name Laterality Status Provider Name and Address Organization Details Recorded Time 05/28/20 25 SHOULDER ARTHROSCOPY WITH SLAP LESION REPAIR (SURG) completed Kely López [facility], P 05/29/2025 09:27:46 11/29/19 25 AJR Subacromial Inj completed Charlie Ricci MD [address], [facility] [place], [address], [facility] [place], P 11/28/2024 10:08:17 Imaging Results None recorded. [...] Updated DateTime 11/28/2024 170.18 cm 34.5 kg/m2 37271.[address] [facility] [place], 11/28/2024 12:03:27 Social History None recorded. Functional Status Question Answer Note LastModified by Organizat ion Details LastModified Time Do you use any illicit or recreational drugs? No Information not available 11/28/2024 Do you or have you ever used any other forms of tobacco or nicotine? No [email or web address] Information not available 11/28/2024 What is your level of alcohol consumption? None [email or web address] Information not available 11/28/2024 Mental Status None recorded. Family History Nothing Reported. Medical History No medical history recorded. Past Encounters Encounter ID Performer Location Encounter Start Date Encounter Closed Date Diagnosis/Indication Diagnosis SNOMED-CT Code Diagnosis ICD10 Code Diagnosis IMO Codes Diagnosis Note [id number] MD GHAZAL Fleming [address] [place] [address] 11/28/2024 09:11:17 11/28/2024 10:05:16 Disorder of shoulder 050765384 M25.819 921595 Injury of superior glenoid labrum of shoulder joint 085674442 S43.431A [id number] MD GHAZAL Fleming [address] [address] 01/30/2025 09:02:57 01/30/2025 09:20:48 Injury of superior glenoid labrum of shoulder joint 687541506 S43.431A [id number] MD GHAZAL Fleming [address] [place] [address] 02/13/2025 08:34:16 02/13/2025 09:35:11 Disorder of shoulder 049682093 M25.819 144660 Injury of superior glenoid labrum of shoulder joint 011494116 S43.431A [id number] MD GHAZAL [place] [facility] [address] [facility] [address] [place] [address] 06/05/2025 11:06:35 06/05/2025 11:58:29 Postoperative visit 574037391 Z48.89 [id number] Right shoulder open biceps tenodesis distal clavicle excision SA D date of surgery 05/28/2025 [id number] MD GHAZAL Fleming [facility] [address] [facility] [address] [place] [address] 07/03/2025 11:08:24 07/03/2025 11:33:15 Postoperative visit 643006805 Z48.89 [id number] Right shoulder open biceps tenodesis distal clavicle excision SA D date of surgery 05/28/2025 Health Concerns Section Related Observation LastModified by Organization Detai ls LastModified Time None Recorded Concern Status LastModified by Organization Details LastModified Time None Recorded Advance Directives Directive None Recorded Payers Insurance Date Sequence Insurance Name Policy Number Policy Funes Covered Member ID Funes Member ID Guarantor Name 06/12/2025 1 [facility] - [facility] () Kenny Olmedo [id number] Kenny Olmedo Notes Date Note Type Note Provider Name and Address Organization Details Recorded Time 11/28/2024 text/html ROS as noted in the HPI 44-year-old tuqkw-feyl-kshubloj man presenting with several month history of right shoulder pain no known injury. He has pains in April 2024. He noted when he was and fall league for baseball and throwing and had increased pain. He previously saw physician at [facility] who provided injection the provided 0 relief he has been going to physical therapy and resilience for the past 3 months. He rates his pain at best 0 out of 10 at worst 9.5-10 with a SANE score of 60% endorses night symptoms. He denies any past medical history PSHx does not smoke or drink alcohol. 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 Charlie Ricci MD [address] [address], [place], [address], [facility] [place], [facility] 11/28/2024 10:11:42 01/30/2025 text/html ROS as [...] dysfunction persist despite appropriate nonoperative management PRIOR [id number]-[id number] dfjsh-rgdn-eseqplol man presenting with several month history of right shoulder pain no known injury. He has pains in April 2024. He noted when he was and fall league for baseball and throwing and had increased pain. He previously saw physician at [facility] who provided injection the provided 0 relief he has been going to physical therapy and resilience for the past 3 months. He rates his pain at best 0 out of 10 at worst 9.5-10 with a SANE score of 60% endorses night symptoms. He denies any past medical history PSHx does not smoke or drink alcohol. 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 Charlie Ricci MD [address] [place] [address], [address], [place] [facility], [facility] 01/30/2025 09:22:37 02/13/2025 text/html ROS as [...] dysfunction persist despite appropriate nonoperative management PRIOR [id number] wlrug-xyre-vcbskqcd man presenting with several month history of right shoulder pain no known injury. He has pains in April 2024. He noted when he was and fall league for baseball and throwing and had increased pain. He previously saw physician at [facility] who provided injection the provided 0 relief he has been going to physical therapy and resilience for the past 3 months. He rates his pain at best 0 out of 10 at worst 9.5-10 with a SANE score of 60% endorses night symptoms. He denies any past medical history PSHx does not smoke or drink alcohol. 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 Charlie Ricci MD [address] [facility],[address], [address], [facility] [place], P 02/13/2025 10:46:11 06/05/2025 text/html ROS as noted in the HPI Patient presents for their first postoperative visit. They are status post the following procedure 1) Right shoulder open biceps tenodesis, subacromial decompression distal clavicle excision. (05/28/2025 at [facility]) Charlie Ricci MD [address], [address], [facility] [place], P 06/05/2025 12:01:20 07/03/2025 text/html ROS as noted in the HPI The patient returns to the office he is 5 weeks removed from his right open biceps releases distal clavicle excision PRIOR ARPatient presents for their first postoperative visit. They are status post the following procedure1) Right shoulder open biceps tenodesis, subacromial decompression distal clavicle excision. (05/28/2025 at [facility]) Charlie Ricci MD [address] [facility],[address] [address], [place], [address], [facility] [place], P 07/03/2025 11:32:21
--- OUTSIDE RECORDS SUMMARY | 2025-08-10 19:50 | XMS_ITS | Continuity of Care Document ---
Author Organization [facility] Magda Brewer [facility] [place] Address [address] [facility] [address] [place] [address] Care Team Providers Care Decision Support Analyst Name Role Phone BARBY VAUGHN Primary Care Provider BARBY VAUGHN Referring Provider BARBY VAUGHN Primary Care Provider Assessment Encounter Date Assessment Date Assessment LastModified by Organization Details LastModified Time 07/03/2025 07/03/2025 IMPRESSION: status post RIGHT Open Biceps Tenodesis (Date of surgery 05/28/2025, at [facility] PLAN: Patient is doing well. 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 Procedures Surgical History Date Name Laterality Status Provider Name and Address Organization Details Recorded Time 05/28/20 25 SHOULDER ARTHROSCOPY WITH SLAP LESION REPAIR (SURG) completed Kely López [facility] 05/29/2025 09:27:46 11/29/19 25 AJR Subacromial Inj completed Charlie Ricci MD [address], [facility] [place], [address], [facility] [place], P 11/28/2024 10:08:17 Imaging Results None recorded. [...] other forms of tobacco or nicotine? No [email or web address] Information not available 11/28/2024 What is your level of alcohol consumption? None Information not available 11/28/2024 Mental Status None recorded. Family History Nothing Reported. Medical History No medical history recorded. Past Encounters Encounter ID Performer Location Encounter Start Date Encounter Closed Date Diagnosis/Indication Diagnosis SNOMED-CT Code Diagnosis ICD10 Code Diagnosis IMO Codes Diagnosis Note [id number] MD GHAZAL Fleming [facility] [address] [address] 06/05/2025 11:06:35 06/05/2025 11:58:29 Postoperative visit 109607104 Z48.89 [id number] Right shoulder open biceps tenodesis distal clavicle excision SA D date of surgery 05/28/2025 [id number] MD GHAZAL Fleming [facility] [address] [address] 07/03/2025 11:08:24 07/03/2025 11:33:15 Postoperative visit 432592457 Z48.89 28476375 Right shoulder open biceps tenodesis distal clavicle excision SA D date of surgery 05/28/2025 Health Concerns Section Related Observation LastModified by Organization Detai ls LastModified Time None Recorded Concern Status LastModified by Organization Details LastModified Time None Recorded Payers Encounter Date Sequence Insurance Name Policy Number Policy Funes Covered Member ID Funes Member ID Guarantor Name 07/03/[address] [facility] - [facility] () Kenny Olmedo [id number] Kenny Olmedo Notes Date Note Type Note [...] subacromial decompression distal clavicle excision. (05/28/2025 at [facility]) Charlie Ricci MD [address] [place] [address], [address], [place] [facility] [place], [facility] 07/03/2025 11:32:21
--- OUTSIDE RECORDS SUMMARY | 2025-08-10 19:50 | XMS_ITS | Patient Health Record ---
Author Organization [facility] Address [address] [place] [address] Care Team Providers Care Book Or Script Editor Name Role Phone Ena Chao Primary Care Provider Ziggy Groves [phone] Allergies Allergen (clinical drug ingredient) Drug/Non Drug [...] Notes Problem Gastro-esophageal reflux disease without esophagitis (037831969) Gastro-esophag eal reflux disease without esophagitis (K21.9) Active confirmed Problem Heartburn (15382432) Heartburn (R12) Active confirmed Problem Gastroesophageal reflux disease (disorder) (401591705) Chronic GERD (K21.9) Active confirmed Plan Of Treatment Pending Test Test Name Order Date Pathology 06/30/2024 Future Test Test Name Order Date UPPER GI ENDOSCOPY 03/10/2024 Insurance Providers Payer Name Payer Address Payer Phone Subscriber Number Group Number Insured Name Patient Relationship to Insured Coverage Start Date Coverage End Date [facility] Attn Claims [address] [place] [address] [id number] JOSE ALFREDO ROBERSON Self - patient is the insured Medical (General) History Medical History History ICD Code Denies GA,DM,CVA,Lung disease,renal dise ase GERD Surgical History Surgery Date(Month/Year)
--- OUTSIDE RECORDS SUMMARY | 2025-08-10 19:50 | XMS_ITS | Data Portability ---
Author Organization [facility], Main Office Address [address] [place] [address] Care Team Providers Care Double Needle Operator Lockstitch Name Role Phone KAUSHAL LAZAR Primary Care Provider PARAG SCHOFIELD Air Conditioning Technician [phone] [facility] ERAPY (HENRY HARRIS) Referring Provider Assessment No assessment recorded. Plan of Treatment Reminders Order Date Submit Date Provider Last Modified By Organization Details Last Modified Time Details Appointments None record ed. Lab lipid panel, serum 2016 017 A Green Night's SleepcolinSense of Skin [facility], [address], [place] , [place], [address], 7 09:22:05 glucos e, QN [mass/ volume ], serum or plasma 2016 017 Fluid [facility], [address], [address], [place], [address], 7 09:22:05 Referral allerg y referr al [...] tin 875 mg-125 mg tablet 2016 017 [facility] #[id number], [address] [facility] [place], [address], 8 13:49:56 amoxic illin 875 mg-pot assium clavul anate 125 mg tablet 2015 016 [facility][id number], [address] [facility] , [place], [address], 8 13:49:56 omepra zole 20 mg capsul e,kate yed releas e 2015 016 kschultzki [facility] #[id number], [address] [place], [address], 7 15:09:13 Patient TargetsNo targets recorded. Patient Instructions Encounter Date Encounter Id Patient Instructions Last Modified By Organization Details Last Modified Time 03/25/2015 [id number] allergies: care instructions [email or web address] Not available 03/26/2015 06:42:37 managing your allergies: care instructions acennerazzo Not available 03/26/2015 06:42:37 06/03/2016 [id number] Acute Sinusitis: Care Instructions ckrym Not available 06/22/2016 15:42:07 gastroesophageal reflux disease (GERD): care instructions ckrym Not available 06/22/2016 15:42:06 07/12/2017 [id number] allergies: care instructions [email or web address] Not available 07/12/2017 12:16:31 saline nasal washes: care instructions Not available 07/12/2017 12:16:31 Acute Sinusitis: Care Instructions [email or web address] Not available 07/12/2017 12:16:31 nosebleeds: care instructions [email or web address] Not available 07/12/2017 12:16:31 rec probiotic luna pp or armenian yogurt while on abx pmadden Not available 07/12/2017 12:14:58 Follow up if no improvement or if symptoms worsen. I have reviewed the note and agree with the assessment and plan of care. 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 WENONAH [facility] [address] [address], [place], [address], 12/17/2017 19:27:36 12/18/19 18 12/17/2017 XR, knee No observ ation record ed. WENONAH [facility] [address] [place] [address] [place] [address], [address], 12/17/2017 19:27:36 Result Notes None recorded. Problems Name Problem SNOMED Code Status Onset Date Resolution Date Notes Provider Name and Address Organization Details Recorded Time Hemorrho ids 40363543 Active Lonnie Paz MD [address], [place], [address] , [facility] 5 12:52:14 Indigest ion 373265524 Active Lonnie Paz MD [address], [place], [address] , [facility] 5 12:52:14 Swelling of hand 503602996 Active Lonnie Paz MD [address] [facility] [address], [place], [address] , [facility] 5 12:52:14 Educatio n Completed 201103/13/2014 RECORDED 05/03/20 12 1:48PM BY MADDIE PEREZ I ANNOTATI ON/ADDEN DUM Not Available [facility] 4 14:55:31 Verruca plantari s 39998495 Completed 201103/13/2014 IMPRESSI ON: DISCUSSE D OTC TXS, DUCT TAPE TX, MAY CALL PODIATRY IF THEY FAIL TO IMPROVE. ; RECORDED 05/03/20 12 1:48PM BY MADDIE PEREZ I ANNOTATI ON/ADDEN DUM Not Available [facility] 4 14:55:31 Acute sinusiti s 30721927 Completed 201103/13/2014 IMPRESSI ON: I RECOMMEN DED HE DO SUDAFED, SINUS RINSE, AND FLONASE FOR 2-3 DAYS. IF NOT BETTER, THEN START ANTIBIOT IC. IF DOES NOT IMPROVE IN 1 WEEK, CALL THE OFFICE.; RECORDED 05/03/20 12 1:48PM BY RADHA AYOUB ON/ADDEN DUM Not Available [facility] 4 14:55:31 Educatio n Completed 201104/05/2014 RECORDED 05/03/20 12 1:48PM BY VASU AYOUBATI ON/ADDEN DUM Not Available [facility] 4 13:05:06 Verruca plantari s 85613808 Completed 201104/05/2014 IMPRESSI ON: DISCUSSE D OTC TXS, DUCT TAPE TX, MAY CALL PODIATRY IF THEY FAIL TO IMPROVE. ; RECORDED 05/03/20 12 1:48PM BY VASU AYOUBATI ON/ADDEN DUM Not Available [facility] 4 13:05:07 Acute sinusiti s 77907405 Completed 201104/05/2014 IMPRESSI ON: I RECOMMEN DED HE DO SUDAFED, SINUS RINSE, AND FLONASE FOR 2-3 DAYS. IF NOT BETTER, THEN START ANTIBIOT IC. IF DOES NOT IMPROVE IN 1 WEEK, CALL THE OFFICE.; RECORDED 05/03/20 12 1:48PM BY VASU AYOUBATI ON/ADDEN DUM Not Available [facility] 4 13:05:07 Educatio n Completed 201104/06/2014 RECORDED 05/03/20 12 1:48PM BY VASU AYOUBATI ON/ADDEN DUM Not Available [facility] 4 03:52:21 Verruca plantari s 76971911 Completed 201104/06/2014 IMPRESSI ON: DISCUSSE D OTC TXS, DUCT TAPE TX, MAY CALL PODIATRY IF THEY FAIL TO IMPROVE. ; RECORDED 05/03/20 12 1:48PM BY RADHA AYOUB ON/ADDEN DUM Not Available [facility] 4 03:52:21 Acute sinusiti s 81403608 Completed 201104/06/2014 IMPRESSI ON: I RECOMMEN DED HE DO SUDAFED, SINUS RINSE, AND FLONASE FOR 2-3 DAYS. IF NOT BETTER, THEN START ANTIBIOT IC. IF DOES NOT IMPROVE IN 1 WEEK, CALL THE OFFICE.; RECORDED 05/03/20 12 1:48PM BY RADHA AYOUB ON/ADDEN DUM Not Available [facility] 4 03:52:21 Influenz a vaccine needed 54873119897 06 Completed 201103/13/2014 RECORDED 05/05/20 12 1:16PM BY MADDIE PEREZ I, OFFICE VISIT Not Available [facility] 4 14:55:31 Influenz a vaccine needed 51067935279 06 Completed 201104/05/2014 RECORDED 05/05/20 12 1:16PM BY MADDIE PEREZ I, OFFICE VISIT Not Available [facility] 4 13:05:06 Influenz a vaccine needed 45692886085 06 Completed 201104/06/2014 RECORDED 05/05/20 12 1:16PM BY MADDIE PEREZ I OFFICE VISIT Not Available [facility] 4 03:52:21 Carpal tunnel syndrome 06037017 Completed 201203/13/2014 RECORDED 05/29/20 13 10:14AM BY MADDIE PEREZ I ANNOTATI ON/ADDEN DUM Not Available [facility] 4 14:55:30 Carpal tunnel syndrome 83454390 Completed 201204/05/2014 RECORDED 05/29/20 13 10:14AM BY MADDIE PEREZ I ANNOTATI ON/ADDEN DUM Not Available [facility] 4 13:05:06 Carpal tunnel syndrome 92627914 Completed 201204/06/2014 RECORDED 05/29/20 13 10:14AM BY MADDIE PEREZ I ANNOTATI ON/ADDEN DUM Not Available [facility] 4 03:52:21 Medial epicondy litis 84730855 Completed 201303/13/2014 RECORDED 09/26/19 14 8:01AM BY MADDIE PEREZ I ANNOTATI ON/ADDEN DUM Not Available [facility] 4 14:55:31 Knee pain Completed 201303/13/2014 RECORDED 09/26/19 14 8:01AM BY MADDIE PEREZ I ANNOTATI ON/ADDEN DUM Not Available [facility] 4 14:55:31 Hypertro phic conditio n of skin 90053562 Completed 201303/13/2014 RECORDED 09/26/19 14 8:01AM BY MADDIE PEREZ I ANNOTATI ON/ADDEN DUM Not Available [facility] 4 14:55:31 Medial epicondy litis 10824493 Completed 201304/05/2014 RECORDED 09/26/19 14 8:01AM BY MADDIE PEREZ I ANNOTATI ON/ADDEN DUM Not Available [facility] 4 13:05:07 Knee pain Completed 201304/05/2014 RECORDED 09/26/19 14 8:01AM BY MADDIE PEREZ I ANNOTATI ON/ADDEN DUM Not Available [facility] 4 13:05:07 Hypertro phic conditio n of skin 55410082 Completed 201304/05/2014 RECORDED 09/26/19 14 8:01AM BY MADDIE PEREZ I, ANNOTATI ON/ADDEN DUM Not Available [facility] 4 13:05:07 Medial epicondy litis 58158262 Completed 201304/06/2014 RECORDED 09/26/19 14 8:01AM BY MADDIE PEREZ I ANNOTATI ON/ADDEN DUM Not Available [facility] 4 03:52:21 Knee pain Completed 201304/06/2014 RECORDED 09/26/19 14 8:01AM BY MADDIE PEREZ I, ANNOTATI ON/ADDEN DUM Not Available [facility] 4 03:52:21 Hypertro phic conditio n of skin 48007040 Completed 201304/06/2014 RECORDED 09/26/19 14 8:01AM BY MADDIE PEREZ I, ANNOTATI ON/ADDEN DUM Not Available [facility] 4 03:52:21 Allergic rhinitis 94794360 Active 2013 Followed by Allergahsan t Kaushal Lazar MD [address] [facility] [address], [place], [address] , [facility] 8 08:22:34 Patient status finding 260997627 Completed 201310/22/2016 RECORDED 03/09/20 14 3:14PM BY IDALIA GAMEZ MA, OFFICE VISIT Kaushal Lazar MD [address] [facility] [address], [place], [address] , [facility] 7 15:13:41 Adult health examinat ion Completed 201310/22/2016 RECORDED 03/09/20 14 3:14PM BY IDALIA GAMEZ MA, OFFICE VISIT Kaushal Lazar MD [address] [facility] [address], [place], [address] , [facility] 7 15:13:52 Impotenc e of organic origin Active 2013 Carly ozuna [place] null, [facility] 7 11:27:33 Malaise and fatigue 267670318 Active 2013 IMPRESSI ON: VIT B12 BORDERLI NE [facility] 7 11:27:37 Testicul ar hypofunc tion 061080995 Active 2013 LOW TESTOSTE PABLO ON AN 8AM TEST. GIVEN HIS YOUNG AGE WILL REFER TO ENDOCRIN E. WILL DO TESTING BELOW ,8AM TEST I OFFERED HIM MRI PITUITAR Y NOW, BUT HE WANTS TO SEE ENDOCRIN E FIRST AND JAVON THEM DECIDE IF HE NEEDS THIS [facility] 7 11:27:30 Hypogona dism 08787403 Active [facility] 8 13:49:37 Pain in right knee Active 2017 Referred to [facility]; patellar subluxat ion Kaushal Lazar MD [address], [place], [address] , [facility] 8 08:56:13 Chronic allergic conjunct ivitis 90207069 Active 2017 Kaushal Lazar MD [address], [place], [address] , [facility] 8 08:22:50 Problem Notes None recorded. Procedures Surgical History Date Name Laterality Status Provider Name and Address Organization Details Recorded Time 5 Unlisted px ant segment eye completed Carly rodriguez MA [facility] 12/15/2017 13:55:47 Imaging Results None recorded. Procedure [...] e 50 mcg/actua tion nasal spray,zandra pension [place] 1 spray every day by intranas al [...] Details Last Updated DateTime 7 168.91 cm 35890.9 9 g 33.5 kg/m2 78 /min 98 % 97 [degF] 136/86 mm[Hg] Maddie Taylor [facility] 7 15:08:30 Date Recorded Body height Body temperature Oxygen saturation Heart rate Body mass index (BMI) Body weight Systolic And Diastolic Provider Name and Address Organization Details Last Updated DateTime 8 168.91 cm 98.1 [degF] 97 % 76 /min 34.2 kg/m2 59603.3 6 g 122/78 mm[Hg] Carly sims [facility] 8 13:59:15 Date Recorded Body height Body weight Oxygen saturation Body mass index (BMI) Body temperature Heart rate Systolic And Diastolic Provider Name and Address Organization Details Last Updated DateTime 5 168.91 cm 00078.3 5955 g 98 % 34.2 kg/m2 97.8 [degF] 78 /min 122/78 mm[Hg] [facility] 5 16:19:10 Date Recorded Body height Body weight Body mass index (BMI) Heart rate Oxygen saturation Body temperature Systolic And Diastolic Provider Name and Address Organization Details Last Updated DateTime 6 168.91 cm 44933.5 4 g 34.5 kg/m2 99 /min 97 % 97 [degF] 136/82 mm[Hg] Maddie Taylor [facility] 6 14:22:16 Date Recorded Body height Body temperature Oxygen saturation Heart rate Body mass index (BMI) Body weight Systolic And Diastolic Provider Name and Address Organization Details Last Updated DateTime 7 168.91 cm 97.5 [degF] 98 % 70 /min 33.9 kg/m2 47156.1 7 g 124/82 mm[Hg] Carly sims MA [facility] 7 11:32:29 Social History Question Answer Notes LastModified by Organizat ion Details LastModified Time Tobacco Smoking Status Never Smoker Not Available [facility] 07/02/2020 03:36:35 Do You Have An Advance Directive? No None On File [id number] Information not available 07/02/2020 Is Blood Transfusion Acceptable In An Emergency? Yes [id number] Information not available 07/02/2020 What Is Your Level Of Caffeine Consumption? Moderate 1-2 Cups Of Coffee Daily [id number] Information not available 07/02/2020 How Much Tobacco Do You Chew? None [id number] Information not available 07/02/2020 What Type Of Diet Are You Following? REGULAR [id number] Information not available 07/02/2020 Which Illicit Or Recreational Drugs Have You Used? None [id number] Information not available 07/02/2020 Live Alone Or With Others? With Others (Nate) And 2 Kids bsvalentina Information not available 12/15/2017 Do You Take Precautions To Prevent Distracted Driving? Yes Information not available 06/03/2016 How Often Do You Need To Have Someone Help You When You Read Instructions, Pamphlets, Or Other Written Material From Your Doctor Or Pharmacy? Never Information not available 06/03/2016 Have You Served In The ? Yes [facility] Sleepkatherine Information not available 06/03/2016 What Was The Date Of Your Most Recent Tobacco Screening? 12/15/2017 [id number] Information not available 07/02/2020 How Many Children Do You Have? 2 Hodan And Johemi [id number] Information not available 07/02/2020 Do You Use Protection During Sex? No [id number] Information not available 07/02/2020 Seat Belts Used Routinely Yes Information not available 06/03/2016 Are You Sexually Active? Yes [id number] Information not available 07/02/2020 Smoke Alarm In Home Yes Information not available 06/03/2016 At What Age Did You Start Smoking Tobacco? 1 [id number] Information not available 07/02/2020 Are You Passively Exposed To Smoke? No [email or web address] Information not available 06/03/2016 How Much Tobacco Do You Smoke? No [id number] Information not available 07/02/2020 Do You Use Sunscreen Routinely? Yes [id number] Information not available 07/02/2020 How Many Years Have You Smoked Tobacco? 0 [id number] Information not available 07/02/2020 Sex: Unknown Functional Status Question Answer Note LastModified by Organizat ion Details LastModified Time What is your level of alcohol consumption? Occasional very rare [id number] Information not available 07/02/2020 Are you currently employed? Yes [id number] Information not available 07/02/2020 Are you able to care for yourself independently? Yes [id number] Information not available 07/02/2020 What is your occupation? [employer] Information not available 06/03/2016 What is your exercise level? Moderate 3 x week [id number] Information not available 07/02/2020 Mental Status None recorded. Family History Nothing Reported. Medical History No medical history recorded. Immunizations Vaccine Type Date Status Note Provider Nam e and Address Organization Details Recorded Time Influenza, split virus, quadrivalent, preservative 6 completed Maddie carbajal [facility] 10/22/2016 15:09:29 Influenza, split virus, trivalent, preservative 7 completed [place] Richardson [facility] 12/15/2017 13:56:34 Tdap 7 completed Not Available [facility] 09/16/2019 02:21:45 Influenza, split virus, trivalent, preservative 2 completed Not Available [facility] 03/13/2014 13:41:19 Td (adult), 2 Lf tetanus toxoid, preservative free, adsorbed 8 completed Not Available [facility] 03/13/2014 13:41:19 Past Encounters Encounter ID Performer Location Encounter Start Date Encounter Closed Date Diagnosis/Indication Diagnosis SNOMED-CT Code Diagnosis ICD10 Code Diagnosis IMO Codes Diagnosis Note [id number] autoEComm erce [address] [facility] [place], [place] [address] 11/10/2010 00:00:00 [id number] autoEComm erce [address] [facility] [address] [address] [place], [place] [address] 06/09/2011 00:00:00 [id number] autoEComm erce [address] [facility] [address] [place], [place] [address] 02/03/2012 00:00:00 [id number] autoEComm erce [address] [facility] [address] [place], [place] [address] 05/05/2012 00:00:00 [id number] autoEComm erce [address] [facility] [address] [place], [place] [address] 05/29/2013 00:00:00 [id number] autoEComm erce [address] [facility] [place], [place] [address] 09/26/2013 00:00:00 [id number] auto[facility]Comm erce [address] [facility] [place], [place] [address] 03/09/2014 00:00:00 [id number] Lonnie Paz MD Main Office [address] [address] [place], [place] [address] 08/29/2014 12:44:45 08/29/2014 13:28:08 Hemorrhoids 04731094 First episode. Approaches for prevention discussed. Call is persistent or worse. Indigestion 837362688 PPI trial advised. Will need further eval if symptoms are persistent /worse. Swelling of hand 707600516 Likely ganglion cyst vs lipoma. Advised to call if symptomati c or enlarging. [id number] Kaushal Lazar MD Main Office [address] [address] [place], [place] [address] 03/25/2015 16:07:08 03/25/2015 16:40:30 Allergic rhinitis 03936656 no longer responding to nasal steroids and antihistam shannan [id number] Kaushal Lazar MD Main Office [address] [address] [place] [address] 06/03/2016 14:03:09 06/03/2016 14:53:31 Gastroesophageal reflux disease 491161982 K21.9 Acute sinusitis 50167972 J01.90 I instructed him to continue with antihistam ine and to use it twice a day for the next 5 days. Also continue with flonase. [id number] Kaushal Lazar MD Main Office [address] [place] [address] 10/22/2016 14:57:01 10/22/2016 15:32:40 Adult health examination 568410050 Z00.00 Will update his immunizati on today. Discussed exercise and he does this 5-6 times a week. No problems with alcohol or drugs. Administra tion of viral vaccine 75900357 Z23 [id number] Cam Mccarthy PA-C Main Office [address] [place] [address] 07/12/2017 11:20:43 07/12/2017 12:17:36 Allergic rhinitis 23521998 J30.9 year long x many yrs - pt requested allergy eval Acute sinusitis 96445664 J01.90 Epistaxis 68359910 R04.0 mild, most likely d/t SE of flonase - rec. use ns spray more often, christopher ac flonase - and also use vas pj c qtip in nares at hs prn [id number] Kaushal Lazar MD Main Office [address] [place] [address] 12/15/2017 13:39:15 12/15/2017 14:47:31 Adult health examination 345080842 Z00.00 No problems with alcohol or drugs. Knee pain 89884295 M25.5 61 M25.562 He will call if this persists and we will do a referral to [facility] Health Concerns Section Related Observation LastModified by Organization Detai ls LastModified Time None Recorded Concern Status LastModified by Organization Details LastModified Time None Recorded Advance Directives Directive N: none on file Payers Insurance Date Sequence Insurance Name Policy Number Policy Funes Covered Member ID Funes Member ID Guarantor Name 03/29/2018 1 [place] [place]) 112 Kenny Olmedo [id number] Kenny Olmedo Notes Date Note Type Note [...] He has never been seen by an medical manager. Kaushal Lazar MD [address] [address], [place], [address], [facility] 03/26/2015 06:43:10 06/03/2016 text/html Sinusitis/Allerg yRepor [...] in the HPI Kaushal Lazar MD [address], [address], [facility] 06/03/2016 15:04:20 10/22/2016 text/html Generic HPI TemplateReported by Patient Overall doing well. No current complaints. 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 Kaushal Lazar MD [address] [address], [place], [address], [facility] 10/23/2016 07:42:38 07/12/2017 text/html + h/o allergies year round - never seen by medical manager - requests eval h/o sinusitis ~ yrly c/o 2+ wks head congest, pur nasal dc no f/c, tooth pain using flonase, zyrtec occ gets small amount of nosebleed Kaushal Lazar MD [address] [facility] [address], [place], [address], [facility] 07/13/2017 10:25:13 12/15/2017 text/html Generic HPI TemplateReported [...] tried OTC NSAIDs w/o much help. Inga carbajal [facility] 12/16/2017 16:34:10
--- OUTSIDE RECORDS SUMMARY | 2025-08-10 19:50 | XMS_ITS | Encounter Summary ---
Author Organization [facility] Address [address] [place] [address] Phone Care Team Providers Care Advertising Manager Name Role Phone Pcp, Unknown Primary Care Provider Chao Vicente DO Primary Care Provider [phone] Encounter Details Date Type Department Care Team (Late st Contact Info) Description 10/23/2019 Procedure Pass [address] [place] [address] Social History Tobacco Use Types Packs/Day Years [...] on filedocumented in this encounter Care Teams Advertising Manager Relationship Specialty Start Date End Date Pcp, Unknown PCP - General 10/23/19 10/23/19 Chao Sutherland DO PCP - General Internal Medicine 10/24/19 documented as of this encounter Additional Source Comments The information contained in this document represents components of the legal health record. It is not the complete legal health record.[facility]
--- OUTSIDE RECORDS SUMMARY | 2025-08-10 19:50 | XMS_ITS | Encounter Summary ---
Author Organization [facility] Address [address] [facility] [address] [place] [address] Phone Care Team Providers Care Wig Sales Consultant Name Role Phone Pcp, Unknown Primary Care Provider Chao Vicente DO Primary Care Provider [phone] Reason for Referral * MRI/CAT Scan - Closed Specialty Diagnoses / Procedures Referred By Florina mera Referred To Contact Radiology Diagnoses Tear of right rotator cuff, unspecified tear extent, unspecified whether traumatic Procedures MRI Shoulder (Right) Chao Sutherland DO Phone: tel: fax: [email or web address] Referral ID Status Reason Start Date Expiration Date Visits Re quested Visits Authorized [id number] Closed 10/23/2019 10/22/2020 1 1 Encounter Details Date Type Department Care Team (Late st Contact Info) Description 10/23/2019 Transcribe Orders Virtual Department [address] [place] [address] Chao Sutherland DO [address] [facility] [address] [place] [address] [email or web address] Tear of right rotator cuff, unspecified tear [...] traumatic documented in this encounter Care Teams Wig Sales Consultant Relationship Specialty Start Date End Date Pcp, Unknown PCP - General 10/23/19 10/23/19 Chao Sutherland DO [email or web address] PCP - General Internal Medicine 10/24/19 documented as of this encounter Additional Source Comments The information contained in this document represents components of the legal health record. It is not the complete legal health record.[facility]
--- OUTSIDE RECORDS SUMMARY | 2025-08-10 19:50 | XMS_ITS | Data Portability ---
Author Organization [facility], Telehealth Patient Home Address [address] [place] [address] Assessment No assessment recorded. Plan of Treatment Reminders Order Date Submit Date Provider Last Modified By Organization Details Last Modified Time Details Appointments None recorded. Lab testostero ne, total, serum 2022 023 [facility], [address] [place] [address], [address], 3 11:45:45 vitamin D, 25-hydroxy , total, serum 2022 023 [facility], [address] [place] [address], [address], 3 11:20:31 CMP, serum or plasma 2022 023 [facility], [address] [place] [address], [address], 3 12:05:40 lipid panel, blood 2022 023 [facility], [address] [place] [address], [address], 3 11:20:31 CBC w/ diff 2022 023 [facility], [address] [place] [address], [address], 3 11:20:31 CMP, serum or plasma 042021 [facility], [address] [place] [address], [address], 11:16:30 lipid panel, blood 2021 [facility], [address] [place] [address], [address], 11:16:30 CBC w/ diff 2021 [facility], [address] [place] [address], [address], 11:16:30 vitamin D, 25-hydroxy , total, serum 2021 [facility], [address] [place] [address], [address], 12:15:08 TSH, serum or plasma 2021 [facility], [address] [place] [address], [address], 11:16:30 testostero ne, total, serum 2021 [facility], [address] [place] [address], [address], 12:09:05 Referral None recorded. Procedures None recorded. Surgeries None recorded. Imaging US, testicle 2021 [email or web address] [facility] (Imaging), [address] [place] [address], [address], 08:56:22 home sleep study - Per website- Hst w/type iii prtble mon unattended min 4 ch No referral required 2021 [email or web address] [facility] Central Scheduling, [address] [place] [address], [address], 09:59:43 Medication Orders Valtrex 1 gram tablet [address] [id number], [address] [place], [id number], 5 09:25:05 diclofenac sodium 75 mg tablet,del ayed release [address] [id number], [address] [facility] [place], [id number], 5 09:24:19 Patient TargetsNo targets recorded. Patient InstructionsNo instructions recorded. Reason for Referral None Reported. Results Created Date Observation Date Name Description Value Unit Range Abnormal Flag Note LastModifiedBy Organization Detail LastModifiedTime 12/09/19 22 12/08/2021 XR, lumbo sacra l spine No observ ation record ed. RAN Not Available 2021 09:27:49 12/20/19 22 12/18/2021 US, testi tadeo No observ ation record ed. [facility] [address] [place], [address], 12/23/2021 08:25:30 02/12/20 22 01/29/2022 home sleep study No observ ation record ed. [facility] [address] [place] [address], [address], 02/16/2022 08:23:36 11/03/19 24 11/02/2023 RF, upper gastr ointe devon l tract , w/ contr ast PO No observ ation record ed. [email or web address] [facility] (Medical Records) [address] [place] [address] [place], [address], 11/05/2023 08:44:43 05/12/20 24 05/05/2024 XR, shoul radha, 2 or more view No observ ation record ed. [email or web address] [facility] (Medical Records) [address] [facility], [place], [address], 05/15/2024 22:47:08 05/23/20 24 05/22/2024 MRI, cathie garcia, w/o contr ast No observ ation record ed. [email or web address] [facility] [address], [place], [address], 05/30/2024 22:32:39 Result Notes None recorded. Problems Name Problem SNOMED Code Status Onset Date Resolution Date Notes Provider Name and Address Organization Details Recorded Time Pain of left testicle 179931981012 12044 Active 2021 Chao Sutherland DO [address] [place] [address], [address], [facility] 2 12:09:34 Fatigue 47188307 Active 2021 Chao Sutherland DO [address] [place] [address], [address], [facility] 2 12:11:04 Low back pain 531500757 Active 2021 Chao Sutherland DO [address] [place] [address], [address], [facility] 2 10:09:04 Herpes labialis 0555487 Active 2021 TATIANA JIMENEZ [address] [place] [address], [address], [facility] 2 16:00:32 Hypotesto steronism 182027730467 4 Active 2021 Chao Sutherland DO [address] [place] [address], [address], [facility] 5 23:13:58 Lumbago with sciatica 744662069 Active 2021 Chao Sutherland DO [address] [place] [address], [address], [facility] 2 15:09:59 Lumbago with sciatica 233325249 Active 2021 Chao Sutherland, DO [address] [place] [address], [address], [facility] 2 15:10:15 Vitamin D deficienc y 59628349 Active 2022 Chao Sutherland, DO [address] [place] [address], [address], [facility] 3 11:12:06 Esophagea l dysphagia 28410069 Active 2023 Chao Danielle Sutherland, DO [address] [place] [address], [address], [facility] 4 12:26:36 Esophagea l dysmotili ty 682403237 Active 2023 TATIANA JIMENEZ [address] [place] [address], [address], [facility] 4 08:45:51 Injury of tendon of the rotator cuff of shoulder 972628140 Active 2023 Chao Sutherland, DO [address] [place] [address], [address], [facility] 4 22:48:12 Injury of tendon of the rotator cuff of shoulder 675746883 Active 2023 Chao Sutherland, DO [address] [place] [address], [address], [facility] 5 09:42:27 Partial thickness rotator cuff tear 772289300 Active 2023 Chao Sutherland, DO [address] [place] [address], [address], [facility] 4 22:34:23 Rupture of rotator cuff of right shoulder 463466347476 44949 Active 2023 Chao Sutherland DO [address] [place] [address], [address], [facility] 4 15:57:54 Problem Notes None recorded. Procedures Surgical History Date Name Laterality Status Provider Name and Address Organization Details Recorded Time 020 Corticosteroid Injection completed Chao BernardoCeleste Badillosupriya, DO [address] [facility], [place], [address], [facility] 11/08/2019 11:35:48 Appendectomy completed Kamini Aguirre [facility] 10/23/2019 11:51:58 Vasectomy completed Kamini Aguirre [facility] 10/23/2019 11:52:08 Imaging Results [...] Updated DateTime 2 170.18 cm 35.6 kg/m2 337439. 9 g 92 /min 97 % 118/70 mm[Hg] Chao Sutherland DO [address] [place], [address] 2 11:56:39 Date Recorded Body height Body mass index (BMI) Body weight Heart rate Oxygen saturation Systolic And Diastolic Provider Name and Address Organization Details Last Updated DateTime 3 170.18 cm 36.6 kg/m2 744791. 61 g 73 /min 98 % 118/60 mm[Hg] Chani Haddad [facility] 3 10:49:03 Date Recorded Body height Body mass index (BMI) Body weight Heart rate Oxygen saturation Systolic And Diastolic Provider Name and Address Organization Details Last Updated DateTime 2 170.18 cm 35.2 kg/m2 373720. 21 g 85 /min 98 % 120/70 mm[Hg] TATIANA JIMENEZ [address] [place], [address] 2 15:56:46 Date Recorded Body height Body mass index (BMI) Body weight Oxygen saturation Heart rate Systolic And Diastolic Provider Name and Address Organization Details Last Updated DateTime 1 170.18 cm 35 kg/m2 207591. 89 g 98 % 78 /min 120/80 mm[Hg] Jessica Medrano [facility] 1 11:08:19 Date Recorded Body weight Oxygen saturation Heart rate Systolic And Diastolic Provider Name and Address Organization Details Last Updated DateTime 05/23/2025 671075.48 g 97 % 87 /min 118/72 mm[Hg] JEROME MICKY [facility] 05/23/2025 09:26:50 Social History Question Answer Notes LastModified by [email or web address] Details LastModified Time Tobacco Smoking Status [facility] 11:47:58 What Is Your Level Of Caffeine Consumption? Moderate 2 Cups Coffee Per Day Information not available 10/23/2019 What Was The Date Of Your Most Recent Tobacco Screening? 05/23/2025 [email or web address] Information not available 05/23/2025 Sex: Unknown Functional Status Question Answer Note LastModified by [email or web address] Details LastModified Time What is your level [...] mcg/0.3 mL dose 1 completed Jessica carbajal [facility] 05/12/2021 09:39:34 COVID-19, mRNA, LNP-S, PF, 30 mcg/0.3 mL dose 1 completed Jessica carbajal [facility] 05/12/2021 09:39:40 Influenza, split virus, quadrivalent, preservative 1 completed Chao Danielle Sutherland [address], [address], [facility] 12/02/2021 11:55:50 Influenza, split virus, quadrivalent, preservative 9 completed [facility] 10/23/2019 11:47:48 Past Encounters Encounter ID Performer Location Encounter Start Date Encounter Closed Date Diagnosis/Indication Diagnosis SNOMED-CT Code Diagnosis ICD10 Code Diagnosis IMO Codes Diagnosis Note [id number] Chao Sutherland [facility] [address],[place] [address] 10/23/2019 11:26:37 10/23/2019 14:20:39 Rupture of rotator cuff of right shoulder 0445245862 8021345 M75.101 will see after and refer to ortho as necess Adult heal th examination 012317018 Z00.00 [id number] Chao Sutherland [facility] [address], [place] [address] 11/08/2019 10:26:27 11/08/2019 11:40:57 Bursitis of right shoulder 9341938948 74941 M75.51 cortisone inj well tolerated [id number] Chao Sutherland [address],[facility] [place] [address] 07/24/2020 10:56:21 07/24/2020 11:39:39 Right lateral elbow tendinopathy 6922869513 88112 M77.11 will do trial of diclofenac and have him use elbow strap and see if improvemen t [id number] Chao Sutherland [facility] [address], [place] [address] 05/12/2021 10:58:31 05/13/2021 16:46:17 Strain of tendon of adductor muscle of thigh 891035785 S76.212A will trreat with rest ice and will use diclofenac [id number] Chao Sutherland [facility] [address] [facility] [facility] [address] 12/02/2021 11:50:32 12/02/2021 13:42:07 Active or passive immunization 594279083 Z23 [facility] Adult heal th examination 016003535 Z00.01 Pain of left testicle 16 99858437 0298664 N50.812 Fatigue 25659277 R53.83 [id number] Chao Sutherland [facility] [address] [facility], [place] [address] 03/25/2022 15:50:57 03/25/2022 16:16:40 Herpes labialis 4619046 B00.1 will start on valtrex [id number] Chao Sutherland [facility] [address] [facility], [place] [address] 12/23/2022 10:41:46 12/23/2022 11:41:24 Active or passive immunization 765006023 Z23 [facility] Adult heal th examination 850180414 Z00.00 doing well no major issuesdisc ussed meds and we will chk levels as well Vitamin D deficiency 347 11117 E55.9 will need to check just finished winter weather Hypotestosteronism 12577 34754 104 R79.89 not feeling all that much improved with T replacemen t ; ? need for higher dose [id number] Chao Sutherland [facility] [address] [facility], [place] [address] 05/23/2025 09:20:40 05/23/2025 09:46:37 Pre-surgery evaluation 401958951 Z01.818 Per the 2017 ACC cardiac risk stratifica tion (revised) this patient poses an extremely low risk for the proposed procedure and is cleared at this time. He is on no medication s . Injury of tendon of the rotator cuff of shoulder 698650770 S46.001D noted will have surgical repair this wednesday Health Concerns Section Related Observation LastModified by Organization Detai ls LastModified Time None Recorded Concern Status LastModified by Organization Details LastModified Time None Recorded Advance Directives Directive None Recorded Payers Insurance Date Sequence Insurance Name Policy Number Policy Funes Covered Member ID Funes Member ID Guarantor Name 05/22/2025 1 [facility] () Kenny Kimgo [id number] Kenny Olmedo Notes Date Note Type Note [...] past but not this severe Chao Sutherland, DO [address] [place], [address], [facility] 05/12/2021 11:34:42 2 text/html Annual [...] For vision, patient reportsno vision problems. Chao Sutherland, DO [address] [place], [address], [facility] 12/02/2021 12:13:43 2 text/html ROS as noted in the HPI f/u sores around the lips the patient was recently at the [facility] developed sore around his lips classic presentation and appearance of sores on the lips for cold sores will fu with valtrex treatment will fu if no improvement TATIANA JIMENEZ [address] [place], [address], [facility] 03/25/2022 16:09:23 3 text/html Annual [...] noted in the HPI Chao Sutherland DO [address] [place] [address], [address], [facility] 12/23/2022 11:18:44 5 text/html Pre-OpReported by PatientHPIFor risk factors, [...] no other constitutional signs Chao Sutherland DO [address] [place] [address], [address], [facility] 05/23/2025 09:42:40
--- OUTSIDE RECORDS SUMMARY | 2025-08-10 19:50 | XMS_ITS | Data Portability ---
Author Organization [facility] Danyel [facility], [facility] Address [address] [place] [address] Care Team Providers Care Associate Professor Of Sociology Name Role Phone BARBY VAUGHN Primary Care [...] grossly intact. Eyes: Sclera are not blue. citrix lead II-XII are grossly intact. Full extraocular motion. [...] Positive impingement signs on the right. Positive Macomb's test. Mild biceps tenderness. No significant acromioclavicular [...] activities is allowed. Impression and Plan: 44-year-old zjfdd-tuaf-zmoehlle male with a two-month history of right [...] a low-dose oral anti-inflammatory such as ibuprofen djao-ufa-drlhqfn and/or Tylenol as needed. I referred the [...] visit note. This note was generated with [facility] speech recognition high school learning support teacher dictation software. Please excuse any errors that may have been overlooked during review of this note. Sometimes, these errors may affect the content or meaning of a given sentence. Please call for corrections. Not available 06/15/2024 13:04:20 09/14/2024 09/14/2024 Chief [...] grossly intact. Eyes: Sclera are not blue. citrix lead II-XII are grossly intact. Full extraocular motion. [...] Positive impingement signs on the right. Positive Macomb's test. Mild biceps tenderness. No significant acromioclavicular joint tenderness. Positive impingement signs. Impression and Plan: 44-year-old chxyz-empe-yndvcodf male with a two-month history of right [...] a low-dose oral anti-inflammatory such as ibuprofen dwpx-ape-xinxwxr and/or Tylenol as needed. Should symptoms persist, surgical intervention may be necessary. All questions and concerns were addressed. Today's visit involved examining the patient, reviewing the history, reviewing the radiographic studies, counseling the patient regarding treatment options, and the administrative tasks including placing orders, preparing patient information and home handouts and preparing the visit note. This note was generated with [facility] speech recognition high school learning support teacher dictation software. Please excuse any errors that may have been overlooked during review of this note. Sometimes, these errors may affect the content or meaning of a given sentence. Please call for corrections. [email or web address] Not available 09/14/2024 16:32:54 Plan of Treatment [...] by: Referring Physician: Tj Villarreal, Orthopedic Surgery, [id number] Encounter Date: 06/15/2024 Results Created Date Observation [...] Sports Shoulder completed Tj Villarreal MD [address] [facility] [address] [facility], [place], [address], [facility] 06/15/2024 13:04:58 Imaging Results None [...] Updated DateTime 09/14/2024 170.18 cm 35.2 kg/m2 781666.28 g RADHA GONSALEZ [facility] 09/14/2024 15:44:12 Date Recorded Body height Body mass index (BMI) Body weight Provider Name and Address Organization Details Last Updated DateTime 06/15/2024 170.18 cm 35.2 kg/m2 505208.28 g RADHA GONSALEZ [facility] 06/15/2024 14:28:10 Social History None recorded. Functional Status None recorded. Mental Status None recorded. Family History Nothing Reported. Medical History No medical history recorded. Past Encounters Encounter ID Performer Location Encounter Start Date Encounter Closed Date Diagnosis/Indication Diagnosis SNOMED-CT Code Diagnosis ICD10 Code Diagnosis IMO Codes Diagnosis Note [id number] Tj Villarreal MD [facility] 2nd floor [address] [place] [address] 06/15/2024 10:26:17 07/10/2024 12:25:33 Anterior to posterior tear of superior glenoid labrum of right shoulder 8631888539 3748263 S43.431A 0946427244 Disorder of shoulder 118 382164 M25.811 78106129 [id number] [facility] 2[facility] [address] [place] [address] 09/14/2024 15:36:12 09/25/2024 12:27:25 Disorder of shoulder 576234952 M25.811 27912802 Injury of superior glenoid labrum of shoulder joint 054097851 S43.431D 619409 Traumatic partial rupture of rotator cuff of right shoulder 7925292385 92539079 S46.011D 008253924 Health Concerns Section Related Observation LastModified by Organization Detai ls LastModified Time None Recorded Concern Status LastModified by Organization Details LastModified Time None Recorded Advance Directives Directive None Recorded Payers Insurance Date Sequence Insurance Name Policy Number Policy Funes Covered Member ID Funes Member ID Guarantor Name 09/27/2024 1 [facility] Kenny Olmedo [id number] Kenny lOmedo 09/27/2024 1 [facility] () Kenny Olmedo [id number] Kenny Olmedo
== END 2025-08-10 14:41 | disposition home or self-care (01) ==
LOC: HO.HMGCLDS 14:40
PROVIDERS: PCP Internal Medicine; Visit Provider Internal Medicine
DX: E34.9 Endocrine disorder, unspecified (principal)
CPT/HCPCS: 36415; 84270; 84403